=== PATIENT | female | born 2000 | race Caucasian/White ===

== ENCOUNTER 2021-08-06 05:56 | Emergency (ER) | payer OTHER, SELFPAY ==
--- OUTSIDE RECORDS SUMMARY | 2021-08-06 05:59 | XMS REPORT | Continuity of Care Document ---
:2000 Author Organization [facility] t Address [address] [place] [address] Dr. Nazario [address] [place] [id number] Care Team Providers Name Role Phone Unavailable Unavailable Unavailable Problems This patient has no known problems. Allergies, Adverse Reactions, Alerts This patient has no known allergies or adverse reactions. Medications This patient has no known medications. Procedures This patient has no known procedures. Results This patient has no known results.
[2021-08-06] MEDS ORDERED: NA CHLORIDE 0.9% 1,000 ML ONE (06:31)
[2021-08-06 06:47] LABS: Lymphocytes % 33.2 % (15.3-44.8); MPV 8.6 fL (7.6-11.3); RBC Red Blood Cell Count 4.97 M/uL (3.86-4.86)
[2021-08-06 06:49] LABS: Urine Blood Negative (Negative); Urine Glucose Negative (Negative); Urine Protein 2+ (Negative); Urine Specific Gravity >=1.030 (1.005-1.030)
[2021-08-06 07:07] LABS: ALT/SGPT 48 U/L (12-78); AST/SGOT 21 U/L (15-37); Alkaline Phosphatase 70 U/L (45-117); BUN Blood Urea Nitrogen 11 mg/dL (7-18); Bicarbonate 24 mmol/L (21-32); Bilirubin Total 0.3 mg/dL (0.2-1.0); Glucose Level 96 mg/dL (74-106); Potassium 3.2 mmol/L (3.5-5.1); Sodium Level 138 mmol/L (136-145)
[2021-08-06] MEDS ORDERED: POTASSIUM CL SA 10 MEQ TAB PO ONE (07:27)
--- NOTE | 2021-08-06 07:30 | EDPHYS ---
Physician Documentation [facility] Name: Theresa Kearney Age: 21 yrs Sex: Female : 2000 Arrival Date: 08/06/2021 Time: 06:02 Bed 19 Private MD: ED Physician Shailesh Ray HPI: 08/06 06:39 This 21 yrs old Female presents to ER via Ambulatory with complaints of Near Syncope. jr8 06:39 This is a 21-year-old female patient that presented to the emergency room with jr8 complaints of near syncope. Patient stated that she felt acutely dizzy yesterday. All randomly presented self and is not positional. Patient stated that she is now 9 days late for her menstrual cycle and is concerned that it may be related to possibly being . Denies any other symptoms at this time.. Onset: The symptoms/episode began/occurred acutely, yesterday. The patient has not experienced similar symptoms in the past. The patient has not recently seen a physician. 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 - Social history:: Smoking status: Patient denies any tobacco usage or history of. ROS: 06:39 Eyes: Negative for injury, pain, redness, and discharge, ENT: Negative for injury, jr8 pain, and discharge, Neck: Negative for injury, pain, and swelling, Cardiovascular: Negative for chest pain, palpitations, and edema, Respiratory: Negative for shortness of breath, cough, wheezing, and pleuritic chest pain, Abdomen/GI: Negative for abdominal pain, nausea, vomiting, diarrhea, and constipation, Back: Negative for injury and pain, MS/Extremity: Negative for injury and deformity, Skin: Negative for injury, rash, and discoloration. 06:39 Neuro: Positive for near syncope. Exam: 06:39 Constitutional: This is a well developed, well nourished patient who is awake, alert, jr8 and in no acute distress. Eyes: Pupils equal round and reactive to light, extra-ocular motions intact. Lids and lashes normal. Conjunctiva and sclera are non-icteric and not injected. Cornea within normal limits. Periorbital areas with no swelling, redness, or edema. Neck: Trachea midline, no thyromegaly or masses palpated, and no cervical lymphadenopathy. Supple, full range of motion without nuchal rigidity, or vertebral point tenderness. No Meningismus. Cardiovascular: Regular rate and rhythm with a normal S1 and S2. No gallops, murmurs, or rubs. Normal PMI, no JVD. No pulse deficits. Respiratory: Lungs have equal breath sounds bilaterally, clear to auscultation and percussion. No rales, rhonchi or wheezes noted. No increased work of breathing, no retractions or nasal flaring. Abdomen/GI: Soft, non-tender, with normal bowel sounds. No distension or tympany. No guarding or rebound. No evidence of tenderness throughout. Skin: Warm, dry with normal turgor. Normal color with no rashes, no lesions, and no evidence of cellulitis. MS/ Extremity: Pulses equal, no cyanosis. Neurovascular intact. Full, normal range of motion. Neuro: Awake and alert, GCS 15, oriented to person, place, time, and situation. Cranial nerves II-XII grossly intact. Motor strength 5/5 in all extremities. Sensory grossly intact. Cerebellar exam normal. Normal gait. Vital Signs: 06:10 BP 124 / 70; Pulse 104; Resp 14; Temp 98.2; Pulse Ox 99% ; Weight 94.35 kg; Height 5 al4 ft. 1 in. (154.94 cm); Pain 0/10; 06:41 BP 112 / 62 Supine; Pulse 84; Pulse Ox 100% ; ll3 06:41 BP 125 / 89 Sitting; Pulse 94; Pulse Ox 99% on R/A; ll3 06:41 BP 124 / 91 Standing; Pulse 93; Pulse Ox 100% on R/A; ll3 06:10 Body Mass Index 39.30 (94.35 kg, 154.94 cm) al4 MDM: 06:09 Patient medically screened. jr8 07:24 Data reviewed: vital signs, nurses notes, lab test result(s). Data interpreted: Pulse jr8 oximetry: on room air is 100 %. Interpretation: normal. Counseling: I had a detailed discussion with the patient and/or guardian regarding: the historical points, exam findings, and any diagnostic results supporting the discharge/admit diagnosis, lab results, the need for outpatient follow up, an OB/Gyne specialist, to return to the emergency department if symptoms worsen or persist or if there are any questions or concerns that arise at home. Response to treatment: the patient's symptoms have markedly improved after treatment, patient is well hydrated. ED course: Discussed with patient that her symptoms are most likely derived from new . That she was positive on her urine. Everything else lab leon is unremarkable. Will finish hydrating her as she did have slight protein in her urine and needs to follow-up with SCHOOL TEACHER for establishment of care and to recheck her urine. Discussed with her that she needs to stop her Metformin for her PCOS. Otherwise continue her levothyroxine and to start vitamins.. 08/06 06:25 Order name: CBC with Diff [facility] 08/06 06:25 Order name: CMP [facility] 08/06 06:25 Order name: CBC with Automated Diff; Complete Time: 06:52 [facility] 08/06 06:25 Order name: Comprehensive Metabolic Panel; Complete Time: 07:08 [facility] 08/06 06:30 Order name: Glucose, Ancillary Testing; Complete Time: 06:33 [facility]OR 08/06 06:48 Order name: Urine Dipstick-Ancillary; Complete Time: 06:52 [facility] 08/06 06:25 Order name: IV Saline Lock; Complete Time: 06:41 [facility] 08/06 06:25 Order name: Labs collected and sent; Complete Time: 06:41 [facility] 08/06 06:25 Order name: Urine Dipstick-Ancillary (obtain specimen); Complete Time: 06:51 [facility] 08/06 06:25 Order name: Urine Test (obtain specimen); Complete Time: 06:51 [facility] 08/06 06:27 Order name: Orthostatics; Complete Time: 06:51 [facility] 08/06 07:00 Order name: Urine --Ancillary (enter results); Complete Time: 07:23 eb Administered Medications: 06:51 Drug: NS 0.9% 1000 ml Route: IV; Rate: 1 bolus; Site: right antecubital; ll3 07:31 Drug: Potassium Chloride 40 mEq Route: PO; rucker 07:31 Follow up: Response: No adverse reaction rucker Point of Care Testing: Blood Glucose: 06:19 Blood Glucose: 96 mg/dL; ll3 Ranges: Critical Glucose Levels:Adult <50 mg/dl or >400 mg/dl <40 mg/dl or >180 mg/dl Disposition: 19:04 Co-signature as Attending Physician, Shailesh Ray MD I agree with the assessment and kdr plan of care. Disposition Summary: 08/06/21 07:30 Discharge Ordered Location: Home jr8 Problem: new jr8 Symptoms: have improved jr8 Condition: Stable jr8 Diagnosis - Syncope Near jr8 - Encounter for test, result positive jr8 Followup: jr8 - With: Private Physician - When: 1 week - Reason: Recheck today's complaints, Continuance of care, Re-evaluation by your physician Discharge Instructions: - Discharge Summary Sheet jr8 - Near-Syncope jr8 - First Trimester of jr8 - Warning Signs During jr8 - Healthy Weight Gain During , Adult jr8 - Preventing Defects During , Adult jr8 Forms: - Medication Reconciliation Form jr8 - Thank You Letter jr8 - Antibiotic Education jr8 - Prescription Opioid Use jr8 Signatures: Dispatcher [employer] EDShailesh Bower MD MD [facility] Chip Bowles PA PA jr8 Chencho Lopez RN RN ll3 Cehle Cornell4 Janett Colon RN RN rucker
--- NOTE | 2021-08-06 07:30 | ER ---
Nurse's Notes [facility] Name: Theresa Kearney Age: 21 yrs Sex: Female : 2000 Arrival Date: 08/06/2021 Time: 06:02 Bed 19 Private MD: Diagnosis: Syncope Near;Encounter for test, result positive Presentation: 08/06 06:10 Chief complaint: Patient states: "my heart rate and blood pressure have been elevated, al4 and my blood sugar has been low. I am concerned that I might be and would like a blood test." Patient also reports new onset sore/tender breast. LMP Jul 01-. Coronavirus screen: Vaccine status: Patient reports receiving the 2nd dose of the covid vaccine. [employer]. Ebola Screen: No symptoms or risks identified at this time. Initial Sepsis Screen: Does the patient meet any 2 criteria? No. Patient's initial sepsis screen is negative. Does the patient have a suspected source of infection? No. Patient's initial sepsis screen is negative. Risk Assessment: Do you want to hurt yourself or someone else? Patient reports no desire to harm self or others. Onset of symptoms was August 05, 2021. 06:10 Method Of Arrival: Ambulatory al4 06:10 Acuity: DANIELA 3 al4 06:10 Acuity: DANIELA 4 al4 Triage Assessment: 06:25 General: Appears in no apparent distress. comfortable, Behavior is calm, cooperative, al4 appropriate for age. Pain: Denies pain. Neuro: Level of Consciousness is awake, alert, obeys commands, Oriented to person, place, time, situation. Cardiovascular: Capillary refill < 3 seconds Patient's skin is warm and dry. Respiratory: Airway is patent Respiratory effort is unlabored, Respiratory pattern is regular. GI: Reports nausea, Patient currently denies diarrhea, vomiting. Musculoskeletal: Circulation, motion, and sensation intact. 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 - Social history:: Smoking status: Patient denies any tobacco usage or history of. Screenin:41 Abuse screen: Denies threats or abuse. Nutritional screening: No deficits noted. ll3 Tuberculosis screening: No symptoms or risk factors identified. Fall Risk No fall in past 12 months (0 pts). No secondary diagnosis (0 pts). IV access (20 points). Ambulatory Aid- None/Bed Rest/Nurse Assist (0 pts). Gait- Normal/Bed Rest/Wheelchair (0 pts) Mental Status- Oriented to own ability (0 pts). Total Godinez Fall Scale indicates No Risk (0-24 pts). Assessment: 06:41 General: Appears comfortable, Behavior is calm, cooperative. Pain: Denies pain. Neuro: ll3 Level of Consciousness is awake, alert, obeys commands, Oriented to person, place, time, situation. Respiratory: Respiratory effort is even, unlabored, Respiratory pattern is regular, symmetrical. GI: Reports nausea. Derm: Skin is pink, warm \\T\\ dry. Reports Breast tenderness. Vital Signs: 06:10 BP 124 / 70; Pulse 104; Resp 14; Temp 98.2; Pulse Ox 99% ; Weight 94.35 kg; Height 5 al4 ft. 1 in. (154.94 cm); Pain 0/10; 06:41 BP 112 / 62 Supine; Pulse 84; Pulse Ox 100% ; ll3 06:41 BP 125 / 89 Sitting; Pulse 94; Pulse Ox 99% on R/A; ll3 06:41 BP 124 / 91 Standing; Pulse 93; Pulse Ox 100% on R/A; ll3 06:10 Body Mass Index 39.30 (94.35 kg, 154.94 cm) al4 ED Course: 06:02 Patient arrived in ED. wm 06:09 Chip Bowles PA is PHCP. jr8 06:09 Shailesh Ray MD is Attending Physician. jr8 06:25 Triage completed. al4 06:29 Arm band placed on. al4 06:41 Chencho Lopez, NISHI is Primary Nurse. ll3 06:41 Patient has correct armband on for positive identification. Bed in low position. Call ll3 light in reach. Side rails up X 1. Adult w/ patient. 06:41 Initial lab(s) drawn, by me, sent to lab. Urine collected: clean catch specimen, clear. ll3 Inserted saline lock: 22 gauge in right antecubital area, using aseptic technique. Blood collected. 06:51 CMP Sent. ll3 06:51 CBC with Diff Sent. ll3 08:07 No provider procedures requiring assistance completed. IV discontinued, intact, rucker Pressure dressing applied. Administered Medications: 06:51 Drug: NS 0.9% 1000 ml Route: IV; Rate: 1 bolus; Site: right antecubital; ll3 07:31 Drug: Potassium Chloride 40 mEq Route: PO; rucker 07:31 Follow up: Response: No adverse reaction Point of Care Testing: Blood Glucose: 06:19 Blood Glucose: 96 mg/dL; ll3 Ranges: Outcome: 07:30 Discharge ordered by MD. harding 08:07 Discharged to home rucker 08:07 Condition: good 08:07 Discharge instructions given to patient. 08:07 Patient left the ED. rucker Signatures: Chip Bowles PA PA jr8 Madisyn Rico Lynsea, RN RN 3 Chele Cornell Heather, RN RN
[2021-08-06 09:24] VITALS: TEMP 98.2
[2021-08-06 09:26] VITALS: BP 124/91; O2SAT 100
== END 2021-08-06 08:07 | disposition home or self-care (01) ==
LOC: ER 05:56
DX: Z32.01 Encounter for pregnancy test, result positive (principal); Z88.0 Allergy status to penicillin
CPT/HCPCS: 85025; 36415; 81025; 82947; 81003; 80053; 99284; J7030

== ENCOUNTER 2023-03-16 23:20 | Emergency (ER) | payer OTHER ==
--- OUTSIDE RECORDS SUMMARY | 2023-03-16 23:46 | XMS REPORT | Continuity of Care Document ---
:2000 Author Organization [facility] t Address [address] [place] [address] [place] [id number] Care Team Providers Name Role Phone PCP, PATIENT DOES NOT HAVE A Primary Care Physician Unavaila NIECY Santiago Attending Clinician Unavailable Niecy Anderson MD Attending Clinician Tootie Wells NP Attending Clinician TOOTIE WELLS Attending Clinician Unavailable Zach Hernandez CRNA Attending Clinician Sonya Gusman CRNA Attending Clinician Karina Ochoa MD Attending Clinician Doctor Unassigned, [place] Attending Clinician Unavailable ANIRUDH GLORIA Attending Clinician Unavailable Anirudh Gloria MD Attending Clinician Nurse, [facility] Attending Clinician Unavailable Ultrasound, Adc M[facility] Attending Clinician Unavailable Deepak Gerard MD Attending Clinician [phone] DEEPAK GERARD Attending Clinician Unavailable Ultrasound, Ang-Mfm Attending Clinician Unavailable Carla Traylor MD Attending Clinician CARLA TRAYLOR Attending Clinician Unavailable NIECY ANDERSON Admitting Clinician Unavailable Niecy Anderson MD Admitting Clinician Payers Payer Name Policy Type Policy Number Effective Date Expiration Date [facility] [id number] 2021 PREFERRED GENERIC 00:00:00 Problems Condition Condition Condition Status Onset Resolution Last Treating Co mments Source Name Details Category Date Date Treatment Clinician Date Encounter Encounter Disease Active 2021-05 Uni vers for for 111 ity of elective elective 00:00: [place] induction induction 00 [facility] labor of labor [place] Morbid Morbid Disease Active 2021-05 Univers obesity obesity 11 [place] of with body [place] 00:[place] mass index mass index 00 Me dical of Branch 40.0-49.9 40.0-49.9 Liveborn Liveborn Disease Active 2021-05 Unive rs , of , of 11 it y of rodriguez rodrigue[place] 00:[place] , , 00 [place] dical born in born in [facility] by by delivery delivery 35 weeks 35 weeks Disease Active 2021-05 Unive rs gestation gestation 0-26 ity of of of 00:00: [place] 00 [facility] 39 weeks 39 weeks Disease Active 2021-05 Unive rs gestation gestation 0-26 ity of of of 00:00: [place] 00 [facility] Rh Rh Disease Active Univers negative, negative, 8 [place]y of antepartum antepartum 00:00: [place] , third , third 00 Medical trimester trimester Bran ch Hypothyroi Hypothyroi Disease Active U nivers dism, dism, 7- ity of unspecifie unspecifie 00:00[place] d type d type 00 [facility] Hypothyroi Hypothyroi Disease Active U nivers dism dism 7-29 ity of during during 00:00: [place] 00 [facility] in third in third Branch trimester trimester Encounter Encounter Disease Active Uni vers for for 4-28 [place]y of supervisio supervisio 00:[place] of n of 00 [facility] normal normal [place] first first in first in first trimester trimester Obesity in Obesity in Disease Active U nivers 4-04 ity of 00:00: [address] Supervisio Supervisio Disease Active U nivers n of high n of high 4-04 ity of risk risk 00:00: [place] 00 Medi [facility] in third in third Branch trimester trimester No known No known Disease Unive rs active active ity of problems problems [facility] Allergies, Adverse Reactions, Alerts Allergy Allergy Status Severity Reaction(s) Onset Inactive Treating Comm ents Source Name Type Date Date Clinician Penicill Propensi Active Other - See Constipa t Univers in ty to comments 05-28 ion with ity of adverse 00:00: rectal [place] reaction 00 bleeding Medica l s Branch PENICILL DRUG Active Other-Cmnt Univ ers IN INGREDI 05-28 ity of 00:00: [place] 00 Medical Branch Social History Social Habit Start Date Stop Date Quantity Comments Source ASSERTION 2021-07-15 [facility] History of Passive smoker [place] of tobacco use [facility] Alcohol intake 2022-05-11 2022-05-11 0 /d University 00:00:00 00:00:00 [facility] Exposure to 2022-03-29 2022-04-08 Not sure [facility] SARS-CoV-2 00:00:00 08:44:00 [facility] (event) [place] Tobacco use and 2021-12-17 2021-12-17 Smokeless tobacco Un iversity of exposure 00:00:00 00:00:00 non-user [facility] Sex Assigned At 2000 2000 Universit y of 00:00:00 00:00:00 [facility] Smoking Status Start Date Stop Date Source Never smoked tobacco [facility] Medications Ordered Filled Start Stop Current Ordering Indication Dosage Frequency Signature Comments Components Source Medication Medication Date Date Medication? Clinician (SIG) Name Name [facility] 2021-05- Take by Univers no.95/pawel 2-05 -05 mouth. ity o f us 05:20: 00:00 [place] fum/folic 04 :00 Medical ac Branch ( ORAL) [facility] 2021-05 Yes Take by Univers no.95/pawel 1-13 mouth. ity of us 13:26: [place] fum/folic 33 Medical ac Branch ( ORAL) PNV 2021-05 Yes Take by Univers no.95/pawel 1-13 mouth. ity of us 13:26: [place] fum/folic 33 Medical ac Branch ( ORAL) PNV 2021-05 Yes Take by Univers no.95/pawel 1-13 mouth. ity of us 13:26: [place] fum/folic 33 Medical ac Branch ( ORAL) PNV 2021-05 Yes Take by Univers no.95/pawel 1-13 mouth. ity of us 13:26: [place] fum/folic 33 Medical ac Branch ( ORAL) PNV 2021-05 Yes Take by Univers no.95/pawel 1-13 mouth. ity of us 13:26: [place] fum/folic 33 Medical ac Branch ( ORAL) PNV 2021-05 Yes Take by Univers no.95/pawel 1-13 mouth. ity of us 13:26: [place] fum/folic 33 Medical ac Branch ( ORAL) PNV 2021-05 Yes Take by Univers no.95/pawel 1-13 mouth. ity of us 13:26: [place] fum/folic 33 Medical Branch ( ORAL) ibuprofen 2021-05 Yes 800mg 800 mg, Univ ers (IBU) 1-13 Oral, Q8H, ity of tablet 800 04:00: First dose [place] mg 00 on [facility] 04/02/22 Branch at 2200, Until Discontinu ed, Routine ibuprofen 2021-05- No 800mg 800 mg, Uni vers (IBU) 1-13 11-13 Oral, Q8H, ity of tablet 800 04:00: 21:26 First dose [place] mg 00 :36 on [facility] 04/02/22 Branch at 2200, Until Discontinu ed, Routine HYDROcodone 2021-05 Yes 2{tbl} 2 tablet, Univers -acetaminop 1-13 Oral, ity of hen (NORCO 02:00: Q6HPRN, [place] 5) 5-325 mg 00 Starting Medi fito tablet 2 on [facility] Branch tablet 04/02/22 at 1999, Until Discontinu ed, Routine, Pain (scale 7-10), Alternate with Ibuprofen HYDROcodone 2021-05 Yes 1{tbl} 1 tablet, Univers -acetaminop 1-13 Oral, ity of hen (NORCO 02:00: Q6HPRN, [place] 5) 5-325 mg 00 Starting Medi fito tablet 1 on [facility] Branch tablet 04/02/22 at 1999, Until Discontinu ed, Routine, Pain (scale 4-6), Alternate with Ibuprofen HYDROcodone 2021-05- No 2{tbl} 2 tablet, Univers -acetaminop 1-13 11-13 Oral, ity of hen (NORCO 02:00: 21:26 Q6HPRN, [place] 5) 5-325 mg 00 :36 Starting Medi fito tablet 2 on [facility] Branch tablet 04/02/22 at 2000, Until 04/03/22 at 1526, Routine, Pain (scale 7-10), Alternate with Ibuprofen HYDROcodone 2021-05- No 1{tbl} 1 tablet, Univers -acetaminop 06-03 Oral, ity of hen (NORCO 02:00: 21:26 Q6HPRN, [place] 5) 5-325 mg 00 :36 Starting Medi fito tablet 1 on [facility] Branch tablet 04/02/22 at 2000, Until 04/03/22 at 1526, Routine, Pain (scale 4-6), Alternate with Ibuprofen gabapentin 2021-05 Yes 300mg 300 mg, Uni vers (NEURONTIN) 06-02 Oral, TID, it y of capsule 300 14:00: First dose [place] mg 00 on [facility] 04/02/22 Branch at 0800, Until Discontinu ed, Routine gabapentin 2021-05 No 300mg 300 mg, Un carla (NEURONTIN) 06-02 Oral, TID, i ty of capsule 300 14:00: 21:26 First dose [place] mg 00 :36 on [facility] 04/02/22 Branch at 0800, Until Discontinu ed, Routine acetaminoph 2021-05 No 1000mg 1,000 mg, Univers en 06-02 Oral, Q6H, ity of (TYLENOL) 14:00: 20:33 2 doses, [place] tablet 00 :00 First dose Medical 1,000 mg on [facility] Branch 04/02/22 at 0800, Last dose on [facility] 04/02/22 at 1200, Routine acetaminoph 2021-05 No 1000mg 1,000 mg, Univers en ADULT 06-02 IV ity of (OFIRMEV) 08:00: 08:19 Infusion, [place] injection 00 :00 at 400 Medical 1,000 mg mL/hr Branch Administer over 15 Minutes, ONCE, 1 dose, On [facility] 04/02/22 at 0200, Routine
Indicatio n: Perioperat tariq Patient ketorolac 2021-05 No 30mg 30 mg, Unive rs (TORADOL) 06-02 Slow IV ity of injection 04:00: 22:47 Push, Q6H, [place] 30 mg 00 :00 4 doses, Medical First dose Branch on Mon04/01/22 at 2200, Last dose on Mon04/02/22 at 1200, Routine lactated 2021-05- No 1000mL at 125 [facility] ers ringers IV 06-02 1112 mL/hr, ity of infusion 03:15: 06:46 1,000 mL, [place] 1,000 mL 00 :18 IV Medical Infusion, Branch ONCE, 1 dose, On Mon04/01/22 at 2115, Routine sodium 2021-05 Yes PRN, Univers chloride 06-02 Starting ity of 0.9 % 03:08: on Mon [place] irrigation 04/01/22 Medic al solution at 2108, Branch Until Discontinu ed, Intra-op sodium 2021-05 No PRN, Univers chloride 06-02 Starting ity of 0.9 % 03:08: 21:26 on Mon [place] irrigation 00 :36 04/01/22 Medic al solution at 2108, Branch Until 04/03/22 at 1526, Intra-op rho(D) 2021-05 Yes 300ug 300 mcg, Univer s immune 06-02 Intramuscu ity of globulin 02:27: lar, ONCE, [place] (RHOGAM) 58 For 1 Medical syringe 300 dose, Branch mcg Conditiona l, Routine rho(D) 2021-05 No 300ug 300 mcg, Unive rs immune 06-02 Intramuscu ity of globulin 02:27: 21:26 [place], ONCE, [place] (RHOGAM) 58 :36 For 1 Medical syringe 300 dose, Branch mcg Conditiona l, Routine diphenhydrA 2021-05 Yes 25mg 25 mg, [facility] ers MINE 06-02 Slow IV ity of (BENADRYL) 02:17: Push, [place] injection 06 Q6HPRN, Medical 25 mg Starting Branch on Mon04/01/22 at 2017, Until Discontinu ed, Routine, Itching diphenhydrA 2021-05 Yes 25mg 25 mg, [facility] ers MINE 06-02 Oral, ity of (BENADRYL) 02:17: Q6HPRN, [place] tablet 25 06 Starting Medica l mg on Mon Branch 04/01/22 at 2017, Until Discontinu ed, Routine, Sleep, Itching ondansetron 2021-05 Yes 4mg 4 mg, Slow Univers (ZOFRAN 1-12 IV Push, ity of (PF)) 02:17: Q8HPRN, [place] injection 4 06 Starting Medi fito mg on Mon Branch 04/01/22 at 2017, Until Discontinu ed, Routine, Nausea and Vomiting (N/V) bisacodyL 2021-05 Yes 10mg 10 mg, Univer s (DULCOLAX) 1-12 Rectal, ity of suppository 02:17: QDAILYPRN, [place] 10 mg 06 Starting Medical on Mon Branch 04/01/22 at 2016, Until Discontinu ed, Routine, Constipati on simethicone 2021-05 Yes 160mg 160 mg, Un carla (GAS RELIEF 1-12 Oral, ity of (SIMETHICON 02:17: PC+HSPRN, [place] E)) 06 Starting Medical chewable on Mon tablet 160 04/01/22 mg at 2016, Until Discontinu ed, Routine, Gas docusate 2021-05 Yes 200mg 200 mg, Unive rs (COLACE) 1-12 Oral, ity of capsule 200 02:17: QDAILYPRN, [place] mg 06 Starting Medical on Mon Branch 04/01/22 at 2017, Until Discontinu ed, Routine, Constipati on magnesium 2021-05 Yes 30mL 30 mL, Univer s hydroxide 1-12 Oral, ity of (MILK OF 02:17: QDAILYPRN, [place] MAGNESIA) 06 Starting Medica l 400 mg/5 mL on Mon Branch suspension 04/01/22 30 mL at 2017, Until Discontinu ed, Routine, Constipati on lactated 2021-05 Yes 1000mL at 125 Unive rs ringers IV 1-12 mL/hr, ity of infusion 02:17: 1,000 mL, [place] 1,000 mL 06 IV Medical Infusion, Branch PRN, 1 dose, Starting on Mon04/01/22 at 2017, Until Discontinu ed, Routine diphenhydrA 2021-05 No 25mg 25 mg, Uni vers MINE -12 11-13 Slow IV ity of (BENADRYL) 02:17: 21:26 Push, [place] injection 06 :36 Q6HPRN, Medical 25 mg Starting Branch on 04/01/22 at 2017, Until 04/03/22 at 1526, Routine, Itching diphenhydrA 2021-05- No 25mg 25 mg, Uni vers MINE 06-02 Oral, ity of (BENADRYL) 02:17: 21:26 Q6HPRN, [place] tablet 25 06 :36 Starting Medica l mg on Mon Branch 04/01/22 at 2017, Until 04/03/22 at 1526, Routine, Sleep, Itching ondansetron 2021-05- No 4mg 4 mg, Slow Univers (ZOFRAN 06-02 IV Push, ity of (PF)) 02:17: 21:26 Q8HPRN, [place] injection 4 06 :36 Starting Medi fito mg on Mon Branch 04/01/22 at 2017, Until 04/03/22 at 1526, Routine, Nausea and Vomiting (N/V) bisacodyL 2021-05- No 10mg 10 mg, Unive rs (DULCOLAX) 06-02 Rectal, ity o f suppository 02:17: 21:26 QDAILYPRN, [place] 10 mg 06 :36 Starting Medical on Mon Branch 04/01/22 at 2017, Until 04/03/22 at 1526, Routine, Constipati on simethicone 2021-05- No 160mg 160 mg, U nivers (GAS RELIEF 06-02 Oral, ity of (SIMETHICON 02:17: 21:26 PC+HSPRN, [place] E)) 06 :36 Starting Medical chewable on Mon tablet 160 04/01/22 mg at 2017, Until 04/03/22 at 1526, Routine, Gas docusate 2021-05- No 200mg 200 mg, Univ ers (COLACE) 06-02 Oral, ity of capsule 200 02:17: 21:26 QDAILYPRN, [place] mg 06 :36 Starting Medical on Mon Branch 04/01/22 at 2017, Until 04/03/22 at 1526, Routine, Constipati on magnesium 2021-05 30mL 30 mL, Unive rs hydroxide 06-02 Oral, ity of (MILK OF 02:17: 21:26 QDAILYPRN, [place] MAGNESIA) 06 :36 Starting Medica l 400 mg/5 mL on Fri Branch suspension 04/01/22 30 mL at 2017, Until 04/03/22 at 1526, Routine, Constipati on lactated 2021-05 No 1000mL at 125 Univ ers ringers IV 06-0213 mL/hr, ity of infusion 02:17: 21:26 1,000 mL, [place] 1,000 mL 06 :36 IV Medical Infusion, Branch PRN, 1 dose, Starting on Mon04/01/22 at 2017, Until 04/03/22 at 1526, Routine morpHINE PF 2021-05 Epidural, Univers (DURAMORPH- 06-02 ONCE INTRA i ty of PF) 02:03: 16:04 PROCEDURE, [place] injection 00 :40 Starting Medica l on Mon Branch 04/01/22 at 2003, Until 04/04/22 at 1004, Routine, Intra-op acetaminoph 2021-05 No IV Unive rs en ADULT 06-02 Infusion, ity o f ([facility]) 01:40: 02:15 Administer [place] injection 00 :50 over 15 Medical Minutes, Branch ONCE INTRA PROCEDURE, Starting on Mon04/01/22 at 1940, Until Mon04/01/22 at 2014, Routine, Intra-op acetaminoph 2021-05 No IV Unive rs en ADULT 06-02 Infusion, ity o f ([facility]) 01:40: 02:15 Administer [place] injection 00 :50 over 15 Medical Minutes, Branch ONCE INTRA PROCEDURE, Starting on Mon04/01/22 at 1940, Until Mon04/01/22 at 2014, Routine, Intra-op acetaminoph 2021-05 No IV Unive rs en ADULT -05 01- Infusion, ity o f ([facility]) 01:40: 02:15 Administer [place] injection 00 :50 over 15 Medical Minutes, Branch ONCE INTRA PROCEDURE, Starting on Mon04/01/22 at 1940, Until Mon04/01/22 at 2015, Routine, Intra-op LR 1000 mL 2021-05- No IV Univer s + oxytocin 06-02 Infusion, ity of 40 units 40 01:27: 02:15 CONTINUOUS [place] unit/ 1,000 00 :50 PRN, Medical mL IV Starting Branch Solution on Mon04/01/22 at 1927, Until Mon04/01/22 at 2015, Routine, Intra-op LR 1000 mL 2021-05- No IV Univer s + oxytocin 06-02 Infusion, ity of 40 units 40 01:27: 02:15 CONTINUOUS [place] unit/ 1,000 00 :50 PRN, Medical mL IV Starting Branch Solution on Mon04/01/22 at 1927, Until Mon04/01/22 at 2015, Routine, Intra-op LR 1000 mL 2021-05- No IV Univer s + oxytocin 06-02 Infusion, ity of 40 units 40 01:27: 02:15 CONTINUOUS [place] unit/ 1,000 00 :50 PRN, Medical mL IV Starting Branch Solution on Mon04/01/22 at 1927, Until Mon04/01/22 at 2014, Routine, Intra-op ceFAZolin 2021-05- No IV Univers (ANCEF) 06-02 Piggyback, ity o f injection 00:48: 02:15 ONCE INTRA [place] 00 :50 PROCEDURE, Medical Starting Branch on Mon04/01/22 at 1848, Until Mon04/01/22 at 2015, REYES, Intra-op ceFAZolin 2021-05- No IV Univers (ANCEF) 06-02 Piggyback, ity o f injection 00:48: 02:15 ONCE INTRA [place] 00 :50 PROCEDURE, Medical Starting Branch on Mon04/01/22 at 1848, Until Mon04/01/22 at 2015, REYES, Intra-op ceFAZolin 2021-05- No IV Univers (ANCEF) 06-02 Piggyback, ity o f injection 00:48: 02:15 ONCE INTRA [place] 00 :50 PROCEDURE, Medical Starting Branch on Mon04/01/22 at 1848, Until Mon04/01/22 at 2014, REYES, Intra-op lactated 2021-05- No IV Univers ringers IV 06-02 Infusion, ity of infusion 00:46: 02:15 CONTINUOUS [place] 00 :50 PRN, Medical Starting Branch on Mon04/01/22 at 1846, Until Mon04/01/22 at 2015, Routine, Intra-op lactated 2021-05- No IV Univers ringers IV 06-02 Infusion, ity of infusion 00:46: 02:15 CONTINUOUS [place] 00 :50 PRN, Medical Starting Branch on Mon04/01/22 at 1846, Until Mon04/01/22 at 2014, Routine, Intra-op lactated 2021-05- No IV Univers ringers IV 06-02 Infusion, ity of infusion 00:46: 02:15 CONTINUOUS [place] 00 :50 PRN, Medical Starting Branch on Mon04/01/22 at 1846, Until Mon04/01/22 at 2014, Routine, Intra-op lidocaine-e 2021-05- No Intravenou Univers pinephrine 06-02 s, ONCE ity o f (XYLOCAINE 00:36: 02:15 INTRA [place] W/EPINEPHRI 00 :50 PROCEDURE, Me dical NE) 2 Starting Branch %-1:200,000 on Mon injection 04/01/22 at 1836, Until Mon04/01/22 at 2015, Routine, Intra-op lidocaine-e 2021-05- No Intravenou Univers pinephrine 06-02- s, ONCE ity o f (XYLOCAINE 00:36: 02:15 INTRA [place] W/EPINEPHRI 00 :50 PROCEDURE, Me dical NE) 2 Starting Branch %-1:200,000 on Mon injection 04/01/22 at 1836, Until Mon04/01/22 at 2014, Routine, Intra-op lidocaine-e 2021-05- No Intravenou Univers pinephrine 06-02 s, ONCE ity o f (XYLOCAINE 00:36: 02:15 INTRA [place] W/EPINEPHRI 00 :50 PROCEDURE, Me dical NE) 2 Starting Branch %-1:200,000 on Fri injection 04/01/22 at 1836, Until Mon04/01/22 at 2014, Routine, Intra-op gabapentin 2021-05 Yes [id number] 300mg Take 1 Univers 300 mg 1-12 capsule by ity of capsule 00:00: mouth in [place] 00 the Medical morning Branch and 1 capsule at noon and 1 capsule in the evening. ibuprofen 2021-05 Yes [id number] 800mg Take 1 Univers 800 mg 1-12 tablet by ity of tablet 00:00: mouth [place] 00 every 8 Medical (eight) Branch hours. 2021-05 Yes [id number] 1{tbl} Take 1 Univers vitamin 1-12 tablet by ity of w/FA tablet 00:00: mouth in [place] 00 the Medical morning. Branch docusate 2021-05 Yes [id number] 200mg Take 2 U nivers 100 mg 1-12 capsules ity of capsule 00:00: by mouth [place] 00 once daily Medical as needed Branch for Constipati on. ferrous 2021-05 Yes [id number] 325mg Take 1 Un carla sulfate 325 1-12 tablet by ity of mg (65 mg 00:00: mouth [place] iron) 00 the Medical tablet morning Branch and 1 tablet in the evening. gabapentin 2021-05 Yes [id number] 300mg Take 1 Univers 300 mg 1-12 capsule by ity of capsule 00:00: mouth in [place] 00 the Medical morning Branch and 1 capsule at noon and 1 capsule in the evening. ibuprofen 2021-05 Yes [id number] 800mg Take 1 Univers 800 mg 1-12 tablet by ity of tablet 00:00: mouth [place] 00 every 8 Medical (eight) Branch hours. 2021-05 Yes [id number] 1{tbl} Take 1 Univers vitamin 1-12 tablet by ity of w/FA tablet 00:00: mouth in [place] 00 the Medical morning. Branch docusate 2021-05 Yes [id number] 200mg Take 2 U nivers 100 mg 1-12 capsules ity of capsule 00:00: by mouth [place] 00 once daily Medical as needed Branch for Constipati on. ferrous 2021-05 Yes [id number] 325mg Take 1 Un carla sulfate 325 1-12 tablet by ity of mg (65 mg 00:00: mouth [place] iron) 00 the Medical tablet morning Branch and 1 tablet in the evening. gabapentin 2021-05 Yes [id number] 300mg Take 1 Univers 300 mg 1-12 capsule by ity of capsule 00:00: mouth in [place] 00 the Medical morning Branch and 1 capsule at noon and 1 capsule in the evening. ibuprofen 2021-05 Yes [id number] 800mg Take 1 Univers 800 mg 1-12 tablet by ity of tablet 00:00: mouth [place] 00 every 8 Medical (eight) Branch hours. 2021-05 Yes [id number] 1{tbl} Take 1 Univers vitamin 1-12 tablet by ity of w/FA tablet 00:00: mouth in [place] 00 the Medical morning. Branch docusate 2021-05 Yes [id number] 200mg Take 2 U nivers 100 mg 1-12 capsules ity of capsule 00:00: by mouth [place] 00 once daily Medical as needed Branch for Constipati on. ferrous 2021-05 Yes [id number] 325mg Take 1 Un carla sulfate 325 1-12 tablet by ity of mg (65 mg 00:00: mouth in [facility] s iron) 00 the Medical tablet morning Branch and 1 tablet in the evening. gabapentin 2021-05 Yes [id number] 300mg Take 1 Univers 300 mg 1-12 capsule by ity of capsule 00:00: mouth in [place] 00 the Medical morning Branch and 1 capsule at noon and 1 capsule in the evening. ibuprofen 2021-05 Yes [id number] 800mg Take 1 Univers 800 mg 1-12 tablet by ity of tablet 00:00: mouth [place] 00 every 8 Medical (eight) Branch hours. 2021-05 Yes [id number] 1{tbl} Take 1 Univers vitamin 1-12 tablet by ity of w/FA tablet 00:00: mouth in [place] 00 the Medical morning. Branch docusate 2021-05 Yes [id number] 200mg Take 2 U nivers 100 mg 1-12 capsules ity of capsule 00:00: by mouth [place] 00 once daily Medical as needed Branch for Constipati on. ferrous 2021-05 Yes [id number] 325mg Take 1 Un car[place] sulfate 325 1-12 tablet by ity of mg (65 mg 00:00: mouth [place] iron) 00 the Medical tablet morning Branch and 1 tablet in the evening. gabapentin 2021-05 Yes [id number] 300mg Take 1 Univers 300 mg 1-12 capsule by ity of capsule 00:00: mouth in [place] 00 the Medical morning Branch and 1 capsule at noon and 1 capsule in the evening. ibuprofen 2021-05 Yes [id number] 800mg Take 1 Univers 800 mg 1-12 tablet by ity of tablet 00:00: mouth [place] 00 every 8 Medical (eight) Branch hours. 2021-05 Yes [id number] 1{tbl} Take 1 Univers vitamin 1-12 tablet by ity of w/FA tablet 00:00: mouth [place] 00 the Medical morning. Branch docusate 2021-05 Yes [id number] 200mg Take 2 U nivers 100 mg 1-12 capsules ity of capsule 00:00: by mouth [place] 00 once daily Medical as needed Branch for Constipati on. ferrous 2021-05 Yes [id number] 325mg Take 1 Un carla sulfate 325 1-12 tablet by ity of mg (65 mg 00:00: [facility] Medical tablet morning Branch and 1 tablet in the evening. ibuprofen 2021-05 Yes [id number] 800mg Take 1 Univers 800 mg 1-12 tablet by ity of tablet 00:00: mouth [place] 00 every 8 Medical (eight) Branch hours. docusate 2021-05 Yes [id number] 200mg Take 2 U nivers 100 mg 1-12 capsules ity of capsule 00:00: by mouth [place] 00 once daily Medical as needed Branch for Constipati on. ferrous 2021-05 Yes [id number] 325mg Take 1 Un car[place] sulfate 325 1-12 tablet by ity of mg (65 mg 00:00: mouth [place] iron) 00 the Medical tablet morning Branch and 1 tablet in the evening. ibuprofen 2021-05 Yes [id number] 800mg Take 1 Univers 800 mg 1-12 tablet by ity of tablet 00:00: mouth [place] 00 every 8 Medical (eight) Branch hours. docusate 2021-05 Yes [id number] 200mg Take 2 U nivers 100 mg 1-12 capsules ity of capsule 00:00: by mouth [place] 00 once daily Medical as needed Branch for Constipati on. ferrous 2021-05 Yes [id number] 325mg Take 1 Un car[place] sulfate 325 1-12 tablet by ity of mg (65 mg 00:00: mouth [place] iron) 00 the Medical tablet morning Branch and 1 tablet in the evening. ibuprofen 2021-05 Yes [id number] 800mg Take 1 Univers 800 mg 1-12 tablet by ity of tablet 00:00: mouth [place] 00 every 8 Medical (eight) Branch hours. docusate 2021-05 Yes [id number] 200mg Take 2 U nivers 100 mg 1-12 capsules ity of capsule 00:00: by mouth [place] 00 once daily Medical as needed Branch for Constipati on. ferrous 2021-05 Yes [id number] 325mg Take 1 Un [place] sulfate 325 1-12 tablet by ity of mg (65 mg 00:00: mouth [place] iron) 00 the Medical tablet morning Branch and 1 tablet in the evening. ibuprofen 2021-05 Yes [id number] 800mg Take 1 Univers 800 mg 1-12 tablet by ity of tablet 00:00: mouth [place] 00 every 8 Medical (eight) Branch hours. docusate 2021-05 Yes [id number] 200mg Take 2 U nivers 100 mg 1-12 capsules ity of capsule 00:00: by mouth [place] 00 once daily Medical as needed Branch for Constipati on. ferrous 2021-05 Yes [id number] 325mg Take 1 Un [place] sulfate 325 1-12 tablet by ity of mg (65 mg 00:00: mouth [place] iron) 00 the Medical tablet morning Branch and 1 tablet in the evening. gabapentin 2021-05- No [id number] 300mg Take 1 Univers 300 mg 06-02 12-05 capsule by ity of capsule 00:00: 00:00 mouth in [place] 00 :00 the Medical morning Branch and 1 capsule at noon and 1 capsule in the evening. 2021-05- No [id number] 1{tbl} Take 1 Univers vitamin -12 12-05 tablet by ity of w/FA tablet 00:00: 00:00 mouth in [place] 00 :00 the Medical morning. Branch HYDROcodone 2021-05- No [id number] 1{tbl} Take 1 U nivers -acetaminop 12 11-20 tablet by it y of hen 5-325 00:00: 05:59 mouth [place] mg tablet 00 :00 every 6 Medical (six) Branch hours as needed for Pain (scale 4-6) (Alternate with Ibuprofen) for up to 7 days. Indication s: acute pain HYDROcodone 2021-05 No 4647 1{tbl} Take 1 U nivers -acetaminop 1-12 11-20 tablet by it y of hen 5-325 00:00: 05:59 mouth [place] mg tablet 00 :00 every 6 Medical (six) Branch hours as needed for Pain (scale 4-6) (Alternate with Ibuprofen) for up to 7 days. Indication s: acute pain HYDROcodone 2021-05 No 4647 1{tbl} Take 1 U nivers -acetaminop 1-12 11-20 tablet by it y of hen 5-325 00:00: 05:59 mouth [place] mg tablet 00 :00 every 6 Medical (six) Branch hours as needed for Pain (scale 4-6) (Alternate with Ibuprofen) for up to 7 days. Indication s: acute pain HYDROcodone 2021-05 No 4647 1{tbl} Take 1 U nivers -acetaminop 1-12 11-20 tablet by it y of hen 5-325 00:00: 05:59 mouth [place] mg tablet 00 :00 every 6 Medical (six) Branch hours as needed for Pain (scale 4-6) (Alternate with Ibuprofen) for up to 7 days. Indication s: acute pain HYDROcodone 2021-05 No 4647 1{tbl} Take 1 U nivers -acetaminop 1-12 11-20 tablet by it y of hen 5-325 00:00: 05:59 mouth [place] mg tablet 00 :00 every 6 Medical (six) Branch hours as needed for Pain (scale 4-6) (Alternate with Ibuprofen) for up to 7 days. Indication s: acute pain ceFAZolin 2021-05 2000mg 2 g (2,000 Univers in 0.9% 06-01 mg), IV ity of sodium 23:51: 00:44 [place] chloride 46 :00 [facility] 2 HOLDING Branch gram/100 mL ONCE, 1 RTU 2 g dose, Starting on Mon04/01/22 at 1751, Until Mon04/01/22 at 1844, Administer over 30 Minutes, 100 mL
Reas on for Anti-Infec tive: Surgical Prophylaxi s
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
Duration of therapy: within 24 hours of surgery phenylephri 2021-05- No Slow IV Un carla ne 06-01 Push, ONCE ity of (VAZCULEP) 21:28: 02:15 INTRA [place] injection 00 :50 PROCEDURE, Medi fito Starting Branch on Mon04/01/22 at 1528, Until Mon04/01/22 at 2014, Routine, Intra-op ePHEDrine 2021-05- No Slow IV Univ ers 25 mg/5 mL 06-01 Push, ONCE it y of (5 mg/mL) 21:28: 02:15 INTRA [place] syringe 00 :50 PROCEDURE, Medica l Starting Branch on Mon04/01/22 at 1528, Until Mon04/01/22 at 2014, Routine, Intra-op phenylephri 2021-05- No Slow IV Un carla ne 06-01 Push, ONCE ity of (VAZCULEP) 21:28: 02:15 INTRA [place] injection 00 :50 PROCEDURE, Medi fito Starting Branch on Mon04/01/22 at 1528, Until Mon04/01/22 at 2014, Routine, Intra-op ePHEDrine 2021-05- No Slow IV Univ ers 25 mg/5 mL 06-01 Push, ONCE it y of (5 mg/mL) 21:28: 02:15 INTRA [place] syringe 00 :50 PROCEDURE, Medica l Starting Branch on Mon04/01/22 at 1528, Until Mon04/01/22 at 2014, Routine, Intra-op phenylephri 2021-05- No Slow IV Un carla ne 06-01 Push, ONCE ity of (VAZCULEP) 21:28: 02:15 INTRA [place] injection 00 :50 PROCEDURE, Medi fito Starting Branch on Mon04/01/22 at 1528, Until Mon04/01/22 at 2014, Routine, Intra-op ePHEDrine 2021-05- No Slow IV Univ ers 25 mg/5 mL 06-01 Push, ONCE it y of (5 mg/mL) 21:28: 02:15 INTRA [place] syringe 00 :50 PROCEDURE, Medica l Starting Branch on Mon04/01/22 at 1528, Until Mon04/01/22 at 2015, Routine, Intra-op PIB 2021-05- No Epidural, Univers fentaNYL-ro 06-01 ONCE INTRA i ty of pivacaine 2 20:32: 02:15 PROCEDURE, [place] mcg/mL-0.1 00 :50 Starting Medic al % (PF) in on Fri Branch NS 200 mL 04/01/22 epidural at 1432, infusion Until Fri RTU 04/01/22 at 2014, Routine, Intra-op PIB 2021-05- No Epidural, Univers fentaNYL-ro 06-01 ONCE INTRA i ty of pivacaine 2 20:32: 02:15 PROCEDURE, [place] mcg/mL-0.1 00 :50 Starting Medic al % (PF) in on Fri Branch NS 200 mL 04/01/22 epidural at 1432, infusion Until Mon RTU 04/01/22 at 2014, Routine, Intra-op PIB 2021-05- No Epidural, Univers fentaNYL-ro 06-01 ONCE INTRA i ty of pivacaine 2 20:32: 02:15 PROCEDURE, [place] mcg/mL-0.1 00 :50 Starting Medic al % (PF) in on Fri Branch NS 200 mL 04/01/22 epidural at 1432, infusion Until Fri RTU 04/01/22 at 2014, Routine, Intra-op PIB 2021-05- No Epidural, Univers fentaNYL-ro 06-01 ONCE INTRA i ty of pivacaine 2 20:32: 02:15 PROCEDURE, [place] mcg/mL-0.1 00 :50 Starting Medic al % (PF) in on Fri Branch NS 200 mL 04/01/22 epidural at 1432, infusion Until Fri RTU 04/01/22 at 2014, Routine, Intra-op PIB 2021-05- No Epidural, Univers fentaNYL-ro 06-01 ONCE INTRA i ty of pivacaine 2 20:32: 02:15 PROCEDURE, [place] mcg/mL-0.1 00 :50 Starting Medic al % (PF) in on Fri Branch NS 200 mL 04/01/22 epidural at 1432, infusion Until Fri RTU 04/01/22 at 2014, Routine, Intra-op PIB 2021-05- No Epidural, Univers fentaNYL-ro 06-01 ONCE INTRA i ty of pivacaine 2 20:32: 02:15 PROCEDURE, [place] mcg/mL-0.1 00 :50 Starting Medic al % (PF) in on Fri Branch NS 200 mL 04/01/22 epidural at 1432, infusion Until Fri RTU 04/01/22 at 2015, Routine, Intra-op lidocaine-e 2021-05- No Intravenou Univers pinephrine 06-01 s, ONCE ity o f (XYLOCAINE 20:28: 02:15 INTRA [place] W/EPINEPHRI 00 :50 PROCEDURE, Me dical NE) 2 Starting Branch %-1:200,000 on Fri injection 04/01/22 at 1428, Until 04/01/22 at 2015, Routine, Intra-op lidocaine-e 2021-05- No Intravenou Univers pinephrine 06-01 s, ONCE ity o f (XYLOCAINE 20:28: 02:15 INTRA [place] W/EPINEPHRI 00 :50 PROCEDURE, Me dical NE) 2 Starting Branch %-1:200,000 on Fri injection 04/01/22 at 1428, Until Mon04/01/22 at 2014, Routine, Intra-op lidocaine-e 2021-05- No Intravenou Univers pinephrine 06-01 s, ONCE ity o f (XYLOCAINE 20:28: 02:15 INTRA [place] W/EPINEPHRI 00 :50 PROCEDURE, Me dical NE) 2 Starting Branch %-1:200,000 on Fri injection 04/01/22 at 1428, Until Mon04/01/22 at 2015, Routine, Intra-op lidocaine 2021-05- No Infiltrati U nivers 1% 06-01 on, ONCE ity of (XYLOCAINE) 20:14: 02:15 INTRA [place] 100 mg/10 00 :50 PROCEDURE, Medi fito mL (1 %) Starting Branch injection on 04/01/22 at 1414, Until Mon04/01/22 at 2015, Routine, Intra-op lidocaine 2021-05- No Infiltrati U nivers 1% 06-01 on, ONCE ity of (XYLOCAINE) 20:14: 02:15 INTRA [place] 100 mg/10 00 :50 PROCEDURE, Medi fito mL (1 %) Starting Branch injection on 04/01/22 at 1414, Until Mon04/01/22 at 2015, Routine, Intra-op lidocaine 2021-05- No Infiltrati U nivers 1% 06-01 on, ONCE ity of (XYLOCAINE) 20:14: 02:15 INTRA [place] 100 mg/10 00 :50 PROCEDURE, Medi fito mL (1 %) Starting Branch injection on Mon04/01/22 at 1414, Until Mon04/01/22 at 2015, Routine, Intra-op loperamide 2021-05- No 2mg 2 mg, Unive rs (IMODIUM 06-01 Oral, ity of A-D) 15:46: 02:27 Q4HPRN, [place] capsule 2 33 :56 Starting Medica l mg on Mon Branch 04/01/22 at 0946, Until Mon04/01/22 at 2026, Routine, Diarrhea misoprostol 2021-05- No 25ug 25 mcg, Un carla (CYTOTEC) 06-01 Oral, ity of quarter-tab 06:15: 06:58 ONCE, 1 [place] 25 mcg 00 :00 dose, On Medic al Fri Branch 04/01/22 at 0015, Routine ondansetron 2021-05- No 4mg 4 mg, Slow Univers (ZOFRAN 06-01 IV Push, ity of (PF)) 06:08: 02:27 Q6HPRN, [place] injection 4 39 :56 Starting Medi fito mg on Mon Branch 04/01/22 at 0008, Until Mon04/01/22 at 2026, Routine, Nausea and Vomiting (N/V) terbutaline 2021-05- No .25mg 0.25 mg, Univers (BRETHINE) 06-01 Subcutaneo it y of injection 06:08: 02:27 , Q15MIN [place] 0.25 mg 39 :56 PRN, 4 Medical doses, Branch Starting on Mon04/01/22 at 0008, Until Mon04/01/22 at 2026, Routine, Tachysysto le with NRFHT misoprostol 2021-05- No 25ug 25 mcg, Un carla (CYTOTEC) 06-01 Vaginal, ity o f quarter-tab 06:08: 02:27 Q4HPRN, 4 [place] let 25 mcg 39 :56 doses, Medical Starting Branch on Mon04/01/22 at 0008, Until Mon04/01/22 at 2026, Routine, Cervical ripening oxytocin 2021-05- No 2mU/min at 2-40 Un carla (PITOCIN) 06-01 11-12 mL/hr, IV ity of 30 units in 06:08: 02:27 Infusion, [place] NS 500 mL 39 :56 TITRATE, Medica l IV infusion Starting Bran ch on Mon04/01/22 at 0008, Until Mon04/01/22 at 2026, Routine lactated 2021-05- No 500mL at 999 Unive rs ringers IV 06-01 1112 mL/hr, 500 it y of infusion 06:08: 02:27 mL, IV [place] 500 mL 39 :56 Infusion, Medical PRN - SEE Branch INSTRUCTIO NS, Starting on Mon04/01/22 at 0008, Until Mon04/01/22 at 2026, Routine [id number] IV 2021-05- No 1000mL at 1-125 U nivers infusion 06-0112 mL/hr, IV ity o f 1,000 mL 06:08: 02:27 Infusion, [place] 39 :56 TITRATE, Medical Starting Branch on Mon04/01/22 at 0008, Until Mon04/01/22 at 2026, Routine ondansetron 2021-05- No 4mg 4 mg, Slow Univers (ZOFRAN 06-01 IV Push, ity of (PF)) 06:08: 02:27 Q6HPRN, [place] injection 4 39 :56 Starting Medi fito mg on Fri Branch 04/01/22 at 0008, Until Mon04/01/22 at 2026, Routine, Nausea and Vomiting (N/V) ondansetron 2021-05- No 4mg 4 mg, Slow Univers (ZOFRAN 06-01 IV Push, ity of (PF)) 06:08: 02:27 Q6HPRN, [place] injection 4 39 :56 Starting Medi fito mg on Fri Branch 04/01/22 at 0008, Until Mon04/01/22 at 2026, Routine, Nausea and Vomiting (N/V) sodium 2022-1 2022- No 30mL 30 mL, Univers citrate-cit -04-01 Oral, ity of mirlande acid 06:08: 19:37 PRE-PROCED [place] (BICITRA) 39 :00 URE ONCE, Medic al 500-334 1 dose, Branch mg/5 mL Starting solution 30 on Fri mL 04/01/22 at 0008, Until Discontinu ed, Routine, Surgery/Pr ocedure PNV 2021-05 Yes Take by Univers no.95/pawel 06-01 mouth. ity of us 00:02: [place] fum/folic 21 Medical [facility] ( ORAL) levothyroxi Yes [id number] TAKE 1 Univers ne 75 mcg 8-25 TABLET BY ity o f tablet 00:00: MOUTH [place] 00 EVERY DAY Medical IN THE [place] MORNING ON EMPTY STOMACH FOR 90 DAYS levothyroxi Yes [id number] TAKE 1 Univers ne 75 mcg 8-25 TABLET BY ity o f tablet 00:00: MOUTH [place] 00 EVERY DAY Medical IN THE [place] MORNING ON EMPTY STOMACH FOR 90 DAYS levothyroxi Yes [id number] TAKE 1 Univers ne 75 mcg 8-25 TABLET BY ity o f tablet 00:00: MOUTH [place] 00 EVERY DAY Medical IN THE [place] MORNING ON EMPTY STOMACH FOR 90 DAYS levothyroxi 0 Yes [id number] TAKE 1 Univers ne 75 mcg 8-25 TABLET BY ity o f tablet 00:00: MOUTH [place] 00 EVERY DAY Medical IN THE [place] MORNING ON EMPTY STOMACH FOR 90 DAYS levothyroxi 0 Yes [id number] TAKE 1 Univers ne 75 mcg 8-25 TABLET BY ity o f tablet 00:00: MOUTH [place] 00 EVERY DAY Medical IN THE [place] MORNING ON EMPTY STOMACH FOR 90 DAYS levothyroxi Yes [id number] TAKE 1 Univers ne 75 mcg 8-25 TABLET BY ity o f tablet 00:00: MOUTH [place] 00 EVERY DAY Medical IN THE [place] MORNING ON EMPTY STOMACH FOR 90 DAYS levothyroxi 0 Yes [id number] TAKE 1 Univers ne 75 mcg 8-25 TABLET BY ity o f tablet 00:00: MOUTH [place] 00 EVERY DAY Medical IN THE [place] MORNING ON EMPTY STOMACH FOR 90 DAYS levothyroxi 0 Yes [id number] TAKE 1 Univers ne 75 mcg 8-25 TABLET BY ity o f tablet 00:00: MOUTH [place] 00 EVERY DAY Medical IN THE [place] MORNING ON EMPTY STOMACH FOR 90 DAYS levothyroxi 2021-0 Yes [id number] TAKE 1 Univers ne 75 mcg 8-25 TABLET BY ity o f tablet 00:00: MOUTH [place] 00 EVERY DAY Medical IN THE [place] MORNING ON EMPTY STOMACH FOR 90 DAYS levothyroxi 2021-0 Yes [id number] TAKE 1 Univers ne 75 mcg 8-25 TABLET BY ity o f tablet 00:00: MOUTH [place] 00 EVERY DAY Medical IN THE [place] MORNING ON EMPTY STOMACH FOR 90 DAYS levothyroxi 2021-0 Yes [id number] TAKE 1 Univers ne 75 mcg 8-25 TABLET BY ity o f tablet 00:00: MOUTH [place] 00 EVERY DAY Medical IN THE [place] MORNING ON EMPTY STOMACH FOR 90 DAYS levothyroxi 2021-0 Yes [id number] TAKE 1 Univers ne 75 mcg 8-25 TABLET BY ity o f tablet 00:00: MOUTH [place] 00 EVERY DAY Medical IN THE [facility] ON EMPTY STOMACH FOR 90 DAYS levothyroxi 0 Yes [id number] TAKE 1 Univers ne 75 mcg 8-25 TABLET BY ity o f tablet 00:00: MOUTH [place] 00 EVERY DAY Medical IN THE [place] MORNING ON EMPTY STOMACH FOR 90 DAYS levothyroxi 2021-0 Yes [id number] TAKE 1 Univers ne 75 mcg 8-25 TABLET BY ity o f tablet 00:00: MOUTH [place] 00 EVERY DAY Medical IN THE [place] MORNING ON EMPTY STOMACH FOR 90 DAYS levothyroxi 2021-0 Yes [id number] TAKE 1 Univers ne 75 mcg 8-25 TABLET BY ity o f tablet 00:00: MOUTH [place] 00 EVERY DAY Medical IN THE [facility] ON EMPTY STOMACH FOR 90 DAYS levothyroxi 2021-0 Yes [id number] TAKE 1 Univers ne 75 mcg 8-25 TABLET BY ity o f tablet 00:00: MOUTH [place] 00 EVERY DAY Medical IN THE [place] MORNING ON EMPTY STOMACH FOR 90 DAYS levothyroxi 2021-0 Yes [id number] TAKE 1 Univers ne 75 mcg 8-25 TABLET BY ity o f tablet 00:00: MOUTH [place] 00 EVERY DAY Medical IN THE [place] MORNING ON EMPTY STOMACH FOR 90 DAYS levothyroxi 2021-0 Yes [id number] TAKE 1 Univers ne 75 mcg 8-25 TABLET BY ity o f tablet 00:00: MOUTH [place] 00 EVERY DAY Medical IN THE [place] MORNING ON EMPTY STOMACH FOR 90 DAYS levothyroxi Yes [id number] TAKE 1 Univers ne 75 mcg 8-25 TABLET BY ity o f tablet 00:00: MOUTH [place] 00 EVERY DAY Medical IN THE [place] MORNING ON EMPTY STOMACH FOR 90 DAYS levothyroxi Yes [id number] TAKE 1 Univers ne 75 mcg 8-25 TABLET BY ity o f tablet 00:00: MOUTH [place] 00 EVERY DAY Medical IN THE [place] MORNING ON EMPTY STOMACH FOR 90 DAYS levothyroxi 0 Yes [id number] TAKE 1 Univers ne 75 mcg 8-25 TABLET BY ity o f tablet 00:00: MOUTH [place] 00 EVERY DAY Medical IN THE [place] MORNING ON EMPTY STOMACH FOR 90 DAYS levothyroxi Yes [id number] TAKE 1 Univers ne 75 mcg 8-25 TABLET BY ity o f tablet 00:00: MOUTH [place] 00 EVERY DAY Medical IN THE [place] MORNING ON EMPTY STOMACH FOR 90 DAYS levothyroxi Yes [id number] TAKE 1 Univers ne 75 mcg 8-25 TABLET BY ity o f tablet 00:00: MOUTH [place] 00 EVERY DAY Medical IN THE [place] MORNING ON EMPTY STOMACH FOR 90 DAYS levothyroxi Yes [id number] TAKE 1 Univers ne 75 mcg 8-25 TABLET BY ity o f tablet 00:00: MOUTH [place] 00 EVERY DAY Medical IN THE [place] MORNING ON EMPTY STOMACH FOR 90 DAYS levothyroxi Yes [id number] TAKE 1 Univers ne 75 mcg 8-25 TABLET BY ity o f tablet 00:00: MOUTH [place] 00 EVERY DAY Medical IN THE [place] MORNING ON EMPTY STOMACH FOR 90 DAYS ergocalcife Yes TAKE 1 Univ ers rol, 4-04 CAPSULE BY ity of vitamin d2, 00:00: MOUTH ONCE [place] 1,250 mcg 00 A WEEK FOR Medi fito (50,000 90 DAYS Branch unit) capsule ergocalcife 0 2021- No TAKE 1 Uni vers rol, 4-04 08-26 CAPSULE BY ity of vitamin d2, 00:00: 00:00 MOUTH ONCE [place] 1,250 mcg 00 :00 A WEEK FOR Medi fito (50,000 90 DAYS Branch unit) capsule metformin Yes TAKE 1 Univer s ER 500 mg 3-29 TABLET BY ity o f 24 hr 00:00: MOUTH [place] tablet 00 TWICE A Medical DAY IN THE [place] EVENING FOR 90 DAYS metformin Yes TAKE 1 Univer s ER 500 mg 3-29 TABLET BY ity o f 24 hr 00:00: MOUTH [place] tablet 00 TWICE A Medical DAY IN THE [place] EVENING FOR 90 DAYS metformin 2021-0 Yes TAKE 1 Univer s ER 500 mg 3-29 TABLET BY ity o f 24 hr 00:00: MOUTH [place] tablet 00 TWICE A Medical DAY IN THE [place] EVENING FOR 90 DAYS metformin 2021-0 Yes TAKE 1 Univer s ER 500 mg 3-29 TABLET BY ity o f 24 hr 00:00: MOUTH [place] tablet 00 TWICE A Medical DAY IN THE [place] EVENING FOR 90 DAYS metformin 2021- Yes TAKE 1 Univer s ER 500 mg 3-29 TABLET BY ity o f 24 hr 00:00: MOUTH [place] tablet 00 TWICE A Medical DAY IN THE [place] EVENING FOR 90 DAYS metformin 2021- Yes TAKE 1 Univer s ER 500 mg 3-29 TABLET BY ity o f 24 hr 00:00: MOUTH [place] tablet 00 TWICE A Medical DAY IN THE [place] EVENING FOR 90 DAYS metformin 2021- Yes TAKE 1 Univer s ER 500 mg 3-29 TABLET BY ity o f 24 hr 00:00: MOUTH [place] tablet 00 TWICE A Medical DAY IN THE [place] EVENING FOR 90 DAYS metformin 2021- Yes TAKE 1 Univer s ER 500 mg 3-29 TABLET BY ity o f 24 hr 00:00: MOUTH [place] tablet 00 TWICE A Medical DAY IN THE [place] EVENING FOR 90 DAYS metformin 2021-0 Yes TAKE 1 Univer s ER 500 mg 3-29 TABLET BY ity o f 24 hr 00:00: MOUTH [place] tablet 00 TWICE A Medical DAY IN THE [place] EVENING FOR 90 DAYS metformin 2021-0 Yes TAKE 1 Univer s ER 500 mg 3-29 TABLET BY ity o f 24 hr 00:00: MOUTH [place] tablet 00 TWICE A Medical DAY IN THE [place] EVENING FOR 90 DAYS metformin 2021-0 Yes TAKE 1 Univer s ER 500 mg 3-29 TABLET BY ity o f 24 hr 00:00: MOUTH [place] tablet 00 TWICE A Medical DAY IN THE [place] EVENING FOR 90 DAYS metformin 2021-0 Yes TAKE 1 Univer s ER 500 mg 3-29 TABLET BY ity o f 24 hr 00:00: MOUTH [place] tablet 00 TWICE A Medical DAY IN THE [place] EVENING FOR 90 DAYS metformin 2021-0 Yes TAKE 1 Univer s ER 500 mg 3-29 TABLET BY ity o f 24 hr 00:00: MOUTH [place] tablet 00 TWICE A Medical DAY IN THE [place] EVENING FOR 90 DAYS metformin 2021-0 Yes TAKE 1 Univer s ER 500 mg 3-29 TABLET BY ity o f 24 hr 00:00: MOUTH [place] tablet 00 TWICE A Medical DAY IN THE [place] EVENING FOR 90 DAYS metformin 2021-0 Yes TAKE 1 Univer s ER 500 mg 3-29 TABLET BY ity o f 24 hr 00:00: MOUTH [place] tablet 00 TWICE A Medical DAY IN THE [place] EVENING FOR 90 DAYS metformin 2021-0 Yes TAKE 1 Univer s ER 500 mg 3-29 TABLET BY ity o f 24 hr 00:00: MOUTH [place] tablet 00 TWICE A Medical DAY IN THE [place] EVENING FOR 90 DAYS metformin 2021-0 Yes TAKE 1 Univer s ER 500 mg 3-29 TABLET BY ity o f 24 hr 00:00: MOUTH [place] tablet 00 TWICE A Medical DAY IN THE [place] EVENING FOR 90 DAYS metformin 2021-0 Yes TAKE 1 Univer s ER 500 mg 3-29 TABLET BY ity o f 24 hr 00:00: MOUTH [place] tablet 00 TWICE A Medical DAY IN THE [place] EVENING FOR 90 DAYS metformin 2021-0 Yes TAKE 1 Univer s ER 500 mg 3-29 TABLET BY ity o f 24 hr 00:00: MOUTH [place] tablet 00 TWICE A Medical DAY IN THE [place] EVENING FOR 90 DAYS metformin 2021-0 Yes TAKE 1 Univer s ER 500 mg 3-29 TABLET BY ity o f 24 hr 00:00: MOUTH [place] tablet 00 TWICE A Medical DAY IN THE [place] EVENING FOR 90 DAYS metformin 2021-0 Yes TAKE 1 Univer s ER 500 mg 3-29 TABLET BY ity o f 24 hr 00:00: MOUTH [place] tablet 00 TWICE A Medical DAY IN THE [place] EVENING FOR 90 DAYS metformin 2021-0 Yes TAKE 1 Univer s ER 500 mg 3-29 TABLET BY ity o f 24 hr 00:00: MOUTH [place] tablet 00 TWICE A Medical DAY IN THE [place] EVENING FOR 90 DAYS metformin 2021-0 Yes TAKE 1 Univer s ER 500 mg 3-29 TABLET BY ity o f 24 hr 00:00: MOUTH [place] tablet 00 TWICE A Medical DAY IN THE [place] EVENING FOR 90 DAYS metformin 2021-0 Yes TAKE 1 Univer s ER 500 mg 3-29 TABLET BY ity o f 24 hr 00:00: MOUTH [place] tablet 00 TWICE A Medical DAY IN THE [place] EVENING FOR 90 DAYS metformin 2021-0 Yes TAKE 1 Univer s ER 500 mg 3-29 TABLET BY ity o f 24 hr 00:00: MOUTH [place] tablet 00 TWICE A Medical DAY IN THE Branch EVENING FOR 90 DAYS PNV 2021-0 Yes Take by Univers no.95/pawel 3-28 mouth. ity of us 08:46: [place] fum/folic 55 Medical ac Branch ( ORAL) PNV 2021-0 Yes Take by Univers no.95/pawel 3-28 mouth. ity of us 08:46: [place] fum/folic 55 Medical ac Branch ( ORAL) PNV 2021-0 Yes Take by Univers no.95/pawel 3-28 mouth. ity of us 08:46: [place] fum/folic 55 Medical ac Branch ( ORAL) PNV 2021-0 Yes Take by Univers no.95/pawel 3-28 mouth. ity of 08:46: [place] fum/folic 55 Medical ac Branch ( ORAL) PNV 2021-0 Yes Take by Univers no.95/pawel 3-28 mouth. ity of us 08:46: [place] fum/folic 55 Medical ac Branch ( ORAL) PNV 2021-0 Yes Take by Univers no.95/pawel 3-28 mouth. ity of us 08:46: [place] fum/folic 55 Medical ac Branch ( ORAL) PNV 2021-0 Yes Take by Univers no.95/pawel 3-28 mouth. ity of us 08:46: [place] fum/folic 55 Medical ac Branch ( ORAL) PNV 202-0 Yes Take by Univers no.95/pawel 3-28 mouth. ity of us 08:46: [place] fum/folic 55 Medical ac Branch ( ORAL) PNV 202-0 Yes Take by Univers no.95/pawel 3-28 mouth. ity of us 08:46: [place] fum/folic 55 Medical ac Branch ( ORAL) PNV 2021-0 Yes Take by Univers no.95/pawel 3-28 mouth. ity of us 08:46: [place] fum/folic 55 Medical ac Branch ( ORAL) PNV 202-0 Yes Take by Univers no.95/pawel 3-28 mouth. ity of us 08:46: [place] fum/folic 55 Medical ac Branch ( ORAL) PNV 2021-0 Yes Take by Univers no.95/pawel 3-28 mouth. ity of us 08:46: [place] fum/folic 55 [facility] ( ORAL) PNV Yes Take by [place] [facility] no.95/pawel 3-28 mouth. ity of us 08:46: [place] fum/folic 55 [facility] ( ORAL) levothyroxi 2- No TAKE 1 Uni vers ne 75 mcg 05-23 TABLET BY ity of tablet 00:00: 00:00 MOUTH [place] 00 :00 EVERY DAY Medical IN THE Branch MORNING ON EMPTY STOMACH FOR 90 DAYS Vital Signs Vital Name Observation Time Observation Value Comments Source Systolic blood 2022-05-11 19:04:00 108 mm[Hg] [facility] Diastolic blood 2022-05-11 19:04:00 69 mm[Hg] [facility] Heart rate 2022-05-11 19:04:00 87 /min [facility] Body temperature 2022-05-11 19:04:00 36.83 Terrie [facility] Respiratory rate 2022-05-11 19:04:00 16 /min [facility] Body height 2022-05-11 19:04:00 157.5 cm [facility] Body weight 2022-05-11 19:04:00 96.979 kg [facility] BMI 2022-05-11 19:04:00 39.10 kg/m2 [facility] Oxygen saturation in 2022-05-11 19:04:00 97 /min [facility] Arterial blood by [facility] [place] [facility] Pulse oximetry Branch Systolic blood 2022-04-20 21:48:00 117 mm[Hg] [facility] Diastolic blood 2022-04-20 21:48:00 80 mm[Hg] [facility] Heart rate 2022-04-20 21:48:00 65 /min [facility] ty [facility] Body temperature 2022-04-20 21:48:00 36.67 Terrie [facility]22-04-20 21:48:00 16 /min [facility] height 2022-04-20 21:48:00 157.5 cm [facility] [place] [facility] Body weight 2022-04-20 21:48:00 95.074 kg [facility] [place] [facility] BMI 2022-04-20 21:48:00 38.34 kg/m2 [facility] [place] [facility] Oxygen saturation in 2022-04-20 21:48:00 96 /min [facility] of Arterial blood by [facility] [place] [facility] Pulse oximetry Branch Systolic blood 2022-04-08 14:56:00 127 mm[Hg] Univer sity of [facility] [place] [facility] Diastolic blood 2022-04-08 14:56:00 85 mm[Hg] Unive rsity of [facility] [place] [facility] Heart rate 2022-04-08 14:56:00 70 /min [facility] [place] [facility] Body temperature 2022-04-08 14:56:00 36.56 Terrie [facility] [place] [facility] Body height 2022-04-08 14:56:00 157.5 cm [facility] [place] [facility] Body weight 2022-04-08 14:56:00 99.61 kg [facility] [place] [facility] BMI 2022-04-08 14:56:00 40.17 kg/m2 [facility] [place] [facility] Systolic blood 2022-04-03 13:45:00 130 mm[Hg] Univer sity of [facility] [place] [facility] Diastolic blood 2022-04-03 13:45:00 77 mm[Hg] Unive rsity of [facility] [place] [facility] Heart rate 2022-04-03 13:43:00 93 /min [facility] [place] [facility] Body temperature 2022-04-03 13:43:00 36.94 Terrie [facility] [place] [facility] Respiratory rate 2022-04-03 13:43:00 16 /min [facility] [place] [facility] Oxygen saturation in 2022-04-03 13:43:00 100 /min University of Arterial blood by [facility] [place] [facility] Pulse oximetry Branch Body height 2022-04-01 06:15:00 157.5 cm [facility] [place] [facility] Body weight 2022-04-01 06:15:00 105.597 kg [facility] [place] [facility] BMI 2022-04-01 06:15:00 42.58 kg/m2 [facility] [place] [facility] Systolic blood 2022-04-03 13:45:00 130 mm[Hg] Univer sity of [facility] [place] [facility] Diastolic blood 2022-04-03 13:45:00 77 mm[Hg] Unive rsity of [facility] [place] [facility] Heart rate 2022-04-03 13:43:00 93 /min [facility] [place] [facility] [place] Body temperature 2022-04-03 13:43:00 36.94 Terrie Univ ers[facility] Respiratory rate 2022-04-03 13:43:00 16 /min [facility] Oxygen saturation in 2022-04-03 13:43:00 100 /min [facility] Ar[facility]ial blood by [facility] [place] [facility] Pulse oximetry Branch Body height 2022-04-01 06:15:00 157.5 cm [facility] [place] [facility] [place] Body weight 2022-04-01 06:15:00 105.597 kg [facility] [place] [facility] [place] BMI 2022-04-01 06:15:00 42.58 kg/m2 [facility] [place] [facility] [place] Respiratory rate 2022-04-02 02:05:00 21 /min [facility] [place] [facility] Systolic blood 2022-03-30 15:59:00 127 mm[Hg] Univer [facility]ity of [facility] [place] [facility] Diastolic blood 2022-03-30 15:59:00 83 mm[Hg] Unive rsity of [facility] [place] [facility] Heart rate 2022-03-30 15:59:00 72 /min [facility] [place] Body temperature 2022-03-30 15:59:00 36.67 Terrie [facility] Respiratory rate 2022-03-30 15:59:00 18 /min [facility] Body height 2022-03-30 15:59:00 157.5 cm [facility] Body weight 2022-03-30 15:59:00 106.595 kg [facility] BMI 2022-03-30 15:59:00 42.98 kg/m2 [facility] Systolic blood 2022-03-23 15:20:00 125 mm[Hg] [facility] Diastolic blood 2022-03-23 15:20:00 85 mm[Hg] [facility] Heart rate 2022-03-23 15:20:00 90 /min [facility] Body temperature 2022-03-23 15:20:00 36.44 Terrie [facility] Body height 2022-03-23 15:20:00 157.5 cm [facility] Body weight 2022-03-23 15:20:00 105.96 kg [facility] BMI 2022-03-23 15:20:00 42.73 kg/m2 [facility] Systolic blood 2022-03-16 15:52:00 131 mm[Hg] [facility] Diastolic blood 2022-03-16 15:52:00 82 mm[Hg] [facility] Heart rate 2022-03-16 15:52:00 69 /min [facility] Body temperature 2022-03-16 15:52:00 36.56 Terrie [facility] Respiratory rate 2022-03-16 15:52:00 18 /min [facility] Body height 2022-03-16 15:52:00 157.5 cm [facility] Body weight 2022-03-16 15:52:00 105.688 kg [facility] BMI 2022-03-16 15:52:00 42.62 kg/m2 [facility] Systolic blood 2022-03-09 16:55:00 119 mm[Hg] [facility] Diastolic blood 2022-03-09 16:55:00 80 mm[Hg] [facility] Heart rate 2022-03-09 16:55:00 74 /min [facility] Body temperature 2022-03-09 16:55:00 36.67 Terrie [facility] Respiratory rate 2022-03-09 16:55:00 16 /min [facility] Body height 2022-03-09 16:55:00 157.5 cm [facility] Body weight 2022-03-09 16:55:00 102.604 kg [facility] BMI 2022-03-09 16:55:00 41.37 kg/m2 [facility] Oxygen saturation in 2022-03-09 16:55:00 100 /min [facility] Arterial blood by [place] [employer] Pulse oximetry Branch Systolic blood 2022-02-23 19:26:00 116 mm[Hg] [facility] [place] [facility] Diastolic blood 2022-02-23 19:26:00 78 mm[Hg] [facility] Heart rate 2022-02-23 19:26:00 89 /min [facility] Body temperature 2022-02-23 19:26:00 36.78 Terrie [facility] Respiratory rate 2022-02-23 19:26:00 18 /min [facility] Body height 2022-02-23 19:26:00 157.5 cm [facility] Body weight 2022-02-23 19:26:00 102.059 kg [facility] BMI 2022-02-23 19:26:00 41.15 kg/m2 [facility] Systolic blood 2022-02-09 16:04:00 115 mm[Hg] [facility] [place] [facility] Diastolic blood 2022-02-09 16:04:00 78 mm[Hg] [facility] [place] [facility] Heart rate 2022-02-09 16:04:00 85 /min [facility] [place] [facility] Respiratory rate 2022-02-09 16:04:00 19 /min [facility] Body height 2022-02-09 16:04:00 157.5 cm [facility] Body weight 2022-02-09 16:04:00 101.606 kg [facility] BMI 2022-02-09 16:04:00 40.97 kg/m2 [facility] Oxygen saturation in 2022-02-09 16:04:00 98 /min [facility] blood by [place] [employer] Pulse [facility]xim[facility] Systolic blood 2022-01-27 15:21:00 119 mm[Hg] [facility] Diastolic blood 2022-01-27 15:21:00 78 mm[Hg] [facility] Heart rate 2022-01-27 15:21:00 90 /min [facility] Body temperature 2022-01-27 15:21:00 36.72 Terrie [facility] Respiratory rate 2022-01-27 15:21:00 18 /min [facility] Body height 2022-01-27 15:21:00 157.5 cm [facility] Body weight 2022-01-27 15:21:00 100.699 kg [facility] BMI 2022-01-27 15:21:00 40.60 kg/m2 [facility] Systolic blood 2022-01-13 19:14:00 115 mm[Hg] [facility] [place] [facility] Diastolic blood 2022-01-13 19:14:00 74 mm[Hg] [facility] Heart rate 2022-01-13 19:14:00 77 /min [facility] Body temperature 2022-01-13 19:14:00 36.94 Terrie [facility] Respiratory rate 2022-01-13 19:14:00 16 /min [facility] Body height 2022-01-13 19:14:00 156.2 cm [facility] Body weight 2022-01-13 19:14:00 100.245 kg [facility] BMI 2022-01-13 19:14:00 41.08 kg/m2 [facility] Oxygen saturation in 2022-01-13 19:14:00 100 /min [facility] Arterial blood by [facility] Pulse oximetry Branch Systolic blood 2022-01-13 16:10:00 115 mm[Hg] [facility] Diastolic blood 2022-01-13 16:10:00 78 mm[Hg] [facility] Heart rate 2022-01-13 16:10:00 80 /min [facility] Body temperature 2022-01-13 16:10:00 36.78 Terrie [facility] Respiratory rate 2022-01-13 16:10:00 18 /min [facility] Body height 2022-01-13 16:10:00 156.2 cm [facility] Body weight 2022-01-13 16:10:00 100.245 kg [facility] BMI 2022-01-13 16:10:00 41.08 kg/m2 [facility] Procedures Procedure Date / Time Performing Clinician Source Performed CBC (INCLUDES 2022-05-10 17:44:00 Tootie Wells [facility] DIFF/PLT)-Q Medical Branch HB -MATERNAL 2022-04-02 09:56:00 Adum, Niecy Melgoza [facility] HEMORRHAGE SCREEN [facility] HB -MATERNAL 2022-04-02 09:56:00 Adum, Niecy Rhona [facility] HEMORRHAGE SCREEN [facility] CBC WITH DIFF 2022-04-02 09:55:00 Adum, [facility] CBC WITH DIFF 2022-04-02 09:55:00 Adum, [place] Rhona [facility] CENTRAL NEURAXIAL BLOCK 2022-04-01 20:59:27 Sonya Gusman [facility] ABORH CONFIRMATION (LAB 2022-04-01 08:27:00 Adum, Niecy Rhona [facility] ONLY) Medical Branch ABORH CONFIRMATION (LAB 2022-04-01 08:27:00 Adum, [facility] ONLY) Medical Branch CBC WITH DIFF 2022-04-01 06:39:00 Adum, Niecy Melgoza [facility] HEPATITIS B SURFACE 2022-04-01 06:39:00 Adum, Niecy Melgoza [facility] ANTIGEN [facility] ADC OR MIRIAN ONLY - 2022-04-01 06:39:00 Adum, Niecy Melgoza [facility] HIV 1/2 AG-AB WITH 2022-04-01 06:39:00 Adum, Niecy Melgoza [facility] REFLEX [facility] CBC WITH DIFF 2022-04-01 06:39:00 Adum, [place] Rhona [facility] HEPATITIS B SURFACE 2022-04-01 06:39:00 Adum, Niecy Mlegoza [facility] ANTIGEN [facility] ADC OR MIRIAN ONLY - 2022-04-01 06:39:00 Adum, [facility] HIV 1/2 AG-AB WITH 2022-04-01 06:39:00 Adum, Niecy Melgoza [facility] REFLEX [facility] Branch HB ABO GROUPING 2022-04-01 06:15:00 Adum, Niecy Rhona [facility] RHO (D) IMMUNE GLOBULIN 2022-04-01 06:15:00 Adum, Niecy Melgoza [facility] HB ABO GROUPING 2022-04-01 06:15:00 Adum, Niecy Rhona [facility] RHO (D) IMMUNE GLOBULIN 2022-04-01 06:15:00 Adum, Niecy Melgoza [facility] HOSPITAL ADMISSION 2022-04-01 06:01:00 Doctor Unassigned, No [facility] 2022-03-30 16:39:32 Adum, Niecy Melgoza [facility] POCT URINALYSIS W/O 2022-03-30 00:00:00 Adum, Niecy Melgoza [facility] ASSIGNMENT OF BENEFITS 2022-03-25 13:58:42 Doctor Unassigned, No [facility] POCT URINALYSIS W/O 2022-03-23 00:00:00 Adum, Niecy Melgoza [facility] POCT URINALYSIS W/O 2022-03-16 00:00:00 Adum, Niecy Melgoza [facility] POCT URINALYSIS W/O 2022-03-09 00:00:00 Tootie Wells [facility] CBC (H/H, RBC, 2022-03-07 15:04:00 Adum, [facility] INDICES,$WBC, PLT)-Q Medical [facility] FLU VACC ([id number]), 6 2022-02-23 20:26:07 Adum, Niecy Rhona [facility] MO-64 YRS, .5ML, IM, Medical [facility] QUAD (FLUCELVAX) POCT URINALYSIS W/O 2022-02-23 00:00:00 Adum, Niecy Melgoza [facility] POCT URINALYSIS W/O 2022-02-09 16:06:00 Tootie Wells [facility] POCT URINALYSIS W/O 2022-01-27 00:00:00 Nicolette Glorian [facility] ABO GROUP AND RH TYPE-Q 2022-01-13 18:37:00 Faizan [facility] TDAP VACCINE, >11 YRS, 2022-01-13 16:12:18 Faizan Anirudh [facility] POCT URINALYSIS W/O 2022-01-13 00:00:00 Faizan Anirudh [facility] SECTION Adum, Niecy Melgoza [facility] Encounters Start End Encounter Admission Attending Care Care Encounter Source Date/Time Date/Time Type Type Clinicians Facility Department ID 2022-05-11 2022-05-11 Outpatient R ADUM, [facility] [id number] Univers 13:00:00 13:27:43 NIECY renae [facility] 2022-05-11 2022-05-11 Routine Adum, [facility] 1.2.317.489 [id number] Univers 13:00:00 13:27:43 Niecy HOUGH 350.1.13.10 ity of [place] [id number] [facility] 134 Branch 2022-05-10 2022-05-10 Orders MCKENZIE Wells 1.2.840.114 [id number] Univers 00:00:00 00:00:00 Only Tootie PATEL 350.1.13.10 it y of HOSPITAL 4.2.7.2.686 [place] [id number] [facility] 009 Branch 2022-05-09 2022-05-09 [facility] 1.2.840.114 [id number] Univers 00:00:00 00:00:00 Niecy HOUGH 350.1.13.10 i [place] [facility] [id number] [facility] 134 Branch 2022-04-20 2022-04-20 Outpatient R AD, [facility] [id number] Univers 15:00:00 16:19:32 NIECY itcarley [facility] 2022-04-20 2022-04-20 Routine Ad, [facility] 1.2.963.069 [id number] Univers 15:00:00 16:19:32 Niecy HOUGH 350.1.13.10 ity of Visit WOMEN'S 4.2.7.2.686 [facility] [id number] [address] 2022-04-08 2022-04-08 [facility] 1.2.840.114 [id number] Univers 09:00:00 09:14:49 Visit Tootie FRANCE 350.1.13.10 it y of WOMEN'S 4.2.7.2.686 [facility] [id number] [address] 2022-04-08 2022-04-08 Outpatient R TOOTIE WELLS [facility] B [id number] Univers 09:00:00 09:00:00 TOOTIE WELLS [facility] 2022-04-01 2022-04-03 Inpatient P [facility] SAMEERA [id number] Univers 00:02:00 12:40:00 NIECY renae [facility] 2022-04-01 2022-04-03 Hospital [facility] 1.2.840.114 [id number] Univers 00:02:00 12:40:00 Encounter Niecy HINTON 350.1.13.10 ity of [facility] 4.2.7.2.686 [facility] [id number] [facility] 083 Branch 2022-04-01 2022-04-03 Surgery [facility] 1.2.840.114 [id number] Univers 00:00:00 00:00:00 Niecy HINTON 350.1.13.10 ity of [facility] 4.2.7.2.686 [facility] [id number] [facility] 013 Branch 2022-04-02 2022-04-02 Anesthesia [facility] 1.2.840.114 [id number] Univers 20:03:11 20:03:11 Event Zach HINTON 350.1.13.10 i ty of [place] 4.2.7.2.686 [facility] [id number] [facility] 083 Branch 2022-04-01 2022-04-01 Anesthesia Sonya Gusman [facility] 1.2.840.1 [id number] Univers 14:09:00 20:15:00 Event Karina Ochoa 350.1.13.10 ity of [facility] 4.2.7.2.686 [facility] [id number] [facility] 013 Branch 2022-04-01 2022-04-01 Orders Doctor MCKENZIE 1.2.840.114 [id number] Univers 00:00:00 00:00:00 Only Unassigned, AMANDA 350.1.13.10 ity of [place] [facility] 4.2.7.2.686 [place] as [id number] [facility] 009 [place] 2022-03-30 2022-03-30 [facility] [id number] Univers 10:00:00 10:41:22 NIECY ity [facility] 2022-03-30 2022-03-30 [facility] 1.2.124.962 [id number] Univers 10:00:00 10:41:22 Niecy Rhona HOUGH 350.1.13.10 ity of Visit WOMEN'S 4.2.7.2.686 [facility] [id number] [facility] 134 Branch 2022-03-25 2022-03-25 Orders Doctor MCKENZIE 1.2.840.114 [id number] Univers 00:00:00 00:00:00 Only Unassigned, AMANDA 350.1.13.10 ity of [place] [facility] 4.2.7.2.686 [place] as [id number] [facility] 009 [place] 2022-03-23 2022-03-23 Outpatient R ADUM, [facility] [id number] Univers 10:15:00 10:48:56 NIECY ity [facility] 2022-03-23 2022-03-23 Routine Ad, [facility] 1.2.971.472 [id number] Univers 10:15:00 10:48:56 Niecy HOUGH 350.1.13.10 it[place] [id number] [address] 2022-03-16 2022-03-16 Outpatient R ADUM, [facility] [id number] Univers 10:45:00 11:17:34 NIECY ity [facility] 2022-03-16 2022-03-16 [facility] 1.2.825.533 [id number] Univers 10:45:00 11:17:34 Niecy HOUGH 350.1.13.10 ity of [place] [id number] [address] 2022-03-09 2022-03-09 [facility] [id number] Univers 11:15:00 12:14:12 NIECY maiy [facility] 2022-03-09 2022-03-09 [facility] 1.2.867.484 [id number] Univers 11:15:00 12:14:12 Niecy HOUGH 350.1.13.10 ity [place] [id number] [address] 2022-03-07 2022-03-07 Orders AdMCKENZIE cowan 1.2.840.114 [id number] Univers 00:00:00 00:00:00 Only Niecy Melgoza AMANDA 350.1.13.10 i ty [facility] 4.2.7.2.686 [place] [id number] [address] 2022-02-23 2022-02-23 Outpatient R ADUM, [facility] [id number] Univers 14:30:00 15:21:09 NIECY renae [facility] 2022-02-23 2022-02-23 [facility] 1.2.044.735 [id number] Univers 14:30:00 15:21:09 Niecy Melgoza [place] 350.1.13.10 ity [place] [id number] [address] 2022-02-21 2022-02-21 Telephone FLORECITA Wells 1.2.840.11 [id number] Univers 00:00:00 00:00:00 Tootie HOUGH 350.1.13.10 it [place] [id number] [address] 2022-02-09 2022-02-09 Outpatient R PUSHPA [facility] [id number] Univers 11:15:00 11:21:33 NIECY ity of [facility] 2022-02-09 2022-02-09 Routine Tootie Wells [facility] 1.2. 840.114 [id number] Univers 11:15:00 11:21:33 Adum Niecy Melgoza [place] 350.1.13.10 ity [place] [id number] [address] 2022-01-27 2022-01-27 Outpatient R NICOLETTE GLORIAN [facility] [id number] Univers 10:00:00 10:47:55 ity of [facility] 2022-01-27 2022-01-27 Routine Anirudh Gloria [facility] 1.2.840.114 [id number] Univers 10:00:00 10:47:55 [place] 350.1.13.10 i ty of [place] [id number] [address] 2022-01-13 2022-01-13 Nurse Nurse, [facility] 1.2.840.114 [id number] Univers 15:00:00 15:00:00 Visit Anirudh Gloria 350.1.13.10 ity of [place] [id number] [address] 2022-01-13 2022-01-13 Outpatient R ANIRUDH GLORIA [facility] [id number] Univers 15:00:00 14:13:55 ity of [facility] 2022-01-13 2022-01-13 Outpatient R NAIRUDH GLORIA [facility] [id number] Univers 10:45:00 11:47:50 ity of [facility] 2022-01-13 2022-01-13 Routine Anirudh Gloria ORJOSE RAFAEL [facility] 1.2.840.114 [id number] Univers 10:45:00 11:47:50 [place] 350.1.13.10 i ty of [place] [id number] [address] 2022-01-13 2022-01-13 Orders Anirudh Gloria 1.2.840.114 [id number] Univers 00:00:00 00:00:00 Only AMANDA 350.1.13.10 it y of [facility] 4.2.7.2.686 [place] [id number] [address] 2022-01-11 2022-01-11 Speaking Unit Assembler Ultrasound, [facility] 1.2 .840.114 [id number] Univers 10:45:00 11:30:00 Visit Sweeney Deepak Angel 350.1 .13.10 ity [facility] 4.2.7.2.[place] [id number] Vt dical [address] 2022-01-11 2022-01-11 Outpatient P ELLE [facility] [id number] Univers 10:45:00 10:45:00 MICHAEL it y of [facility] 2021-12-24 2021-12-24 Orders Anirudh Gloria 1.2.840.114 [id number] Univers 00:00:00 00:00:00 Only AMANDA 350.1.13.10 it y of HOSPITAL 4.2.7.2.686 [place] [id number] [address] 2021-12-16 2021-12-16 Outpatient R ANIRUDH GLORIA [facility] [id number] Univers 10:00:00 11:22:31 ity of [facility] 2021-12-16 2021-12-16 Routine Anirudh Gloria [facility] JOSE MARIA 1.2.840.114 [id number] Univers 10:00:00 11:22:31 [place] 350.1.13.10 i ty of [place] [id number] [address] 2021-12-16 2021-12-16 Outpatient R ANIRUDH GLORIA [facility] [id number] Univers 10:00:00 10:00:00 ity [facility] 2021-12-16 2021-12-16 Letter Anirudh Gloria [facility] 1.2.840.114 [id number] Univers 00:00:00 00:00:00 (Out) [place] 350.1.13.10 it y [place] [id number] [address] 2021-12-16 2021-12-16 Telephone Anirudh Gloria [facility] 1.2.840.11 [id number] Univers 00:00:00 00:00:00 [place] 350.1.13.10 it y of [place] [id number] [address] 2021-11-18 2021-11-18 Speaking Unit Assembler [facility] 1.2 .840.114 [id number] Univers 14:45:00 16:00:00 Visit Carla Traylor DESKTOP ENGINEER 350.1.13.10 ity of REGIONAL 4.2.7.2.686 [place] as MATERNAL [id number] [facility] ical & CHILD [address] [place] [address] 2021-11-18 2021-11-18 Outpatient P KYMBERLY [facility] [id number] Univers 14:45:00 14:45:00 CARLA renae [facility] 2021-11-18 2021-11-18 Telephone Anirudh Gloria [facility] 1.2.840.11 [id number] Univers 00:00:00 00:00:00 [place] 350.1.13.10 it [place].2.[place] [facility] [id number] [address] 2021-11-17 2021-11-17 Routine Sulma [facility] 1.2.840.114 [id number] Univers 16:30:00 17:05:03 Tootie HOUGH 350.1.13.10 i ty of [place] [id number] [address] 2021-11-17 2021-11-17 Outpatient R TOOTIE WELLS [facility] B [id number] Univers 16:30:00 17:05:03 MARINETOOTIE RAMIREZ [facility] 2021-11-17 2021-11-17 Outpatient R TOOTIE WELLS [facility] B [id number] Univers 16:30:00 16:30:00 [facility] carley [facility] 2021-11-17 2021-11-17 Letter Sulma [facility] 1.2.840.114 [id number] Univers 00:00:00 00:00:00 (Out) Tootie HOUGH 350.1.13.10 it y [place] [id number] [address] 2021-11-10 2021-11-10 Outpatient R TOOTIE WELLS [facility] B [id number] Univers 14:00:00 14:00:00 [facility] 2021-10-19 2021-10-19 Outpatient R ANIRUDH GLORIA [facility] [id number] Univers 10:15:00 10:15:00 ity [facility] 2021-10-19 2021-10-19 Orders Anirudh Gloria 1.2.840.114 [id number] Univers 00:00:00 00:00:00 Only AMANDA 350.1.13.10 it y of HOSPITAL 4.2.7.2.686 [place] [id number] [address] 2021-10-14 2021-10-14 Routine Anirudh Gloria [facility] 1.2.840.114 [id number] Univers 08:15:00 08:56:30 [place] 350.1.13.10 i ty of [place] [id number] [address] 2021-10-14 2021-10-14 Outpatient R ANIRUDH GLORIA [facility] [id number] Univers 08:15:00 08:56:30 ity [facility] 2021-10-14 2021-10-14 Letter Doctor RINCON 1.2.840.114 [id number] Univers 00:00:00 00:00:00 (Out) Unassigned, AMANDA 350.1.13.10 ity of [place] [facility] 4.2.7.2.686 [place] [id number] [address] 2021-10-14 2021-10-14 Letter Doctor MCKENZIE 1.2.840.114 [id number] Univers 00:00:00 00:00:00 (Out) Unassigned, AMANDA 350.1.13.10 ity of [place] [facility] 4.2.7.2.686 [place] [id number] [address] 2021-09-15 2021-09-15 Outpatient R TOOTIE WELLS [facility] B [id number] Univers 09:00:00 09:40:03 [facility] 2021-09-15 2021-09-15 Routine Sulma ORJOSE RAFAEL [facility] 1.2.840.114 [id number] Univers 09:00:00 09:40:03 Tootie HOUGH 350.1.13.10 i ty of Visit [place] 4[place]2.[place].2.[place] [id number] [address] 2021-08-16 2021-08-16 Outpatient R ANIRUDH GLORIA [facility] [id number] Univers 08:30:00 09:40:59 ity [facility] 2021-08-16 2021-08-16 Initial Anirudh Gloria [facility] MOISE 1.2.840.114 [id number] Univers 08:30:00 09:40:59 [place] 350.1.13.10 i ty of Visit [place] 4[place].2.[place] [id number] [address] 2021-08-16 2021-08-16 Lisa RINCON 1.2.840.114 [id number] Univers 00:00:00 00:00:00 Only Unassigned, AMANDA 350.1.13.10 ity of [place] [facility] 4.2.7.2.686 [place] [id number] [place] [address] Branch Results Test Description Test Time Test Comments Results Result Comments Source CBC (INCLUDES DIFF/PLT)-Q 2022-05-11 03:00:00 Test Item Value Reference Range Interpretation Comme nts WHITE BLOOD CELL COUNT-Q See_Comment [A utomated message] The (test code = 6690-2) system which generated this result tra nsmitted reference range : 3.8 - 10.8 Thousand/u L. The reference range was not used to interpr et this result as felix l/abnormal. RED BLOOD CELL COUNT-Q See_Comment [Aut omated message] The (test code = 789-8) system w [facility] generated this result tra nsmitted reference range : 3.80 - 5.10 Million/uL . The reference range was not used to interpr et this result as felix l/abnormal. HEMOGLOBIN-Q (test code 12.1 g/dL 11.7-15.5 = 718-7) HEMATOCRIT-Q (test code 38.1 % 35.0-45.0 = 4544-3) MCV-Q (test code = 79.5 fL 80.0-100.0 L 787-2) MCH-Q (test code = 25.3 pg 27.0-33.0 L 785-6) MCHC-Q (test code = 31.8 g/dL 32.0-36.0 L 786-4) RDW-Q (test code = 14.4 % 11.0-15.0 788-0) PLATELET COUNT-Q (test See_Comment [Aut omated message] The code = 777-3) system which g enerated this result tra nsmitted reference range : 140 - 400 Thousand/uL. Th e reference range was not u sed to interpret this result as normal/abnormal . MPV-Q (test code = 11.1 fL 7.5-12.5 776-5) ABSOLUTE NEUTROPHILS-Q See_Comment [Aut omated message] The (test code = 751-8) system w [facility] generated this result tra nsmitted reference range : 1500 - 7800 cells/uL. The reference range was not used to interpr et this result as felix l/abnormal. ABSOLUTE LYMPHOCYTES-Q See_Comment [Aut omated message] The (test code = 731-0) system w [employer] generated this result tra nsmitted reference range : 850 - 3900 cells/uL. The reference range was not used to interpr et this result as felix l/abnormal. ABSOLUTE MONOCYTES-Q See_Comment [Autom ated message] The (test code = 742-7) system w [employer] generated this result tra nsmitted reference range : 200 - 950 cells/uL. The r eference range was not u sed to interpret this result as normal/abnormal . ABSOLUTE EOSINOPHILS-Q See_Comment [Aut omated message] The (test code = 711-2) system w [employer] generated this result tra nsmitted reference range : 15 - 500 cells/uL. The r eference range was not u sed to interpret this result as normal/abnormal . ABSOLUTE BASOPHILS-Q See_Comment [Autom ated message] The (test code = 704-7) system w [employer] generated this result tra nsmitted reference range : 0 - 200 cells/uL. The r eference range was not u sed to interpret this result as normal/abnormal . NEUTROPHILS-Q (test code 54.4 % = 770-8) LYMPHOCYTES-Q (test code 35.7 % = 736-9) MONOCYTES-Q (test code = 6.9 % 5905-5) EOSINOPHILS-Q (test code 2.4 % = 713-8) BASOPHILS-Q (test code = 0.6 % RE PORT 706-2) COMMENT:FASTING :NOAN UPDATE OR CORRE CTION HAS BEEN MADE TO NA ME GARDENIA (test code = GARDENIA) PERFORMED BY [employer] [facility]; [address] [place] [address]; WIL ROMERO MD Lab Interpretation (test Abnormal code = 59575-7) [facility] HEMO [id number] 12:04:55 Test Item Value Reference Range Interpretation Comments SCREEN (test Negative Performed at [facility] code = 846) Laboratory Serv [facility] Blood Bank1 [address] [place] [address]Quma Free: [phone] A No. [id number] RHIG REQUIRED? (test 0 Syringes Perform ed at [facility] code = 1747) Laboratory [facility] Blood Bank[address] [place], [place] [address]Toll Free: [phone] A No. [id number] [facility] [id number] 12:04:55 Test Item Value Reference Range Interpretation Comments SCREEN (test Negative Performed at [facility] code = 846) Laboratory [facility] Blood Bank[address] [place], [place] [address]Toll Free: [phone] A No. [id number] RHIG REQUIRED? (test 0 Syringes Perform ed at [facility] code = 1747) Laboratory [facility] Blood [address] [place], [place] [id number] Free: [phone] A No. [id number] General acute hospital (D) IMMUNE [id number] 11:52:32 Test Item Value Reference Range Interpretation Comments RHIG CANDIDATE? No- see comment Patient i s not a (test code = candidate for R hIg- 5055) Patient is Rh N egative and baby is Rh Negative.Perfor med at [facility] Blood [place] [address]Toll Free: [phone] A No. [id number] General acute hospital (D) IMMUNE [id number] 11:52:32 Test Item Value Reference Range Interpretation Comments RHIG CANDIDATE? No- see comment Patient i s not a (test code = candidate for R hIg- 5055) Patient is Rh N egative and baby is Rh Negative.Perfor med at [facility] Blood [address] [place], [place] [id number] Free: [phone] A No. [id number] [facility] with [id number] 11:43:15 Test Item Value Reference Range Interpretation Comments WBC (test code = See_Comment H [Automated 6690-2) message] The system which generated this result transmit chi reference range : 4.30 - 11.10 10*3/?L. The reference range was not used to interpret this result as normal/abnormal . RBC (test code = See_Comment [Automated 789-8) message] The system which generated this result transmit chi reference range : 3.93 - 5.25 10*6/?L. The reference range was not used to interpret this result as normal/abnormal . HGB (test code = 10.4 g/dL 11.6-15.0 L 718-7) HCT (test code = 32.2 % 35.7-45.2 L 4544-3) MCV (test code = 80.9 fL 80.6-95.5 787-2) MCH (test code = 26.1 pg 25.9-32.8 785-6) MCHC (test code = 32.3 g/dL 31.6-35.1 786-4) RDW-SD (test code = 40.1 fL 39.0-49.9 54038-1) RDW-CV (test code = 13.8 % 12.0-15.5 788-0) PLT (test code = See_Comment [Automated 777-3) message] The system which generated this result transmit chi reference range : 166 - 358 10*3/ ?L. The reference range was not u sed to interpret th is result as normal/abnormal . MPV (test code = 11.9 fL 9.5-12.9 18072-3) NRBC/100 WBC (test See_Comment [Automat ed code = 8094070650) message] The system which generated this result transmit chi reference range : 0.0 - 10.0 /100 WBCs. The reference range was not used to interpret this result as normal/abnormal . NRBC x10^3 (test code See_Comment [Auto mated = 9052490072) message] The system which generated this result transmit chi reference range : 10*3/?L. The reference range was not used to interpret this result as normal/abnormal . GRAN MAT (NEUT) % 85.0 % (test code = 770-8) IMM GRAN % (test code 0.50 % = 4220083952) LYMPH % (test code = 6.9 % 736-9) MONO % (test code = 7.5 % 5905-5) EOS % (test code = 0.0 % 713-8) BASO % (test code = 0.1 % 706-2) GRAN MAT x10^3(ANC) 19.10 10*3/uL 1.88-7.09 H (test code = 3919490637) IMM GRAN x10^3 (test 0.12 10*3/uL 0.00-0.06 H code = 6676049235) LYMPH x10^3 (test code 1.54 10*3/uL 1.32-3.29 = 731-0) MONO x10^3 (test code 1.69 10*3/uL 0.33-0.92 H = 742-7) EOS x10^3 (test code = 0.03-0.39 L 711-2) BASO x10^3 (test code 0.03 10*3/uL 0.01-0.07 = 704-7) Lab Interpretation Abnormal (test code = 16280-9) [facility] with [id number] 11:43:15 Test Item Value Reference Range Interpretation Comments WBC (test code = See_Comment H [Automated 6690-2) message] The system which generated this result transmit chi reference range : 4.30 - 11.10 10*3/?L. The reference range was not used to interpret this result as normal/abnormal . RBC (test code = See_Comment [Automated 789-8) message] The system which generated this result transmit chi reference range : 3.93 - 5.25 10*6/?L. The reference range was not used to interpret this result as normal/abnormal . HGB (test code = 10.4 g/dL 11.6-15.0 L 718-7) HCT (test code = 32.2 % 35.7-45.2 L 4544-3) MCV (test code = 80.9 fL 80.6-95.5 787-2) MCH (test code = 26.1 pg 25.9-32.8 785-6) MCHC (test code = 32.3 g/dL 31.6-35.1 786-4) RDW-SD (test code = 40.1 fL 39.0-49.9 63021-3) RDW-CV (test code = 13.8 % 12.0-15.5 788-0) PLT (test code = See_Comment [Automated 777-3) message] The system which generated this result transmit chi reference range : 166 - 358 10*3/ ?L. The reference range was not u sed to interpret th is result as normal/abnormal . MPV (test code = 11.9 fL 9.5-12.9 75543-0) NRBC/100 WBC (test See_Comment [Automat ed code = 3094718898) message] The system which generated this result transmit chi reference range : 0.0 - 10.0 /100 WBCs. The reference range was not used to interpret this result as normal/abnormal . NRBC x10^3 (test code See_Comment [Auto mated = 0731345069) message] The system which generated this result transmit chi reference range : 10*3/?L. The reference range was not used to interpret this result as normal/abnormal . GRAN MAT (NEUT) % 85.0 % (test code = 770-8) IMM GRAN % (test code 0.50 % = 6927812781) LYMPH % (test code = 6.9 % 736-9) MONO % (test code = 7.5 % 5905-5) EOS % (test code = 0.0 % 713-8) BASO % (test code = 0.1 % 706-2) GRAN MAT x10^3(ANC) 19.10 10*3/uL 1.88-7.09 H (test code = 4661341428) IMM GRAN x10^3 (test 0.12 10*3/uL 0.00-0.06 H code = 3173421800) LYMPH x10^3 (test code 1.54 10*3/uL 1.32-3.29 = 731-0) MONO x10^3 (test code 1.69 10*3/uL 0.33-0.92 H = 742-7) EOS x10^3 (test code = 0.03-0.39 L 711-2) BASO x10^3 (test code 0.03 10*3/uL 0.01-0.07 = 704-7) Lab Interpretation Abnormal (test code = 48988-2) [facility] Surface [id number] 15:58:55 Test Item Value Reference Range Interpretation Comments HBsAg Semi-Quantitative (test code = Negative Negative 5195-3) [facility] B Surface [id number] 15:58:55 Test Item Value Reference Range Interpretation Comments HBsAg Semi-Quantitative (test code = Negative Negative 5195-3) [facility]landHIV 1/2 AG-AB WITH [id number] 09:10:23 Test Item Value Reference Range Interpretation Comments HIV Negative Negative Semi-quantitative (test code = 86000-0) GARDENIA (test code = Non-reactive for HIV-1 GARDENIA) antigen and HIV-1/HIV-2 antibodies. ?No laboratory evidence of HIV infection. ?Repeat in 2-4 weeks if acute HIV infection is suspected. [facility] WITH [id number] 09:10:23 Test Item Value Reference Range Interpretation Comments HIV Negative Negative Semi-quantitative (test code = 07083-4) GARDENIA (test code = Non-reactive for HIV-1 GARDENIA) antigen and HIV-1/HIV-2 antibodies. ?No laboratory evidence of HIV infection. ?Repeat in 2-4 weeks if acute HIV infection is suspected. [facility]landABORH Confirmation (Lab Only)2022-04-01 09:06:23 Test Item Value Reference Range Interpretation Comments ABO & RH (test code O Negative Performe d at [place] = 20) Laboratory Serv [facility] Blood Bank[address] [place] [address] Free: [phone] A No. [id number] [facility] Confirmation (Lab Only)2022-04-01 09:06:23 Test Item Value Reference Range Interpretation Comments ABO & RH (test code O Negative Performe d at UT = 20) Laboratory Serv [facility] Blood [address] [place], [place] [id number] Free: [phone] A No. [id number] [facility]landType and Screen - ONCE [id number] 08:13:32 Test Item Value Reference Range Interpretation Comments ABO & RH (test code O Negative Performe d at [facility] = 20) Laboratory [facility] Blood [address] [place], [place] [address]Toll Free: [phone] A No. [id number] IAT (test code = Negative Performed a t [facility] 1185) Laboratory [facility] Blood [place] [address]Toll Free: [phone] A No. [id number] [facility] and Screen - ONCE [id number] 08:13:32 Test Item Value Reference Range Interpretation Comments ABO & RH (test code O Negative Performe d at [facility] = 20) Laboratory [facility] Blood [place] [address]Toll Free: [phone] A No. [id number] IAT (test code = Negative Performed a t [facility] 1185) Laboratory [facility] Blood [place] [address]Toll Free: [phone] A No. [id number] [facility] OR MIRIAN ONLY - [id number] 07:31:43 Test Item Value Reference Range Interpretation Comments RPR (Qualitative) (test code = Nonreactive Nonreactive 93042-9) Lab Interpretation (test code = Normal 31698-0) [facility] OR MIRIAN ONLY - [id number] 07:31:43 Test Item Value Reference Range Interpretation Comments RPR (Qualitative) (test code = Nonreactive Nonreactive 99510-8) Lab Interpretation (test code = Normal 88924-7) [facility] with [id number] 07:14:09 Test Item Value Reference Range Interpretation Comments WBC (test code = See_Comment H [Automated 9290-2) message] The system which generated this result transmit chi reference range : 4.30 - 11.10 10*3/?L. The reference range was not used to interpret this result as normal/abnormal . RBC (test code = See_Comment [Automated 139-8) message] The system which generated this result transmit chi reference range : 3.93 - 5.25 10*6/?L. The reference range was not used to interpret this result as normal/abnormal . HGB (test code = 11.8 g/dL 11.6-15.0 718-7) HCT (test code = 36.3 % 35.7-45.2 4544-3) MCV (test code = 80.0 fL 80.6-95.5 L 787-2) MCH (test code = 26.0 pg 25.9-32.8 785-6) MCHC (test code = 32.5 g/dL 31.6-35.1 786-4) RDW-SD (test code = 40.7 fL 39.0-49.9 66262-9) RDW-CV (test code = 14.0 % 12.0-15.5 788-0) PLT (test code = See_Comment [Automated 777-3) message] The system which generated this result transmit chi reference range : 166 - 358 10*3/ ?L. The reference range was not u sed to interpret th is result as normal/abnormal . MPV (test code = 11.9 fL 9.5-12.9 97843-8) NRBC/100 WBC (test See_Comment [Automat ed code = 2762847406) message] The system which generated this result transmit chi reference range : 0.0 - 10.0 /100 WBCs. The reference range was not used to interpret this result as normal/abnormal . NRBC x10^3 (test code See_Comment [Auto mated = 5685740276) message] The system which generated this result transmit chi reference range : 10*3/?L. The reference range was not used to interpret this result as normal/abnormal . GRAN MAT (NEUT) % 72.9 % (test code = 770-8) IMM GRAN % (test code 0.60 % = 4309756486) LYMPH % (test code = 17.1 % 736-9) MONO % (test code = 8.6 % 5905-5) EOS % (test code = 0.4 % 713-8) BASO % (test code = 0.4 % 706-2) GRAN MAT x10^3(ANC) 10.15 10*3/uL 1.88-7.09 H (test code = 3426134890) IMM GRAN x10^3 (test 0.08 10*3/uL 0.00-0.06 H code = 0228989254) LYMPH x10^3 (test code 2.38 10*3/uL 1.32-3.29 = 731-0) MONO x10^3 (test code 1.20 10*3/uL 0.33-0.92 H = 742-7) EOS x10^3 (test code = 0.05 10*3/uL 0.03-0.39 711-2) BASO x10^3 (test code 0.06 10*3/uL 0.01-0.07 = 704-7) Lab Interpretation Abnormal (test code = 09074-2) [facility] with [id number] 07:14:09 Test Item Value Reference Range Interpretation Comments WBC (test code = See_Comment H [Automated 7969-2) message] The system which generated this result transmit chi reference range : 4.30 - 11.10 10*3/?L. The reference range was not used to interpret this result as normal/abnormal . RBC (test code = See_Comment [Automated 089-8) message] The system which generated this result transmit chi reference range : 3.93 - 5.25 10*6/?L. The reference range was not used to interpret this result as normal/abnormal . HGB (test code = 11.8 g/dL 11.6-15.0 718-7) HCT (test code = 36.3 % 35.7-45.2 4544-3) MCV (test code = 80.0 fL 80.6-95.5 L 787-2) MCH (test code = 26.0 pg 25.9-32.8 785-6) MCHC (test code = 32.5 g/dL 31.6-35.1 786-4) RDW-SD (test code = 40.7 fL 39.0-49.9 11430-7) RDW-CV (test code = 14.0 % 12.0-15.5 788-0) PLT (test code = See_Comment [Automated 357-3) message] The system which generated this result transmit chi reference range : 166 - 358 10*3/ ?L. The reference range was not u sed to interpret th is result as normal/abnormal . MPV (test code = 11.9 fL 9.5-12.9 95206-7) NRBC/100 WBC (test See_Comment [Automat ed code = 3431422783) message] The system which generated this result transmit chi reference range : 0.0 - 10.0 /100 WBCs. The reference range was not used to interpret this result as normal/abnormal . NRBC x10^3 (test code See_Comment [Auto mated = 4291711044) message] The system which generated this result transmit chi reference range : 10*3/?L. The reference range was not used to interpret this result as normal/abnormal . GRAN MAT (NEUT) % 72.9 % (test code = 770-8) IMM GRAN % (test code 0.60 % = 1253947745) LYMPH % (test code = 17.1 % 736-9) MONO % (test code = 8.6 % 5905-5) EOS % (test code = 0.4 % 713-8) BASO % (test code = 0.4 % 706-2) GRAN MAT x10^3(ANC) 10.15 10*3/uL 1.88-7.09 H (test code = 7169203423) IMM GRAN x10^3 (test 0.08 10*3/uL 0.00-0.06 H code = 2422531119) LYMPH x10^3 (test code 2.38 10*3/uL 1.32-3.29 = 731-0) MONO x10^3 (test code 1.20 10*3/uL 0.33-0.92 H = 742-7) EOS x10^3 (test code = 0.05 10*3/uL 0.03-0.39 711-2) BASO x10^3 (test code 0.06 10*3/uL 0.01-0.07 = 704-7) Lab Interpretation Abnormal (test code = 97150-9) [facility] URINALYSIS W/O SPECIFIC [id number] 16:01:00 Test Item Value Reference Range Interpretation Comments POCT PH U (test code = 3254) N/A 5-8 POCT U LEUK EST (test code = N/A Negative - Negative 3263) POCT U NIT (test code = 3262) N/A Negative - Negative POCT U PROT (test code = 3259) Negative Negative - Negative POCT U GLU (test code = 3256) Negative Negative - Negative POCT U KETONE (test code = 3258) N/A Negative - Negative POCT U BLD (test code = 3257) N/A Negative - [facility] [id number] 15:17:00 Test Item Value Reference Range Interpretation Comments POCT PH U (test code = 3254) n/a 5-8 POCT U LEUK EST (test code = n/a Negative - Negative 3263) POCT U NIT (test code = 3262) n/a Negative - Negative POCT U PROT (test code = 3259) Negative Negative - Negative POCT U GLU (test code = 3256) Normal Negative - Negative POCT U KETONE (test code = 3258) n/a Negative - Negative POCT U BLD (test code = 3257) n/a Negative - Negative [facility] URINALYSIS W/O SPECIFIC [id number] 15:55:00 Test Item Value Reference Range Interpretation Comments POCT PH U (test code = 3254) N/A 5-8 POCT U LEUK EST (test code = N/A Negative - Negative 3263) POCT U NIT (test code = 3262) N/A Negative - Negative POCT U PROT (test code = 3259) Trace Negative - Negative POCT U GLU (test code = 3256) Negative Negative - Negative POCT U KETONE (test code = 3258) N/A Negative - Negative POCT U BLD (test code = 3257) N/A Negative - Negative [facility] SPECIFIC [id number] 17:10:00 Test Item Value Reference Range Interpretation Comments POCT PH U (test code = 3254) n/a 5-8 POCT U LEUK EST (test code = n/a Negative - Negative 3263) POCT U NIT (test code = 3262) n/a Negative - Negative POCT U PROT (test code = 3259) trace Negative - Negative POCT U GLU (test code = 3256) negative Negative - Negative POCT U KETONE (test code = 3258) n/a Negative - Negative POCT U BLD (test code = 3257) n/a Negative - Negative [facility] ([facility]/H, RBC, INDICES,$WBC, PLT)-[id number] 01:00:00 Test Item Value Reference Range Interpretation Comments WHITE BLOOD CELL See_Comment H [Automated COUNT-Q (test code = message ] The 6690-2) system which generated this result transmitted reference range : 3.8 - 10.8 Thousand/uL. Th e reference range was not used to interpret this result as normal/abnormal . RED BLOOD CELL See_Comment [Automated COUNT-Q (test code = message ] The 789-8) system which generated this result transmitted reference range : 3.80 - 5.10 Million/uL. The reference range was not used to interpret this result as normal/abnormal . HEMOGLOBIN-Q (test 11.4 g/dL 11.7-15.5 L code = 718-7) HEMATOCRIT-Q (test 36.5 % 35-45 code = 4544-3) MCV-Q (test code = 82 fL 80-100 787-2) MCH-Q (test code = 25.6 pg 27-33 L 785-6) MCHC-Q (test code = 31.2 g/dL 32-36 L 786-4) RDW-Q (test code = 12.9 % 11-15 788-0) PLATELET COUNT-Q See_Comment [Automated (test code = 777-3) message] The system which generated this result transmitted reference range : 140 - 400 Thousand/uL. Th e reference range was not used to interpret this result as normal/abnormal . MPV-Q (test code = 11.5 fL 7.5-12.5 776-5) GARDENIA (test code = GARDENIA) PERFORMED BY [employer] [facility]; [address] [place] [phone]; WIL ROMERO MD Lab Interpretation Abnormal (test code = 17199-2) [facility] W/O SPECIFIC [id number] 19:35:00 Test Item Value Reference Range Interpretation Comments POCT PH U (test code = 3254) N/A 5-8 POCT U LEUK EST (test code = N/A Negative - Negative 3263) POCT U NIT (test code = 3262) N/A Negative - Negative POCT U PROT (test code = 3259) Trace Negative - Negative POCT U GLU (test code = 3256) Negative Negative - Negative POCT U KETONE (test code = 3258) N/A Negative - Negative POCT U BLD (test code = 3257) N/A Negative - Negative [facility] URINALYSIS W/O SPECIFIC [id number] 16:09:00 Test Item Value Reference Range Interpretation Comments POCT PH U (test code = 3254) n/a 5-8 POCT U LEUK EST (test code = n/a Negative - Negative 3263) POCT U NIT (test code = 3262) n/a Negative - Negative POCT U PROT (test code = 3259) negative Negative - Negative POCT U GLU (test code = 3256) negative Negative - Negative POCT U KETONE (test code = 3258) n/a Negative - Negative POCT U BLD (test code = 3257) n/a Negative - Negative Lab Interpretation (test code = Normal 90246-7) [facility] URINALYSIS W/O SPECIFIC [id number] 15:30:00 Test Item Value Reference Range Interpretation Comments POCT PH U (test code = 3254) N/A 5-8 POCT U LEUK EST (test code = N/A Negative - Negative 3263) POCT U NIT (test code = 3262) N/A Negative - Negative POCT U PROT (test code = 3259) Negative Negative - Negative POCT U GLU (test code = 3256) Negative Negative - Negative POCT U KETONE (test code = 3258) N/A Negative - Negative POCT U BLD (test code = 3257) N/A Negative - Negative [facility] AND RH [id number] 23:00:00 Test Item Value Reference Range Interpretation Comments ABO GROUP-Q O (test code = 883-9) RH TYPE-Q (test RH(D) NEGATIVE For addit ional code = 34057-1) information, please refer to http://educatio Teresa stDiagnostics.c om/fa [email or web address]/[email or web address] (This link is being provid ed for informational/e ducat ional purposes only.) REPORT COMMENT:FASTING :NO GARDENIA (test code PERFORMED BY [facility] = G[place]ENIA) [facility]; [address] [facility] [place] [address]; WIL ROMERO MD [facility] W/O SPECIFIC [id number] 16:17:00 Test Item Value Reference Range Interpretation Comments POCT PH U (test code = 3254) N/A 5-8 POCT U LEUK EST (test code = N/A Negative - Negative 3263) POCT U NIT (test code = 3262) N/A Negative - Negative POCT U PROT (test code = 3259) Negative Negative - Negative POCT U GLU (test code = 3256) Negative Negative - Negative POCT U KETONE (test code = 3258) N/A Negative - Negative POCT U BLD (test code = 3257) N/A Negative - Negative [facility]
[2023-03-17 00:13] LABS: Absolute Lymphocytes (CBC) 3.3 K/uL (0.7-4.9); Hematocrit 41.7 % (36.0-45.0); Lymphocytes % 31.6 % (15.3-44.8); MCV 79.9 fL (80-100); MPV 9.2 fL (7.6-11.3); Platelets 200 thou/uL (152-406); RBC Red Blood Cell Count 5.22 M/uL (3.86-4.86)
[2023-03-17 00:17] LABS: Urine Bacteria <20 /HPF (<20); Urine Bilirubin NEGATIVE (Negative); Urine Blood Negative (Negative); Urine Clarity Extremely Turbid (Clear); Urine Color Light-Yellow (Yellow); Urine Crystals Unidentified Few /HPF (None Seen); Urine Glucose NEGATIVE (Negative); Urine Mucus Slight /HPF (None Seen); Urine Protein 1+ (Negative); Urine RBC <5 /HPF (None Seen); Urine Urobilinogen Normal (Normal); Urine WBC Clump Rare /HPF (None Seen); Urine pH 7.5 (5.0-7.0)
[2023-03-17 00:34] LABS: Bilirubin Total 0.2 mg/dL (0.2-1.0); Potassium 3.7 mEq/L (3.5-5.1); Protein, Total 7.8 g/dL (6.4-8.2)
[2023-03-17] MEDS ORDERED: KETOROLAC 30 MG/ML INJ ONE (00:53)
--- NOTE | 2023-03-17 02:25 | ER ---
Nurse's Notes [facility] Name: Theresa Green Age: 23 yrs Sex: Female : 2000 Arrival Date: 03/16/2023 Time: 23:20 Bed 17 Private MD: Diagnosis: Lower abdominal pain, unspecified Presentation: 03/16 23:34 Chief complaint: Patient states: bilateral sharp pelvic pain of 8,onset 1 hour ago pf1 after intercourse. Patient denies any vaginal bleeding. Coronavirus screen: Vaccine status: Patient reports receiving the 2nd dose of the covid vaccine. Client denies travel out of the [place] in the last 14 days. At this time, the client does not indicate any symptoms associated with coronavirus-19. Ebola Screen: Patient negative for fever greater than or equal to 101.5 degrees Fahrenheit, and additional compatible Ebola Virus Disease symptoms. Initial Sepsis Screen: Does the patient meet any 2 criteria? No. Patient's initial sepsis screen is negative. Does the patient have a suspected source of infection? No. Patient's initial sepsis screen is negative. Risk Assessment: Do you want to hurt yourself or someone else? Patient reports no desire to harm self or others. 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 - Social history:: Smoking status: Patient denies any tobacco usage or history of. Patient uses alcohol, occasionally. Patient/guardian denies using street drugs. - Family history:: not pertinent. - Hospitalizations: : No recent hospitalization is reported. Screenin/27 00:08 [facility] ED Fall Risk Assessment (Adult) History of falling in the last 3 months, kl including since admission No falls in past 3 months (0 pts) Confusion or Disorientation No (0 pts) Intoxicated or Sedated No (0 pts) Impaired Gait No (0 pts) Mobility Assist Device Used No (0 pt) Altered Elimination No (0 pt) Score/Fall Risk Level 0 - 2 = Low Risk Oriented to surroundings, Maintained a safe environment. Abuse screen: Denies threats or abuse. Nutritional screening: No deficits noted. Tuberculosis screening: No symptoms or risk factors identified. Assessment: 00:07 General: Appears uncomfortable, Behavior is calm, cooperative. Pain: Complains of pain kl in suprapubic area Pain. Neuro: No deficits noted. Cardiovascular: No deficits noted. Respiratory: No deficits noted. GI: Bowel sounds present X 4 quads. Abd is soft Reports pain after sexual intercourse. : No deficits noted. Vital Signs: 03/16 23:34 BP 130 / 84; Pulse 89; Resp 16; Temp 98.6; Pulse Ox 97% on R/A; Weight 105.69 kg; pf1 Height 5 ft. 1 in. ; Pain 07/29; 03/17 00:48 BP 126 / 65; kl 02:40 BP 126 / 79; Resp 18; kl 03/16 23:34 Body Mass Index 44.02 (105.69 kg, 154.94 cm) pf1 03/16 23:34 Pain Scale: Adult pf1 ED Course: 03/16 23:27 Patient arrived in ED. ag3 23:28 Everardo Combs MD is Attending Physician. rn 23:41 Triage completed. pf1 03/17 00:08 No provider procedures requiring assistance completed. Inserted saline lock: 20 gauge kl in right antecubital area, using aseptic technique. Blood collected. 00:09 CBC with Diff Sent. kl 00:09 CMP Sent. kl 00:09 Test, Urine Sent. kl 00:09 Urinalysis w/ reflexes Sent. kl 00:09 Patient has correct armband on for positive identification. Bed in low position. Call light in reach. Door closed. Noise minimized. Lights dimmed. Warm blanket given. 00:42 Transvaginal Study Probe In Process Unspecified. EDMS 00:50 CT Abd/Pelvis - IV Contrast Only In Process Unspecified. EDMS 01:52 Beta hcg Sent. rv1 02:00 No apparent distress. Resting quietly. kl 02:39 IV discontinued, intact, bleeding controlled, No redness/swelling at site. Pressure kl dressing applied. Administered Medications: 00:49 Drug: Ketorolac IVP 15 mg IVP once Route: IVP; Site: right antecubital; 02:39 Follow up: Response: No adverse reaction; Marked relief of symptoms Outcome: 02:25 Discharge ordered by . jonathan 02:39 Discharged to home ambulatory, 02:39 Condition: stable 02:39 Discharge instructions given to patient, Instructed on discharge instructions, follow up and referral plans. Demonstrated understanding of instructions, follow-up care, 02:41 Patient left the ED. Signatures: Dispatcher [employer] Ale العلي RN RN kl Nieto, Roman, MD MD rn Gomez, Alice ag3 Sierra Rhodes RN RN pf1 Harshal, Corry rv1 Corrections: (The following items were deleted from the chart) 00:42 00:28 In radiology for Pelvis Complete+US.RAD.BRZ. ELSIENY ELSIENY
--- NOTE | 2023-03-17 02:25 | EDPHYS ---
Physician Documentation [facility] Name: Theresa Green Age: 23 yrs Sex: Female : 2000 Arrival Date: 03/16/2023 Time: 23:20 Bed 17 Private MD: ED Physician Everardo Combs HPI: 03/16 23:42 This 23 yrs old Female presents to ER via Ambulatory with complaints of Abdominal Pain. rn 23:42 The patient presents with abdominal pain in the lower abdomen. Onset: The rn symptoms/episode began/occurred just prior to arrival. The symptoms do not radiate. Associated signs and symptoms: Pertinent negatives: nausea and vomiting, blood in stools, chest pain, constipation, diarrhea, dysuria, fever, hematuria, vaginal discharge, vomiting, vomiting blood. The symptoms are described as achy. Modifying factors: The symptoms are alleviated by nothing, the symptoms are aggravated by pressure. Severity of pain: At its worst the pain was moderate in the emergency department the pain has improved. The patient has not experienced similar symptoms in the past. The patient has not recently seen a physician. Patient reports sudden onset lower pelvic/abdominal pain following intercourse. Denies any vaginal bleeding or discharge. Has history of PCOS. Reports bilateral pelvic pain. No radiation to back. No fever. Was completely normal earlier in the day. Reports LMP 1 month ago, is due any day now. Denies . . 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 - Social history:: Smoking status: Patient denies any tobacco usage or history of. Patient uses alcohol, occasionally. Patient/guardian denies using street drugs. - Family history:: not pertinent. - Hospitalizations: : No recent hospitalization is reported. ROS: 23:42 Constitutional: Negative for fever, chills, and weight loss, Cardiovascular: Negative rn for chest pain, palpitations, and edema, Respiratory: Negative for shortness of breath, cough, wheezing, and pleuritic chest pain, Abdomen/GI: Positive for lower abdominal pain Back: Negative for injury and pain, : Negative for injury, bleeding, discharge, and swelling, MS/Extremity: Negative for injury and deformity, Skin: Negative for injury, rash, and discoloration, Neuro: Negative for headache, weakness, numbness, tingling, and seizure, Exam: 23:42 Constitutional: This is a well developed, well nourished patient who is awake, alert, rn and in no acute distress. Cardiovascular: Regular rate and rhythm. No pulse deficits. Respiratory: No increased work of breathing, no retractions or nasal flaring. Abdomen/GI: Soft, mild left lower quadrant and right lower quadrant tenderness. MS/ Extremity: Pulses equal, no cyanosis. Vital Signs: 23:34 BP 130 / 84; Pulse 89; Resp 16; Temp 98.6; Pulse Ox 97% on R/A; Weight 105.69 kg; pf1 Height 5 ft. 1 in. ; Pain 07/29; 03/17 00:48 BP 126 / 65; kl 02:40 BP 126 / 79; Resp 18; kl 03/16 23:34 Body Mass Index 44.02 (105.69 kg, 154.94 cm) pf1 03/16 23:34 Pain Scale: Adult pf1 MDM: 03/16 23:29 Patient medically screened. 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 ED course: Urine test negative prior to ultrasound. 01:53 ED course: Ultrasound shows an anechoic structure abutting or within the uterus rn strangely. No free fluid identified. Urine test was negative we will verify with serum or beta quant.. 02:24 Differential diagnosis: appendicitis, diverticulitis, Ectopic , Endometriosis, rn non-specific abd pain, Ovarian Torsion, Tubal Ovarian Abcess, Ureterolithiasis, urinary tract infection. Data reviewed: vital signs, nurses notes, lab test result(s), radiologic studies, CT scan, ultrasound, and as a result, I will discharge patient. Counseling: I had a detailed discussion with the patient and/or guardian regarding the historical points, exam findings, and any diagnostic results supporting the discharge/admit diagnosis, lab results, radiology results, the need for outpatient follow up, to return to the emergency department if symptoms worsen or persist or if there are any questions or concerns that arise at home. Response to treatment: the patient's symptoms have markedly improved after treatment, and as a result, I will discharge patient. ED course: Beta quantitative negative. Patient is not . Recommend NNP follow-up for abnormal ultrasound but does not need emergent surgery or admission at this time.. 03/16 23:41 Order name: CBC with Diff; Complete Time: 00:24 rn 03/16 23:41 Order name: CMP; Complete Time: 00:36 rn 03/16 23:41 Order name: Test, Urine; Complete Time: 00:24 rn 03/16 23:41 Order name: Urinalysis w/ reflexes; Complete Time: 00:24 rn 03/17 01:40 Order name: Beta hcg; Complete Time: 02:19 bp 03/16 23:41 Order name: CT Abd/Pelvis - IV Contrast Only rn 03/17 00:42 Order name: Transvaginal Study Probe EDWY 03/16 23:41 Order name: IV Saline Lock; Complete Time: 00:09 rn 03/16 23:41 Order name: Labs collected and sent; Complete Time: 00:09 rn Administered Medications: 00:49 Drug: Ketorolac IVP 15 mg IVP once Route: IVP; Site: right antecubital; kl 02:39 Follow up: Response: No adverse reaction; Marked relief of symptoms kl Disposition Summary: 03/17/23 02:25 Discharge Ordered Notes: Location: Home rn Problem: new rn Symptoms: have improved rn Condition: Stable rn Diagnosis - Lower abdominal pain, unspecified rn Followup: rn - With: Private Physician - When: As needed - Reason: Recheck today's complaints, Re-evaluation by your physician Discharge Instructions: - Discharge Summary Sheet rn - Abdominal Pain, Adult rn - Pain Without a Known Cause rn Forms: - Work release form kl - Medication Reconciliation Form rn - Thank You Letter rn - Antibiotic merchandising intern - Prescription Opioid Use rn - Patient Portal Instructions rn - Leadership Thank You Letter rn Signatures: Dispatcher [employer] Ale العلي RN RN kl Nieto, Roman, MD MD rn Finley, Pamala, RN RN pf1 Corrections: (The following items were deleted from the chart) 00:42 03/16 23:42 Pelvis Complete+US.RAD.BRZ ordered. [facility] 03/17 01:51 01:40 TEST, SERUM+SC.LAB.BRZ ordered. EDMS EDMS 02:03 03/16 23:42 Patient reports sudden onset lower pelvic/abdominal pain following rn intercourse. Denies any vaginal bleeding or discharge. Has history of PCOS. Reports bilateral pelvic pain. No radiation to back. No fever. Was completely normal earlier in the day.. rn
[2023-03-17 03:18] VITALS: TEMP 98.6; O2SAT 97
[2023-03-17 03:27] VITALS: BP 126/79
--- NOTE | 2023-03-17 19:06 | RAD REPORT ---
EXAM DESCRIPTION: Transvaginal Study Probe 03/17/2023 12:45 AM CDT CLINICAL HISTORY: 23 years, Female, lower pelvic pain after intercourse COMPARISON: None. TECHNIQUE: Utilizing a transvaginal array transducer, real-time ultrasound evaluation of the female pelvis was performed. Color Doppler imaging was used to assess vascular flow. Lytic the FINDINGS: The uterus measures 8.4 x 5.1 x 5.1 cm. The endometrial stripe demonstrate to be normal and measure 6.6 mm. Tiny anechoic structure is identified within the fundus of the uterus with an ave rage measurement of 0.34 cm. The right ovary measured 4.6 x 2.7 x 3.3 cm, the left ovary measures 3.7 x 1.2 x 2.7 cm. There is nor mal vascular flow and spectral waveforms with no evidence for torsion. No free fluid was identified in the posterior cul-de-sac, no adnexal masses seen. IMPRESSION: 0.34 cm anechoic structure within the fundus of the uterus. This could represent an jeremy y intrauterine gestational sac. Recommend correlation with serum beta HCG levels and follow-up ultras ound as clinically indicated. Otherwise unremarkable pelvic ultrasound. Electronically signed by: Juan Ovalle MD 03/17/2023 12:48 AM CDT Due to temporary technical issues with the PACS/Fluency reporting system, reports are being signed by the in house radiologists without review as a courtesy to insure prompt reporting. The interpreting radiologist is fully responsible for the content of the report.
--- NOTE | 2023-03-17 19:09 | RAD REPORT ---
EXAM DESCRIPTION: Abdomen Pelvis W Contrast 03/17/2023 1:05 AM CDT CLINICAL HISTORY: 23 years, Female, ABD PAIN COMPARISON: None. TECHNIQUE: Contrast-enhanced images of the abdomen and pelvis were performed utilizing 5 mm slice th ickness at 5 mm interval reconstruction from the lung bases to the ischial tuberosities after the adm inistration of IV contrast. In addition multiplanar reformats in the coronal and sagittal plane were obtained and reviewed. This exam was performed according to our departmental dose-optimization protocol, which includes auto mated exposure control, adjustment of the mA and/or kV according to patient size and/or use of iterat tariq reconstruction technique. FINDINGS: Lung bases: The lung bases demonstrate to be clear Liver: The liver demonstrate decreased attenuation corresponding to mild fatty infiltration Gallbladder: The gallbladder is contracted most likely related to lack of fasting. No significant abn ormalities identified. Pancreas: The pancreas demonstrate to be within normal limits. Spleen: The spleen demonstrate to be within normal limits. Adrenal gland: The adrenal glands demonstrate to be normal. Kidneys: The kidneys demonstrate normal uptake of contrast media. There is no evidence for nephrolith iasis and/or hydronephrosis. GI: Grossly the unopacified stomach, small bowel and large bowel demonstrate to be within normal limi ts. There is no evidence for bowel dilatation/or free air. The appendix is normal. The left site colon demonstrate to be unremarkable. Urinary bladder: The urinary bladder demonstrate to be within normal limits. The uterus demonstrate to be within normal limits. There are no adnexal masses. Abdominal aorta: The abdominal aorta demonstrate to be within normal limits. Retroperitoneum: There is no retroperitoneal lymphadenopathy. There is no evidence for ascites/or abn ormal fluid collections Bones: The bone windows demonstrate to be within normal limits. No evidence for significant skeletal lesions. Soft tissues: The soft tissues demonstrate to be within normal limits. IMPRESSION: Mild fatty infiltration of the liver. Otherwise unremarkable CT scan of the abdomen and pelvis with contrast. Electronically signed by: Juan Ovalle MD 03/17/2023 1:10 AM CDT Due to temporary technical issues with the PACS/Fluency reporting system, reports are being signed by the in house radiologists without review as a courtesy to insure prompt reporting. The interpreting radiologist is fully responsible for the content of the report.
== END 2023-03-17 02:41 | disposition home or self-care (01) ==
LOC: ER 23:20
DX: R10.30 Lower abdominal pain, unspecified (principal); E03.9 Hypothyroidism, unspecified; Z88.0 Allergy status to penicillin
CPT/HCPCS: 85025; 81001; 36415; 81025; 84702; 80053; 74177; 76830; 96374; 99284; Q9967

== ENCOUNTER 2023-05-04 18:54 | Emergency (ER) | payer OTHER ==
--- OUTSIDE RECORDS SUMMARY | 2023-05-04 18:59 | XMS REPORT | Continuity of Care Document ---
Author Name Unknown Address [address] [facility] [address] [place] [address] [facility] thconnect Address [address] [facility] [place] [address] Care Team Providers Care Design Technology Professor Name Role Phone PCP, PATIENT DOES NOT HAVE A Primary Care Physic wendie Unavailable GERI_GCBZW_Jamesa_S Attending Clinician UnavailNIECY Copeland Attending Clinician Unavailable Niecy Anderson MD Attending Clinician [phone] Sulma BARRAZA, Tootie Attending Clinician + [phone] TOOTIE WELLS Attending Clinician Unavaila Zach Jones CRNA Attending Clinician [phone] Sonya Gusman CRNA Attending Clinician [phone] Karina Ochoa MD Attending Clinician [phone] Doctor Unassigned, Nichols Attending Clinician U navailable ANIRUDH GLORIA Attending Clinician Unavailable Anirudh Gloria MD Attending Clinician [phone] Nurse, [facility] Attending Clinician Unavailable Ultrasound, Adc Mfm Attending Clinician Unavailkojo Angel MD, Deepak Attending Clinician + DEEPAK GERARD Attending Clinician Unav ailable Ultrasound, Ang-Mfm Attending Clinician UnavailCarla Kaplan MD Attending Clinician [phone] CARLA TRAYLOR Attending Clinician Unavailable GERI_GCBZW_Lucyyala_S Admitting Clinician Unavaila NIECY Santiago Admitting Clinician Unavailable Niecy Anderson MD Admitting Clinician Payers Payer Name Policy Type Policy Number Effective Date Expirati on Date Source [employer] [id number] 2021 00:00:00 Problems Condition Name Condition Details Condition Category Status Onset Date Resolution Date Last Treatment Date Treating Clinician Comments Source Encounter for elective induction of labor Encounter for elective induction of labor Disease Active 2021-05 00:00: 00 [facility] Morbid obesity with body mass index of 40.0-49.9 Morbid obesity with body mass index of 40.0-49.9 Disease Active 2021-05 00:00: 00 [facility] Liveborn infant, of rodriguez , born in hospital by delivery Liveborn infant, of rodriguez , born in hospital by delivery Disease Active 2021-05 00:00: 00 [facility] 35 weeks gestation of 35 weeks gestation of Disease Active 2021-05 0-26 00:00: 00 [facility] 39 weeks gestation of 39 weeks gestation of Disease Active 2021-05 0-26 00:00: 00 [facility] Rh negative, antepartum , third trimester Rh negative, antepartum , third trimester Disease Active 8-26 00:00: 00 [facility] Hypothyroi dism, unspecifie d type Hypothyroi dism, unspecifie d type Disease Active 7-29 00:00: 00 [facility] Hypothyroi dism during in third trimester Hypothyroi dism during in third trimester Disease Active 7-29 00:00: 00 [facility] Encounter for supervisio n of normal first in first trimester Encounter for supervisio n of normal first in first trimester Disease Active 4-28 00:00: 00 [facility] Obesity in Obesity in Disease Active 4-04 00:00: 00 [facility] Supervisio n of high risk in third trimester Supervisio n of high risk in third trimester Disease Active 4-04 00:00: 00 [facility] No known active problems No known active problems Disease [facility] Allergies, Adverse Reactions, Alerts Allergy Name Allergy Type Status Severity Reaction(s) Onset Date Inactive Date Treating Clinician Comments Source Penicill in Propensi ty to adverse reaction s Active Other - See comments 05-28 00:00: 00 Constipat ion with rectal bleeding [facility] PENICILL IN DRUG INGREDI Active Other-Cmnt 05-28 00:00: 00 [facility] Social History Social Habit Start Date Stop Date Quantity Comments Source ASSERTION 2021-07-15 00:00:00 [facility] History of tobacco use Passive smoker [facility] Alcohol intake 2022-05-11 00:00:00 2022-05-11 00:00:00 0 /d [facility] Exposure to SARS-CoV-2 (event) 2022-03-29 00:00:00 2022-04-08 08:44:00 Not sure [facility] Tobacco use and exposure 2021-12-17 00:00:00 2021-12-17 00:00:00 Smokeless tobacco non-user [facility] Sex Assigned At 2000 00:00:00 2000 00:00:00 [facility] Smoking Status Start Date Stop Date Source Never smoked tobacco [facility] Medications Ordered Medication Name Filled Medication Name Start Date Stop Date Current Medication? Ordering Clinician Indication Dosage Frequency Signature (SIG) Comments Components Source PNV no.95/pawel us fum/folic ac ( ORAL) 2021-05 05:20: 04 04-25 00:00 :00 No Take by mouth. [facility] PNV no.95/pawel us fum/folic ac ( ORAL) 2021-05 13:26: 33 Yes Take by mouth. [facility] PNV no.95/pawel us fum/folic ac ( ORAL) 2021-05 13:26: 33 Yes Take by mouth. [facility] PNV no.95/pawel us fum/folic ac ( ORAL) 2021-05 13:26: 33 Yes Take by mouth. [facility] PNV no.95/pawel us fum/folic ac ( ORAL) 2021-05 13:26: 33 Yes Take by mouth. [facility] PNV no.95/pawel us fum/folic ac ( ORAL) 2021-05 13:26: 33 Yes Take by mouth. [facility] PNV no.95/pawel us fum/folic ac ( ORAL) 2021-05 13:26: 33 Yes Take by mouth. [facility] PNV no.95/pawel us fum/folic ac ( ORAL) 2021-05 13:26: 33 Yes Take by mouth. [facility] ibuprofen (IBU) tablet 800 mg 2021-05 04:00: 00 Yes 800mg 800 mg, Oral, Q8H, First dose on 04/02/22 at 2200, Until Discontinu ed, Routine [facility] ibuprofen (IBU) tablet 800 mg 2021-05 04:00: 00 04-03 21:26 :36 No 800mg 800 mg, Oral, Q8H, First dose on 04/02/22 at 2200, Until Discontinu ed, Routine [facility] HYDROcodone -acetaminop hen (NORCO 5) 5-325 mg tablet 2 tablet 2021-05 02:00: 00 Yes 2{tbl} 2 tablet, Oral, Q6HPRN, Starting on 04/02/22 at 1999, Until Discontinu ed, Routine, Pain (scale 7-10), Alternate with Ibuprofen [facility] HYDROcodone -acetaminop hen (NORCO 5) 5-325 mg tablet 1 tablet 2021-05 02:00: 00 Yes 1{tbl} 1 tablet, Oral, Q6HPRN, Starting on 04/02/22 at 1999, Until Discontinu ed, Routine, Pain (scale 4-6), Alternate with Ibuprofen [facility] HYDROcodone -acetaminop hen (NORCO 5) 5-325 mg tablet 2 tablet 2021-05 02:00: 00 04-03 21:26 :36 No 2{tbl} 2 tablet, Oral, Q6HPRN, Starting on 04/02/22 at 1999, Until 04/03/22 at 1526, Routine, Pain (scale 7-10), Alternate with Ibuprofen [facility] HYDROcodone -acetaminop hen (NORCO 5) 5-325 mg tablet 1 tablet 2021-05 02:00: 00 04-03 21:26 :36 No 1{tbl} 1 tablet, Oral, Q6HPRN, Starting on 04/02/22 at 2000, Until 04/03/22 at 1526, Routine, Pain (scale 4-6), Alternate with Ibuprofen [facility] gabapentin (NEURONTIN) capsule 300 mg 2021-05 14:00: 00 Yes 300mg 300 mg, Oral, TID, First dose on 04/02/22 at 0800, Until Discontinu ed, Routine [facility] gabapentin (NEURONTIN) capsule 300 mg 2021-05 14:00: 00 04-03 21:26 :36 No 300mg 300 mg, Oral, TID, First dose on 04/02/22 at 0800, Until Discontinu ed, Routine [facility] acetaminoph en (TYLENOL) tablet 1,000 mg 2021-05 14:00: 00 04-02 20:33 :00 No 1000mg 1,000 mg, Oral, Q6H, 2 doses, First dose on 04/02/22 at 0800, Last dose on 04/02/22 at 1200, Routine [facility] acetaminoph en ADULT (OFIRMEV) injection 1,000 mg 2021-05 08:00: 00 04-02 08:19 :00 No 1000mg 1,000 mg, IV Infusion, at 400 mL/hr Administer over 15 Minutes, ONCE, 1 dose, On 04/02/22 at 0200, Routine
Indicatio n: Perioperat tariq Patient [facility] ketorolac (TORADOL) injection 30 mg 2021-05 04:00: 00 04-02 22:47 :00 No 30mg 30 mg, Slow IV Push, Q6H, 4 doses, First dose on Mon04/01/22 at 2200, Last dose on Mon04/02/22 at 1200, Routine [facility] lactated ringers IV infusion 1,000 mL 2021-05 03:15: 00 04-02 06:46 :18 No 1000mL at 125 mL/hr, 1,000 mL, IV Infusion, ONCE, 1 dose, On Mon04/01/22 at 2115, Routine [facility] sodium chloride 0.9 % irrigation solution 2021-05 03:08: 00 Yes PRN, Starting on Mon04/01/22 at 2108, Until Discontinu ed, Intra-op [facility] sodium chloride 0.9 % irrigation solution 2021-05 03:08: 00 04-03 21:26 :36 No PRN, Starting on Mon04/01/22 at 2108, Until Mon04/03/22 at 1526, Intra-op [facility] rho(D) immune globulin (RHOGAM) syringe 300 mcg 2021-05 02:27: 58 Yes 300ug 300 mcg, Intramuscu lar, ONCE, For 1 dose, Conditiona l, Routine [facility] rho(D) immune globulin (RHOGAM) syringe 300 mcg 2021-05 02:27: 58 04-03 21:26 :36 No 300ug 300 mcg, Intramuscu lar, ONCE, For 1 dose, Conditiona l, Routine [facility] diphenhydrA MINE (BENADRYL) injection 25 mg 2021-05 02:17: 06 Yes 25mg 25 mg, Slow IV Push, Q6HPRN, Starting on Mon04/01/22 at 2017, Until Discontinu ed, Routine, Itching [facility] diphenhydrA MINE (BENADRYL) tablet 25 mg 2021-05 02:17: 06 Yes 25mg 25 mg, Oral, Q6HPRN, Starting on Mon04/01/22 at 2017, Until Discontinu ed, Routine, Sleep, Itching [facility] ondansetron (ZOFRAN (PF)) injection 4 mg 2021-05 02:17: 06 Yes 4mg 4 mg, Slow IV Push, Q8HPRN, Starting on Mon04/01/22 at 2017, Until Discontinu ed, Routine, Nausea and Vomiting (N/V) [facility] bisacodyL (DULCOLAX) suppository 10 mg 2021-05 02:17: 06 Yes 10mg 10 mg, Rectal, QDAILYPRN, Starting on Mon04/01/22 at 2017, Until Discontinu ed, Routine, Constipati on [facility] simethicone (GAS RELIEF (SIMETHICON E)) chewable tablet 160 mg 2021-05 02:17: 06 Yes 160mg 160 mg, Oral, PC+HSPRN, Starting on Mon04/01/22 at 2017, Until Discontinu ed, Routine, Gas [facility] docusate (COLACE) capsule 200 mg 2021-05 02:17: 06 Yes 200mg 200 mg, Oral, QDAILYPRN, Starting on Mon04/01/22 at 2017, Until Discontinu ed, Routine, Constipati on [facility] magnesium hydroxide (MILK OF MAGNESIA) 400 mg/5 mL suspension 30 mL 2021-05 02:17: 06 Yes 30mL 30 mL, Oral, QDAILYPRN, Starting on Mon04/01/22 at 2017, Until Discontinu ed, Routine, Constipati on [facility] lactated ringers IV infusion 1,000 mL 2021-05 02:17: 06 Yes 1000mL at 125 mL/hr, 1,000 mL, IV Infusion, PRN, 1 dose, Starting on Mon04/01/22 at 2017, Until Discontinu ed, Routine [facility] diphenhydrA MINE (BENADRYL) injection 25 mg 2021-05 02:17: 06 04-03 21:26 :36 No 25mg 25 mg, Slow IV Push, Q6HPRN, Starting on Mon04/01/22 at 2017, Until Mon04/03/22 at 1526, Routine, Itching [facility] diphenhydrA MINE (BENADRYL) tablet 25 mg 2021-05 02:17: 06 04-03 21:26 :36 No 25mg 25 mg, Oral, Q6HPRN, Starting on Mon04/01/22 at 2016, Until 04/03/22 at 1526, Routine, Sleep, Itching [facility] ondansetron (ZOFRAN (PF)) injection 4 mg 2021-05 02:17: 06 04-03 21:26 :36 No 4mg 4 mg, Slow IV Push, Q8HPRN, Starting on Mon04/01/22 at 2016, Until 04/03/22 at 1526, Routine, Nausea and Vomiting (N/V) [facility] bisacodyL (DULCOLAX) suppository 10 mg 2021-05 02:17: 06 04-03 21:26 :36 No 10mg 10 mg, Rectal, QDAILYPRN, Starting on Mon04/01/22 at 2016, Until 04/03/22 at 1526, Routine, Constipati on [facility] simethicone (GAS RELIEF (SIMETHICON E)) chewable tablet 160 mg 2021-05 02:17: 06 04-03 21:26 :36 No 160mg 160 mg, Oral, PC+HSPRN, Starting on Mon04/01/22 at 2016, Until 04/03/22 at 1526, Routine, Gas [facility] docusate (COLACE) capsule 200 mg 2021-05 02:17: 06 04-03 21:26 :36 No 200mg 200 mg, Oral, QDAILYPRN, Starting on Mon04/01/22 at 2016, Until 04/03/22 at 1526, Routine, Constipati on [facility] magnesium hydroxide (MILK OF MAGNESIA) 400 mg/5 mL suspension 30 mL 2021-05 02:17: 06 04-03 21:26 :36 No 30mL 30 mL, Oral, QDAILYPRN, Starting on Mon04/01/22 at 2017, Until [place] 04/03/22 at 1526, Routine, Constipati on [facility] lactated ringers IV infusion 1,000 mL 2021-05 02:17: 06 04-03 21:26 :36 No 1000mL at 125 mL/hr, 1,000 mL, IV Infusion, PRN, 1 dose, Starting on Mon04/01/22 at 2017, Until Mon04/03/22 at 1526, Routine [facility] morpHINE PF (DURAMORPH- PF) injection 2021-05 02:03: 00 04-04 16:04 :40 No Epidural, ONCE INTRA PROCEDURE, Starting on Mon04/01/22 at 2003, Until Mon04/04/22 at 1004, Routine, Intra-op [facility] acetaminoph en ADULT (IRMEV) injection 2021-05 01:40: 00 04-02 02:15 :50 No IV Infusion, Administer over 15 Minutes, ONCE INTRA PROCEDURE, Starting on Mon04/01/22 at 1940, Until Mon04/01/22 at 2014, Routine, Intra-op [facility] acetaminoph en ADULT (IRMEV) injection 2021-05 01:40: 00 04-02 02:15 :50 No IV Infusion, Administer over 15 Minutes, ONCE INTRA PROCEDURE, Starting on Mon04/01/22 at 1940, Until Mon04/01/22 at 2014, Routine, Intra-op [facility] acetaminoph en ADULT (IRMEV) injection 2021-05 01:40: 00 04-02 02:15 :50 No IV Infusion, Administer over 15 Minutes, ONCE INTRA PROCEDURE, Starting on Mon04/01/22 at 1940, Until Mon04/01/22 at 2014, Routine, Intra-op [facility] LR 1000 mL + oxytocin 40 units 40 unit/ 1,000 mL IV Solution 2021-05 01:27: 00 04-02 02:15 :50 No IV Infusion, CONTINUOUS PRN, Starting on Mon04/01/22 at 1927, Until Mon04/01/22 at 2014, Routine, Intra-op [facility] LR 1000 mL + oxytocin 40 units 40 unit/ 1,000 mL IV Solution 2021-05 01:27: 00 04-02 02:15 :50 No IV Infusion, CONTINUOUS PRN, Starting on Mon04/01/22 at 1927, Until Mon04/01/22 at 2014, Routine, Intra-op [facility] LR 1000 mL + oxytocin 40 units 40 unit/ 1,000 mL IV Solution 2021-05 01:27: 00 04-02 02:15 :50 No IV Infusion, CONTINUOUS PRN, Starting on Mon04/01/22 at 1927, Until Mon04/01/22 at 2014, Routine, Intra-op [facility] ceFAZolin (ANCEF) injection 2021-05 00:48: 00 04-02 02:15 :50 No IV Piggyback, ONCE INTRA PROCEDURE, Starting on Mon04/01/22 at 1848, Until Mon04/01/22 at 2014, REYES, Intra-op [facility] ceFAZolin (ANCEF) injection 2021-05 00:48: 00 04-02 02:15 :50 No IV Piggyback, ONCE INTRA PROCEDURE, Starting on Mon04/01/22 at 1848, Until Mon04/01/22 at 2014, REYES, Intra-op [facility] ceFAZolin (ANCEF) injection 2021-05 00:48: 00 04-02 02:15 :50 No IV Piggyback, ONCE INTRA PROCEDURE, Starting on Mon04/01/22 at 1848, Until Mon04/01/22 at 2014, REYES, Intra-op [facility] lactated ringers IV infusion 2021-05 00:46: 00 04-02 02:15 :50 No IV Infusion, CONTINUOUS PRN, Starting on Mon04/01/22 at 1846, Until Mon04/01/22 at 2014, Routine, Intra-op [facility] lactated ringers IV infusion 2021-05 00:46: 00 04-02 02:15 :50 No IV Infusion, CONTINUOUS PRN, Starting on Mon04/01/22 at 1846, Until Mon04/01/22 at 2014, Routine, Intra-op [facility] lactated ringers IV infusion 2021-05 00:46: 00 04-02 02:15 :50 No IV Infusion, CONTINUOUS PRN, Starting on Mon04/01/22 at 1846, Until Mon04/01/22 at 2014, Routine, Intra-op [facility] lidocaine-e pinephrine (XYLOCAINE W/EPINEPHRI NE) 2 %-1:200,000 injection 2021-05 00:36: 00 04-02 02:15 :50 No Intravenou s, ONCE INTRA PROCEDURE, Starting on Mon04/01/22 at 1836, Until Mon04/01/22 at 2014, Routine, Intra-op [facility] lidocaine-e pinephrine (XYLOCAINE W/EPINEPHRI NE) 2 %-1:200,000 injection 2021-05 00:36: 00 04-02 02:15 :50 No Intravenou s, ONCE INTRA PROCEDURE, Starting on Mon04/01/22 at 1836, Until Mon04/01/22 at 2014, Routine, Intra-op [facility] lidocaine-e pinephrine (XYLOCAINE W/EPINEPHRI NE) 2 %-1:200,000 injection 2021-05 00:36: 00 04-02 02:15 :50 No Intravenou s, ONCE INTRA PROCEDURE, Starting on Mon04/01/22 at 1836, Until Mon04/01/22 at 2014, Routine, Intra-op [facility] gabapentin 300 mg capsule 2021-05 00:00: 00 Yes [id number] 300mg Take 1 capsule by mouth in the morning and 1 capsule at noon and 1 capsule in the evening. [facility] ibuprofen 800 mg tablet 2021-05 00:00: 00 Yes [id number] 800mg Take 1 tablet by mouth every 8 (eight) hours. [facility] vitamin w/FA tablet 2021-05 00:00: 00 Yes [id number] 1{tbl} Take 1 tablet by mouth in the morning. [facility] docusate 100 mg capsule 2021-05 00:00: 00 Yes [id number] 200mg Take 2 capsules by mouth once daily as needed for Constipati on. [facility] ferrous sulfate 325 mg (65 mg iron) tablet 2021-05 00:00: 00 Yes [id number] 325mg Take 1 tablet by mouth in the morning and 1 tablet in the evening. [facility] gabapentin 300 mg capsule 2021-05 00:00: 00 Yes [id number] 300mg Take 1 capsule by mouth in the morning and 1 capsule at noon and 1 capsule in the evening. [facility] ibuprofen 800 mg tablet 2021-05 00:00: 00 Yes [id number] 800mg Take 1 tablet by mouth every 8 (eight) hours. [facility] vitamin w/FA tablet 2021-05 00:00: 00 Yes [id number] 1{tbl} Take 1 tablet by mouth in the morning. [facility] docusate 100 mg capsule 2021-05 00:00: 00 Yes [id number] 200mg Take 2 capsules by mouth once daily as needed for Constipati on. [facility] ferrous sulfate 325 mg (65 mg iron) tablet 2021-05 00:00: 00 Yes [id number] 325mg Take 1 tablet by mouth in the morning and 1 tablet in the evening. [facility] gabapentin 300 mg capsule 2021-05 00:00: 00 Yes [id number] 300mg Take 1 capsule by mouth in the morning and 1 capsule at noon and 1 capsule in the evening. [facility] ibuprofen 800 mg tablet 2021-05 00:00: 00 Yes [id number] 800mg Take 1 tablet by mouth every 8 (eight) hours. [facility] vitamin w/FA tablet 2021-05 00:00: 00 Yes [id number] 1{tbl} Take 1 tablet by mouth in the morning. [facility] docusate 100 mg capsule 2021-05 00:00: 00 Yes [id number] 200mg Take 2 capsules by mouth once daily as needed for Constipati on. [facility] ferrous sulfate 325 mg (65 mg iron) tablet 2021-05 00:00: 00 Yes [id number] 325mg Take 1 tablet by mouth in the morning and 1 tablet in the evening. [facility] gabapentin 300 mg capsule 2021-05 00:00: 00 Yes [id number] 300mg Take 1 capsule by mouth in the morning and 1 capsule at noon and 1 capsule in the evening. [facility] ibuprofen 800 mg tablet 2021-05 00:00: 00 Yes [id number] 800mg Take 1 tablet by mouth every 8 (eight) hours. [facility] vitamin w/FA tablet 2021-05 00:00: 00 Yes [id number] 1{tbl} Take 1 tablet by mouth in the morning. [facility] docusate 100 mg capsule 2021-05 00:00: 00 Yes [id number] 200mg Take 2 capsules by mouth once daily as needed for Constipati on. [facility] ferrous sulfate 325 mg (65 mg iron) tablet 2021-05 00:00: 00 Yes [id number] 325mg Take 1 tablet by mouth in the morning and 1 tablet in the evening. [facility] gabapentin 300 mg capsule 2021-05 00:00: 00 Yes [id number] 300mg Take 1 capsule by mouth in the morning and 1 capsule at noon and 1 capsule in the evening. [facility] ibuprofen 800 mg tablet 2021-05 00:00: 00 Yes [id number] 800mg Take 1 tablet by mouth every 8 (eight) hours. [facility] vitamin w/FA tablet 2021-05 00:00: 00 Yes [id number] 1{tbl} Take 1 tablet by mouth in the morning. [facility] docusate 100 mg capsule 2021-05 00:00: 00 Yes [id number] 200mg Take 2 capsules by mouth once daily as needed for Constipati on. [facility] ferrous sulfate 325 mg (65 mg iron) tablet 2021-05 00:00: 00 Yes [id number] 325mg Take 1 tablet by mouth in the morning and 1 tablet in the evening. [facility] ibuprofen 800 mg tablet 2021-05 00:00: 00 Yes [id number] 800mg Take 1 tablet by mouth every 8 (eight) hours. [facility] docusate 100 mg capsule 2021-05 00:00: 00 Yes [id number] 200mg Take 2 capsules by mouth once daily as needed for Constipati on. [facility] ferrous sulfate 325 mg (65 mg iron) tablet 2021-05 00:00: 00 Yes [id number] 325mg Take 1 tablet by mouth in the morning and 1 tablet in the evening. [facility] ibuprofen 800 mg tablet 2021-05 00:00: 00 Yes [id number] 800mg Take 1 tablet by mouth every 8 (eight) hours. [facility] docusate 100 mg capsule 2021-05 00:00: 00 Yes [id number] 200mg Take 2 capsules by mouth once daily as needed for Constipati on. [facility] ferrous sulfate 325 mg (65 mg iron) tablet 2021-05 00:00: 00 Yes [id number] 325mg Take 1 tablet by mouth in the morning and 1 tablet in the evening. [facility] ibuprofen 800 mg tablet 2021-05 00:00: 00 Yes [id number] 800mg Take 1 tablet by mouth every 8 (eight) hours. [facility] docusate 100 mg capsule 2021-05 00:00: 00 Yes [id number] 200mg Take 2 capsules by mouth once daily as needed for Constipati on. [facility] ferrous sulfate 325 mg (65 mg iron) tablet 2021-05 00:00: 00 Yes [id number] 325mg Take 1 tablet by mouth in the morning and 1 tablet in the evening. [facility] ibuprofen 800 mg tablet 2021-05 00:00: 00 Yes [id number] 800mg Take 1 tablet by mouth every 8 (eight) hours. [facility] docusate 100 mg capsule 2021-05 00:00: 00 Yes [id number] 200mg Take 2 capsules by mouth once daily as needed for Constipati on. [facility] ferrous sulfate 325 mg (65 mg iron) tablet 2021-05 00:00: 00 Yes [id number] 325mg Take 1 tablet by mouth in the morning and 1 tablet in the evening. [facility] gabapentin 300 mg capsule 2021-05 00:00: 00 04-25 00:00 :00 No [id number] 300mg Take 1 capsule by mouth in the morning and 1 capsule at noon and 1 capsule in the evening. [facility] vitamin w/FA tablet 2021-05 00:00: 00 04-25 00:00 :00 No [id number] 1{tbl} Take 1 tablet by mouth in the morning. [facility] HYDROcodone -acetaminop hen 5-325 mg tablet 2021-05 00:00: 00 04-10 05:59 :00 No [id number] 1{tbl} Take 1 tablet by mouth every 6 (six) hours as needed for Pain (scale 4-6) (Alternate with Ibuprofen) for up to 7 days. Indication s: acute pain [facility] HYDROcodone -acetaminop hen 5-325 mg tablet 2021-05 00:00: 00 04-10 05:59 :00 No [id number] 1{tbl} Take 1 tablet by mouth every 6 (six) hours as needed for Pain (scale 4-6) (Alternate with Ibuprofen) for up to 7 days. Indication s: acute pain [facility] HYDROcodone -acetaminop hen 5-325 mg tablet 2021-05 00:00: 00 04-10 05:59 :00 No [id number] 1{tbl} Take 1 tablet by mouth every 6 (six) hours as needed for Pain (scale 4-6) (Alternate with Ibuprofen) for up to 7 days. Indication s: acute pain [facility] HYDROcodone -acetaminop hen 5-325 mg tablet 2021-05 00:00: 00 04-10 05:59 :00 No [id number] 1{tbl} Take 1 tablet by mouth every 6 (six) hours as needed for Pain (scale 4-6) (Alternate with Ibuprofen) for up to 7 days. Indication s: acute pain [facility] HYDROcodone -acetaminop hen 5-325 mg tablet 2021-05 00:00: 00 04-10 05:59 :00 No [id number] 1{tbl} Take 1 tablet by mouth every 6 (six) hours as needed for Pain (scale 4-6) (Alternate with Ibuprofen) for up to 7 days. Indication s: acute pain [facility] ceFAZolin in 0.9% sodium chloride (ANCEF) 2 gram/100 mL RTU 2 g 2021-05 23:51: 46 04-02 00:44 :00 No 2000mg 2 g (2,000 mg), IV Piggyback, O.R. HOLDING ONCE, 1 dose, Starting on Mon04/01/22 at 1751, Until Mon04/01/22 at 1844, Administer over 30 Minutes, 100 mL
Reas on for Anti-Infec tive: Surgical Prophylaxi s
Surgi fito Prophylaxi s: [employer]
Duration of therapy: within 24 hours of surgery [facility] phenylephri ne (VAZCULEP) injection 2021-05 21:28: 00 04-02 02:15 :50 No Slow IV Push, ONCE INTRA PROCEDURE, Starting on Mon04/01/22 at 1528, Until Mon04/01/22 at 2015, Routine, Intra-op [facility] ePHEDrine 25 mg/5 mL (5 mg/mL) syringe 2021-05 21:28: 00 04-02 02:15 :50 No Slow IV Push, ONCE INTRA PROCEDURE, Starting on Mon04/01/22 at 1528, Until Mon04/01/22 at 2014, Routine, Intra-op [facility] phenylephri ne (VAZCULEP) injection 2021-05 21:28: 00 04-02 02:15 :50 No Slow IV Push, ONCE INTRA PROCEDURE, Starting on Mon04/01/22 at 1528, Until Mon04/01/22 at 2014, Routine, Intra-op [facility] ePHEDrine 25 mg/5 mL (5 mg/mL) syringe 2021-05 21:28: 00 04-02 02:15 :50 No Slow IV Push, ONCE INTRA PROCEDURE, Starting on Mon04/01/22 at 1528, Until Mon04/01/22 at 2014, Routine, Intra-op [facility] phenylephri ne (VAZCULEP) injection 2021-05 21:28: 00 04-02 02:15 :50 No Slow IV Push, ONCE INTRA PROCEDURE, Starting on Mon04/01/22 at 1528, Until Mon04/01/22 at 2014, [facility], [facility] mL (5 mg/mL) syringe 2021-05 21:28: 00 04-02 02:15 :50 No Slow IV Push, ONCE INTRA PROCEDURE, Starting on Mon04/01/22 at 1528, Until Mon04/01/22 at 2014, Routine, Intra-op [facility] PIB fentaNYL-ro pivacaine 2 mcg/mL-0.1 % (PF) in NS 200 mL epidural infusion RTU 2021-05 20:32: 00 04-02 02:15 :50 No Epidural, ONCE INTRA PROCEDURE, Starting on Mon04/01/22 at 1432, Until Mon04/01/22 at 2014, Routine, Intra-op [facility] PIB fentaNYL-ro pivacaine 2 mcg/mL-0.1 % (PF) in NS 200 mL epidural infusion RTU 2021-05 20:32: 00 04-02 02:15 :50 No Epidural, ONCE INTRA PROCEDURE, Starting on Mon04/01/22 at 1432, Until Mon04/01/22 at 2014, Routine, Intra-op [facility] PIB fentaNYL-ro pivacaine 2 mcg/mL-0.1 % (PF) in NS 200 mL epidural infusion RTU 2021-05 20:32: 00 04-02 02:15 :50 No Epidural, ONCE INTRA PROCEDURE, Starting on Mon04/01/22 at 1432, Until Mon04/01/22 at 2014, Routine, Intra-op [facility] PIB fentaNYL-ro pivacaine 2 mcg/mL-0.1 % (PF) in NS 200 mL epidural infusion RTU 2021-05 20:32: 00 04-02 02:15 :50 No Epidural, ONCE INTRA PROCEDURE, Starting on Mon04/01/22 at 1432, Until Mon04/01/22 at 2014, Routine, Intra-op [facility] PIB fentaNYL-ro pivacaine 2 mcg/mL-0.1 % (PF) in NS 200 mL epidural infusion RTU 2021-05 20:32: 00 04-02 02:15 :50 No Epidural, ONCE INTRA PROCEDURE, Starting on Mon04/01/22 at 1432, Until Mon04/01/22 at 2014, Routine, Intra-op [facility] PIB fentaNYL-ro pivacaine 2 mcg/mL-0.1 % (PF) in NS 200 mL epidural infusion RTU 2021-05 20:32: 00 04-02 02:15 :50 No Epidural, ONCE INTRA PROCEDURE, Starting on Mon04/01/22 at 1432, Until Mon04/01/22 at 2014, Routine, Intra-op [facility] lidocaine-e pinephrine (XYLOCAINE W/EPINEPHRI NE) 2 %-1:200,000 injection 2021-05 20:28: 00 04-02 02:15 :50 No Intravenou s, ONCE INTRA PROCEDURE, Starting on Mon04/01/22 at 1428, Until Mon04/01/22 at 2014, Routine, Intra-op [facility] lidocaine-e pinephrine (XYLOCAINE W/EPINEPHRI NE) 2 %-1:200,000 injection 2021-05 20:28: 00 04-02 02:15 :50 No Intravenou s, ONCE INTRA PROCEDURE, Starting on Mon04/01/22 at 1428, Until Mon04/01/22 at 2015, Routine, Intra-op [facility] lidocaine-e pinephrine (XYLOCAINE W/EPINEPHRI NE) 2 %-1:200,000 injection 2021-05 20:28: 00 04-02 02:15 :50 No Intravenou s, ONCE INTRA PROCEDURE, Starting on Mon04/01/22 at 1428, Until Mon04/01/22 at 2014, Routine, Intra-op [facility] lidocaine 1% (XYLOCAINE) 100 mg/10 mL (1 %) injection 2021-05 20:14: 00 04-02 02:15 :50 No Infiltrati on, ONCE INTRA PROCEDURE, Starting on Mon04/01/22 at 1414, Until Mon04/01/22 at 2014, Routine, Intra-op [facility] lidocaine 1% (XYLOCAINE) 100 mg/10 mL (1 %) injection 2021-05 20:14: 00 04-02 02:15 :50 No Infiltrati on, ONCE INTRA PROCEDURE, Starting on Mon04/01/22 at 1414, Until Mon04/01/22 at 2014, Routine, Intra-op [facility] lidocaine 1% (XYLOCAINE) 100 mg/10 mL (1 %) injection 2021-05 20:14: 00 04-02 02:15 :50 No Infiltrati on, ONCE INTRA PROCEDURE, Starting on Mon04/01/22 at 1414, Until Mon04/01/22 at 2014, Routine, Intra-op [facility] loperamide (IMODIUM A-D) capsule 2 mg 2021-05 15:46: 33 04-02 02:27 :56 No 2mg 2 mg, Oral, Q4HPRN, Starting on Mon04/01/22 at 0946, Until Mon04/01/22 at 2026, Routine, Diarrhea [facility] misoprostol (CYTOTEC) quarter-tab let 25 mcg 2021-05 06:15: 00 04-01 06:58 :00 No 25ug 25 mcg, Oral, ONCE, 1 dose, On Mon04/01/22 at 0015, Routine [facility] ondansetron (ZOFRAN (PF)) injection 4 mg 2021-05 06:08: 39 04-02 02:27 :56 No 4mg 4 mg, Slow IV Push, Q6HPRN, Starting on Mon04/01/22 at 0008, Until Mon04/01/22 at 2026, Routine, Nausea and Vomiting (N/V) [facility] terbutaline (BRETHINE) injection 0.25 mg 2021-05 06:08: 39 04-02 02:27 :56 No .25mg 0.25 mg, Subcutaneo us, Q15MIN PRN, 4 doses, Starting on Mon04/01/22 at 0008, Until Mon04/01/22 at 2026, Routine, Tachysysto le with NRFHT [facility] misoprostol (CYTOTEC) quarter-tab let 25 mcg 2021-05 06:08: 39 04-02 02:27 :56 No 25ug 25 mcg, Vaginal, Q4HPRN, 4 doses, Starting on Mon04/01/22 at 0008, Until Mon04/01/22 at 2026, Routine, Cervical ripening [facility] oxytocin (PITOCIN) 30 units in NS 500 mL IV infusion 2021-05 06:08: 39 04-02 02:27 :56 No 2mU/min at 2-40 mL/hr, IV Infusion, TITRATE, Starting on Mon04/01/22 at 0008, Until Mon04/01/22 at 2026, Routine [facility] lactated ringers IV infusion 500 mL 2021-05 06:08: 39 04-02 02:27 :56 No 500mL at 999 mL/hr, 500 mL, IV Infusion, PRN - SEE INSTRUCTIO NS, Starting on Mon04/01/22 at 0008, Until Mon04/01/22 at 2026, Routine [facility] [id number] IV infusion 1,000 mL 2021-05 06:08: 39 04-02 02:27 :56 No 1000mL at 1-125 mL/hr, IV Infusion, TITRATE, Starting on Mon04/01/22 at 0008, Until Mon04/01/22 at 2026, Routine [facility] ondansetron (ZOFRAN (PF)) injection 4 mg 2021-05 06:08: 39 04-02 02:27 :56 No 4mg 4 mg, Slow IV Push, Q6HPRN, Starting on Mon04/01/22 at 0008, Until Mon04/01/22 at 2026, Routine, Nausea and Vomiting (N/V) [facility] ondansetron (ZOFRAN (PF)) injection 4 mg 2021-05 06:08: 39 04-02 02:27 :56 No 4mg 4 mg, Slow IV Push, Q6HPRN, Starting on Mon04/01/22 at 0008, Until Mon04/01/22 at 2026, Routine, Nausea and Vomiting (N/V) [facility] sodium citrate-cit mirlande acid (BICITRA) 500-334 mg/5 mL solution 30 mL 2021-05 06:08: 39 04-01 19:37 :00 No 30mL 30 mL, Oral, PRE-PROCED URE ONCE, 1 dose, Starting on Mon04/01/22 at 0008, Until Discontinu ed, Routine, Surgery/Pr ocedure [facility] PNV no.95/pawel us fum/folic ac ( ORAL) 2021-05 00:02: 21 Yes Take by mouth. [facility] levothyroxi ne 75 mcg tablet 01-13 00:00: 00 Yes [id number] TAKE 1 TABLET BY MOUTH EVERY DAY IN THE MORNING ON EMPTY STOMACH FOR 90 DAYS [facility] levothyroxi ne 75 mcg tablet 01-13 00:00: 00 Yes [id number] TAKE 1 TABLET BY MOUTH EVERY DAY IN THE MORNING ON EMPTY STOMACH FOR 90 DAYS [facility] levothyroxi ne 75 mcg tablet 01-13 00:00: 00 Yes [id number] TAKE 1 TABLET BY MOUTH EVERY DAY IN THE MORNING ON EMPTY STOMACH FOR 90 DAYS [facility] levothyroxi ne 75 mcg tablet 2021-0 8-25 00:00: 00 Yes [id number] TAKE 1 TABLET BY MOUTH EVERY DAY IN THE MORNING ON EMPTY STOMACH FOR 90 DAYS [facility] levothyroxi ne 75 mcg tablet 2021-0 825 00:00: 00 Yes [id number] TAKE 1 TABLET BY MOUTH EVERY DAY IN THE MORNING ON EMPTY STOMACH FOR 90 DAYS [facility] levothyroxi ne 75 mcg tablet 2-0 825 00:00: 00 Yes [id number] TAKE 1 TABLET BY MOUTH EVERY DAY IN THE MORNING ON EMPTY STOMACH FOR 90 DAYS [facility] levothyroxi ne 75 mcg tablet 2021-0 825 00:00: 00 Yes [id number] TAKE 1 TABLET BY MOUTH EVERY DAY IN THE MORNING ON EMPTY STOMACH FOR 90 DAYS [facility] levothyroxi ne 75 mcg tablet 2-0 8-25 00:00: 00 Yes [id number] TAKE 1 TABLET BY MOUTH EVERY DAY IN THE MORNING ON EMPTY STOMACH FOR 90 DAYS [facility] levothyroxi ne 75 mcg tablet 2021-0 825 00:00: 00 Yes [id number] TAKE 1 TABLET BY MOUTH EVERY DAY IN THE MORNING ON EMPTY STOMACH FOR 90 DAYS [facility] levothyroxi ne 75 mcg tablet 2021-0 825 00:00: 00 Yes [id number] TAKE 1 TABLET BY MOUTH EVERY DAY IN THE MORNING ON EMPTY STOMACH FOR 90 DAYS [facility] levothyroxi ne 75 mcg tablet 2-0 8-25 00:00: 00 Yes [id number] TAKE 1 TABLET BY MOUTH EVERY DAY IN THE MORNING ON EMPTY STOMACH FOR 90 DAYS [facility] levothyroxi ne 75 mcg tablet 2021-0 8-25 00:00: 00 Yes [id number] TAKE 1 TABLET BY MOUTH EVERY DAY IN THE MORNING ON EMPTY STOMACH FOR 90 DAYS [facility] levothyroxi ne 75 mcg tablet 2-0 8-25 00:00: 00 Yes [id number] TAKE 1 TABLET BY MOUTH EVERY DAY IN THE MORNING ON EMPTY STOMACH FOR 90 DAYS [facility] levothyroxi ne 75 mcg tablet 2-0 8-25 00:00: 00 Yes [id number] TAKE 1 TABLET BY MOUTH EVERY DAY IN THE MORNING ON EMPTY STOMACH FOR 90 DAYS [facility] levothyroxi ne 75 mcg tablet 2-0 8-25 00:00: 00 Yes [id number] TAKE 1 TABLET BY MOUTH EVERY DAY IN THE MORNING ON EMPTY STOMACH FOR 90 DAYS [facility] levothyroxi ne 75 mcg tablet 2-0 8-25 00:00: 00 Yes [id number] TAKE 1 TABLET BY MOUTH EVERY DAY IN THE MORNING ON EMPTY STOMACH FOR 90 DAYS [facility] 2-0 8-25 00:00: 00 Yes [id number] TAKE 1 TABLET BY MOUTH EVERY DAY IN THE MORNING ON EMPTY STOMACH FOR 90 DAYS [facility] levothyroxi ne 75 mcg tablet 2-0 825 00:00: 00 Yes [id number] TAKE 1 TABLET BY MOUTH EVERY DAY IN THE MORNING ON EMPTY STOMACH FOR 90 DAYS [facility] levothyroxi ne 75 mcg tablet 2-0 825 00:00: 00 Yes [id number] TAKE 1 TABLET BY MOUTH EVERY DAY IN THE MORNING ON EMPTY STOMACH FOR 90 DAYS [facility] levothyroxi ne 75 mcg tablet 2-0 8-25 00:00: 00 Yes [id number] TAKE 1 TABLET BY MOUTH EVERY DAY IN THE MORNING ON EMPTY STOMACH FOR 90 DAYS [facility] levothyroxi ne 75 mcg tablet 2-0 825 00:00: 00 Yes [id number] TAKE 1 TABLET BY MOUTH EVERY DAY IN THE MORNING ON EMPTY STOMACH FOR 90 DAYS [facility] levothyroxi ne 75 mcg tablet 2-0 8-25 00:00: 00 Yes [id number] TAKE 1 TABLET BY MOUTH EVERY DAY IN THE MORNING ON EMPTY STOMACH FOR 90 DAYS [facility] levothyroxi ne 75 mcg tablet 2-0 8-25 00:00: 00 Yes [id number] TAKE 1 TABLET BY MOUTH EVERY DAY IN THE MORNING ON EMPTY STOMACH FOR 90 DAYS [facility] levothyroxi ne 75 mcg tablet 2-0 8-25 00:00: 00 Yes [id number] TAKE 1 TABLET BY MOUTH EVERY DAY IN THE MORNING ON EMPTY STOMACH FOR 90 DAYS [facility] levothyroxi ne 75 mcg tablet 8-25 00:00: 00 Yes [id number] TAKE 1 TABLET BY MOUTH EVERY DAY IN THE MORNING ON EMPTY STOMACH FOR 90 DAYS [facility] ergocalcife rol, vitamin d2, 1,250 mcg (50,000 unit) capsule 08-23 00:00: 00 Yes TAKE 1 CAPSULE BY MOUTH ONCE A WEEK FOR 90 DAYS [facility] ergocalcife rol, vitamin d2, 1,250 mcg (50,000 unit) capsule 08-23 00:00: 00 01-14 00:00 :00 No TAKE 1 CAPSULE BY MOUTH ONCE A WEEK FOR 90 DAYS [facility] metformin ER 500 mg 24 hr tablet 08-17 00:00: 00 Yes TAKE 1 TABLET BY MOUTH TWICE A DAY IN THE EVENING FOR 90 DAYS [facility] metformin ER 500 mg 24 hr tablet 08-17 00:00: 00 Yes TAKE 1 TABLET BY MOUTH TWICE A DAY IN THE EVENING FOR 90 DAYS [facility] metformin ER 500 mg 24 hr tablet 08-17 00:00: 00 Yes TAKE 1 TABLET BY MOUTH TWICE A DAY IN THE EVENING FOR 90 DAYS [facility] metformin ER 500 mg 24 hr tablet 08-17 00:00: 00 Yes TAKE 1 TABLET BY MOUTH TWICE A DAY IN THE EVENING FOR 90 DAYS [facility] metformin ER 500 mg 24 hr tablet 08-17 00:00: 00 Yes TAKE 1 TABLET BY MOUTH TWICE A DAY IN THE EVENING FOR 90 DAYS [facility] metformin ER 500 mg 24 hr tablet 08-17 00:00: 00 Yes TAKE 1 TABLET BY MOUTH TWICE A DAY IN THE EVENING FOR 90 DAYS [facility] metformin ER 500 mg 24 hr tablet 08-17 00:00: 00 Yes TAKE 1 TABLET BY MOUTH TWICE A DAY IN THE EVENING FOR 90 DAYS [facility] metformin ER 500 mg 24 hr tablet 08-17 00:00: 00 Yes TAKE 1 TABLET BY MOUTH TWICE A DAY IN THE EVENING FOR 90 DAYS [facility] metformin ER 500 mg 24 hr tablet 08-17 00:00: 00 Yes TAKE 1 TABLET BY MOUTH TWICE A DAY IN THE EVENING FOR 90 DAYS [facility] metformin ER 500 mg 24 hr tablet 2-0 08-17 00:00: 00 Yes TAKE 1 TABLET BY MOUTH TWICE A DAY IN THE EVENING FOR 90 DAYS [facility] metformin ER 500 mg 24 hr tablet 2-0 08-17 00:00: 00 Yes TAKE 1 TABLET BY MOUTH TWICE A DAY IN THE EVENING FOR 90 DAYS [facility] metformin ER 500 mg 24 hr tablet 2-0 08-17 00:00: 00 Yes TAKE 1 TABLET BY MOUTH TWICE A DAY IN THE EVENING FOR 90 DAYS [facility] metformin ER 500 mg 24 hr tablet 2-0 08-17 00:00: 00 Yes TAKE 1 TABLET BY MOUTH TWICE A DAY IN THE EVENING FOR 90 DAYS [facility] metformin ER 500 mg 24 hr tablet 2-0 08-17 00:00: 00 Yes TAKE 1 TABLET BY MOUTH TWICE A DAY IN THE EVENING FOR 90 DAYS [facility] metformin ER 500 mg 24 hr tablet 2021-0 08-17 00:00: 00 Yes TAKE 1 TABLET BY MOUTH TWICE A DAY IN THE EVENING FOR 90 DAYS [facility] metformin ER 500 mg 24 hr tablet 2021-0 08-17 00:00: 00 Yes TAKE 1 TABLET BY MOUTH TWICE A DAY IN THE EVENING FOR 90 DAYS [facility] metformin ER 500 mg 24 hr tablet 2021-0 08-17 00:00: 00 Yes TAKE 1 TABLET BY MOUTH TWICE A DAY IN THE EVENING FOR 90 DAYS [facility] metformin ER 500 mg 24 hr tablet 2021-0 08-17 00:00: 00 Yes TAKE 1 TABLET BY MOUTH TWICE A DAY IN THE EVENING FOR 90 DAYS [facility] metformin ER 500 mg 24 hr tablet 2021-0 08-17 00:00: 00 Yes TAKE 1 TABLET BY MOUTH TWICE A DAY IN THE EVENING FOR 90 DAYS [facility] metformin ER 500 mg 24 hr tablet 2-0 08-17 00:00: 00 Yes TAKE 1 TABLET BY MOUTH TWICE A DAY IN THE EVENING FOR 90 DAYS [facility] metformin ER 500 mg 24 hr tablet 2-0 08-17 00:00: 00 Yes TAKE 1 TABLET BY MOUTH TWICE A DAY IN THE EVENING FOR 90 DAYS [facility] metformin ER 500 mg 24 hr tablet 08-17 00:00: 00 Yes TAKE 1 TABLET BY MOUTH TWICE A DAY IN THE EVENING FOR 90 DAYS [facility] metformin ER 500 mg 24 hr tablet 08-17 00:00: 00 Yes TAKE 1 TABLET BY MOUTH TWICE A DAY IN THE EVENING FOR 90 DAYS [facility] metformin ER 500 mg 24 hr tablet 08-17 00:00: 00 Yes TAKE 1 TABLET BY MOUTH TWICE A DAY IN THE EVENING FOR 90 DAYS [facility] metformin ER 500 mg 24 hr tablet 08-17 00:00: 00 Yes TAKE 1 TABLET BY MOUTH TWICE A DAY IN THE EVENING FOR 90 DAYS [facility] PNV no.95/pawel us fum/folic ac ( ORAL) 08-16 08:46: 55 Yes Take by mouth. [facility] PNV no.95/pawel us fum/folic ac ( ORAL) 08-16 08:46: 55 Yes Take by mouth. [facility] PNV no.95/pawel us fum/folic ac ( ORAL) 08-16 08:46: 55 Yes Take by mouth. [facility] PNV no.95/pawel us fum/folic ac ( ORAL) 08-16 08:46: 55 Yes Take by mouth. [facility] PNV no.95/pawel us fum/folic ac ( ORAL) 08-16 08:46: 55 Yes Take by mouth. [facility] PNV no.95/pawel us fum/folic ac ( ORAL) 08-16 08:46: 55 Yes Take by mouth. [facility] PNV no.95/pawel us fum/folic ac ( ORAL) 08-16 08:46: 55 Yes Take by mouth. [facility] PNV no.95/pawel us fum/folic ac ( ORAL) 08-16 08:46: 55 Yes Take by mouth. [facility] PNV no.95/pawel us fum/folic ac ( ORAL) 08-16 08:46: 55 Yes Take by mouth. [facility] PNV no.95/pawel us fum/folic ac ( ORAL) 08-16 08:46: 55 Yes Take by mouth. [facility] PNV no.95/pawel us fum/folic ac ( ORAL) 08-16 08:46: 55 Yes Take by mouth. [facility] PNV no.95/pawel us fum/folic ac ( ORAL) 08-16 08:46: 55 Yes Take by mouth. [facility] PNV no.95/pawel us fum/folic ac ( ORAL) 08-16 08:46: 55 Yes Take by mouth. [facility] levothyroxi ne 75 mcg tablet 05-23 00:00: 00 01-13 00:00 :00 No TAKE 1 TABLET BY MOUTH EVERY DAY IN THE MORNING ON EMPTY STOMACH FOR 90 DAYS [facility] Vital Signs Vital Name Observation Time Observation Value Comments S silvanalayla Systolic blood pressure 2022-05-11 19:04:00 108 mm[Hg] [facility] Diastolic blood pressure 2022-05-11 19:04:00 69 mm[Hg] [facility] Heart rate 2022-05-11 19:04:00 87 /min [facility] Body temperature 2022-05-11 19:04:00 36.83 [facility] Respiratory rate 2022-05-11 19:04:00 16 /min [facility] Body height 2022-05-11 19:04:00 157.5 cm [facility] Body weight 2022-05-11 19:04:00 96.979 kg [facility] BMI 2022-05-11 19:04:00 39.10 kg/m2 [facility] Oxygen saturation in Arterial blood by Pulse oximetry 2022-05-11 19:04:00 97 /min [facility] Systolic blood pressure 2022-04-20 21:48:00 117 mm[Hg] [facility] Diastolic blood pressure 2022-04-20 21:48:00 80 mm[Hg] [facility] Heart rate 2022-04-20 21:48:00 65 /min [facility] Body temperature 2022-04-20 21:48:00 36.67 [facility] Respiratory rate 2022-04-20 21:48:00 16 /min [facility] Body height 2022-04-20 21:48:00 157.5 cm [facility] Body weight 2022-04-20 21:48:00 95.074 kg [facility] BMI 2022-04-20 21:48:00 38.34 kg/m2 [facility] Oxygen saturation in Arterial blood by Pulse oximetry 2022-04-20 21:48:00 96 /min [facility] Systolic blood pressure 2022-04-08 14:56:00 127 mm[Hg] [facility] Diastolic blood pressure 2022-04-08 14:56:00 85 mm[Hg] [facility] Heart rate 2022-04-08 14:56:00 70 /min [facility] Body temperature 2022-04-08 14:56:00 36.56 [facility] Body height 2022-04-08 14:56:00 157.5 cm [facility] Body weight 2022-04-08 14:56:00 99.61 kg [facility] BMI 2022-04-08 14:56:00 40.17 kg/m2 [facility] Systolic blood pressure 2022-04-03 13:45:00 130 mm[Hg] [facility] Diastolic blood pressure 2022-04-03 13:45:00 77 mm[Hg] [facility] Heart rate 2022-04-03 13:43:00 93 /min [facility] Body temperature 2022-04-03 13:43:00 36.94 [facility] Respiratory rate 2022-04-03 13:43:00 16 /min [facility] Oxygen saturation in Arterial blood by Pulse oximetry 2022-04-03 13:43:00 100 /min [facility] Body height 2022-04-01 06:15:00 157.5 cm [facility] Body weight 2022-04-01 06:15:00 105.597 kg [facility] BMI 2022-04-01 06:15:00 42.58 kg/m2 [facility] Systolic blood pressure 2022-04-03 13:45:00 130 mm[Hg] [facility] Diastolic blood pressure 2022-04-03 13:45:00 77 mm[Hg] [facility] Heart rate 2022-04-03 13:43:00 93 /min [facility] Body temperature 2022-04-03 13:43:00 36.94 [facility] Respiratory rate 2022-04-03 13:43:00 16 /min [facility] Oxygen saturation in Arterial blood by Pulse oximetry 2022-04-03 13:43:00 100 /min [facility] Body height 2022-04-01 06:15:00 157.5 cm [facility] Body weight 2022-04-01 06:15:00 105.597 kg [facility] BMI 2022-04-01 06:15:00 42.58 kg/m2 [facility] Respiratory rate 2022-04-02 02:05:00 21 /min [facility] Systolic blood pressure 2022-03-30 15:59:00 127 mm[Hg] [facility] Diastolic blood pressure 2022-03-30 15:59:00 83 mm[Hg] [facility] Heart rate 2022-03-30 15:59:00 72 /min [facility] Body temperature 2022-03-30 15:59:00 36.67 [facility] Respiratory rate 2022-03-30 15:59:00 18 /min [facility] Body height 2022-03-30 15:59:00 157.5 cm [facility] Body weight 2022-03-30 15:59:00 106.595 kg [facility] BMI 2022-03-30 15:59:00 42.98 kg/m2 [facility] Systolic blood pressure 2022-03-23 15:20:00 125 mm[Hg] [facility] Diastolic blood pressure 2022-03-23 15:20:00 85 mm[Hg] [facility] Heart rate 2022-03-23 15:20:00 90 /min [facility] Body temperature 2022-03-23 15:20:00 36.44 [facility] Body height 2022-03-23 15:20:00 157.5 cm [facility] Body weight 2022-03-23 15:20:00 105.96 kg [facility] BMI 2022-03-23 15:20:00 42.73 kg/m2 [facility] Systolic blood pressure 2022-03-16 15:52:00 131 mm[Hg] [facility] Diastolic blood pressure 2022-03-16 15:52:00 82 mm[Hg] [facility] Heart rate 2022-03-16 15:52:00 69 /min [facility] Body temperature 2022-03-16 15:52:00 36.56 [facility] Respiratory rate 2022-03-16 15:52:00 18 /min [facility] Body height 2022-03-16 15:52:00 157.5 cm [facility] Body weight 2022-03-16 15:52:00 105.688 kg [facility] BMI 2022-03-16 15:52:00 42.62 kg/m2 [facility] Systolic blood pressure 2022-03-09 16:55:00 119 mm[Hg] [facility] Diastolic blood pressure 2022-03-09 16:55:00 80 mm[Hg] [facility] Heart rate 2022-03-09 16:55:00 74 /min [facility] Body temperature 2022-03-09 16:55:00 36.67 [facility] Respiratory rate 2022-03-09 16:55:00 16 /min [facility] Body height 2022-03-09 16:55:00 157.5 cm [facility] Body weight 2022-03-09 16:55:00 102.604 kg [facility] BMI 2022-03-09 16:55:00 41.37 kg/m2 [facility] Oxygen saturation in Arterial blood by Pulse oximetry 2022-03-09 16:55:00 100 /min [facility] Systolic blood pressure 2022-02-23 19:26:00 116 mm[Hg] [facility] Diastolic blood pressure 2022-02-23 19:26:00 78 mm[Hg] [facility] Heart rate 2022-02-23 19:26:00 89 /min [facility] Body temperature 2022-02-23 19:26:00 36.78 [facility] Respiratory rate 2022-02-23 19:26:00 18 /min [facility] Body height 2022-02-23 19:26:00 157.5 cm [facility] Body weight 2022-02-23 19:26:00 102.059 kg [facility] BMI 2022-02-23 19:26:00 41.15 kg/m2 [facility] Systolic blood pressure 2022-02-09 16:04:00 115 mm[Hg] [facility] Diastolic blood pressure 2022-02-09 16:04:00 78 mm[Hg] [facility] Heart rate 2022-02-09 16:04:00 85 /min Un[facility] Respiratory rate 2022-02-09 16:04:00 19 /min [facility] Body height 2022-02-09 16:04:00 157.5 cm [facility] Body weight 2022-02-09 16:04:00 101.606 kg [facility] BMI 2022-02-09 16:04:00 40.97 kg/m2 [facility] Oxygen saturation in Arterial blood by Pulse oximetry 2022-02-09 16:04:00 98 /min [facility] Systolic blood pressure 2022-01-27 15:21:00 119 mm[Hg] [facility] Diastolic blood pressure 2022-01-27 15:21:00 78 mm[Hg] [facility] Heart rate 2022-01-27 15:21:00 90 /min [facility] Body temperature 2022-01-27 15:21:00 36.72 Terrie [facility] Respiratory rate 2022-01-27 15:21:00 18 /min [facility] Body height 2022-01-27 15:21:00 157.5 cm [facility] Body weight 2022-01-27 15:21:00 100.699 kg [facility] BMI 2022-01-27 15:21:00 40.60 kg/m2 [facility] Systolic blood pressure 2022-01-13 19:14:00 115 mm[Hg] [facility] Diastolic blood pressure 2022-01-13 19:14:00 74 mm[Hg] [facility] Heart rate 2022-01-13 19:14:00 77 /min [facility] Body temperature 2022-01-13 19:14:00 36.94 Terrie [facility] Respiratory rate 2022-01-13 19:14:00 16 /min [facility] Body height 2022-01-13 19:14:00 156.2 cm [facility] Body weight 2022-01-13 19:14:00 100.245 kg [facility] BMI 2022-01-13 19:14:00 41.08 kg/m2 [facility] Oxygen saturation in Arterial blood by Pulse oximetry 2022-01-13 19:14:00 100 /min [facility] Systolic blood pressure 2022-01-13 16:10:00 115 mm[Hg] [facility] Diastolic blood pressure 2022-01-13 16:10:00 78 mm[Hg] [facility] Heart rate 2022-01-13 16:10:00 80 /min [facility] Body temperature 2022-01-13 16:10:00 36.78 Terrie [facility] Respiratory rate 2022-01-13 16:10:00 18 /min [facility] Body height 2022-01-13 16:10:00 156.2 cm [facility] Body weight 2022-01-13 16:10:00 100.245 kg [facility] BMI 2022-01-13 16:10:00 41.08 kg/m2 [facility] Procedures Procedure Date / Time Performed Performing Clinician Source CBC (INCLUDES DIFF/PLT)-Q 2022-05-10 17:44:00 Tootie Wells [facility] HB -MATERNAL HEMORRHAGE SCREEN 2022-04-02 09:56:00 Adum, Niecy Melgoza [facility] HB -MATERNAL HEMORRHAGE SCREEN 2022-04-02 09:56:00 Adum, Niecy Melgoza [facility] CBC WITH DIFF 2022-04-02 09:55:00 Adum, Niecy Gallowaye [facility] CBC WITH DIFF 2022-04-02 09:55:00 [facility] CENTRAL NEURAXIAL BLOCK 2022-04-01 20:59:27 Sher Gusman [facility] ABORH CONFIRMATION (LAB ONLY) 2022-04-01 08:27:00 Adum, Niecy Melgoza [facility] ABORH CONFIRMATION (LAB ONLY) 2022-04-01 08:27:00 Adum, Niecy Melgoza [facility] CBC WITH DIFF 2022-04-01 06:39:00 Adum, Niecy Mejia [facility] HEPATITIS B SURFACE ANTIGEN 2022-04-01 06:39:00 Adum, Niecy Melgoza [facility] ADC OR MIRIAN ONLY - RPR 2022-04-01 06:39:00 Adum, Niecy Melgoza [facility] HIV 1/2 AG-AB WITH REFLEX 2022-04-01 06:39:00 Adum, Niecy Melgoza [facility] CBC WITH DIFF 2022-04-01 06:39:00 Adum, Niecy Gallowaye [facility] HEPATITIS B SURFACE ANTIGEN 2022-04-01 06:39:00 Adum, Niecy Melgoza [facility] ADC OR MIRIAN ONLY - RPR 2022-04-01 06:39:00 Adum, Niecy Rhona [facility] HIV 1/2 AG-AB WITH REFLEX 2022-04-01 06:39:00 Adum, Niecy Rhona [facility] HB ABO GROUPING 2022-04-01 06:15:00 Adum, Niecy Rhona [facility] RHO (D) IMMUNE GLOBULIN 2022-04-01 06:15:00 Adum, Lindsey adams Rhona [facility] HB ABO GROUPING 2022-04-01 06:15:00 Adum, Niecy Melgoza [facility] RHO (D) IMMUNE GLOBULIN 2022-04-01 06:15:00 Adum, Lindsey adams Rhona [facility] HOSPITAL ADMISSION 2022-04-01 06:01:00 Doctor Un assigned, Nichols [facility] >14 WEEKS US LIMITED 2022-03-30 16:39:32 Adum, Niecy Rhona [facility] POCT URINALYSIS W/O SPECIFIC GRAVITY 2022-03-30 00:00:00 Adum, Niecy Melgoza [facility] ASSIGNMENT OF BENEFITS 2022-03-25 13:58:42 Docto r Unassigned, Nichols [facility] POCT URINALYSIS W/O SPECIFIC GRAVITY 2022-03-23 00:00:00 Adum, Niecy Melgoza [facility] POCT URINALYSIS W/O SPECIFIC GRAVITY 2022-03-16 00:00:00 Adum, Niecy L [facility] POCT URINALYSIS W/O SPECIFIC GRAVITY 2022-03-09 00:00:00 Tootie Wells [facility] CBC (H/H, RBC, INDICES,$WBC, PLT)-Q 2022-03-07 15:04:00 Adum, Niecy Melgoza [facility] FLU VACC ([id number]), 6 MO-64 YRS, .5ML, IM, QUAD (FLUCELVAX) 2022-02-23 20:26:07 Adum, Niecy Melgoza [facility] POCT URINALYSIS W/O SPECIFIC GRAVITY 2022-02-23 00:00:00 Adum, Niecy Melgoza [facility] POCT URINALYSIS W/O SPECIFIC GRAVITY 2022-02-09 16:06:00 Tootie Wells [facility] POCT URINALYSIS W/O SPECIFIC GRAVITY 2022-01-27 00:00:00 Faizan Anirudh [facility] ABO GROUP AND RH TYPE-Q 2022-01-13 18:37:00 Regino Gloria [facility] TDAP VACCINE, >11 YRS, IM 2022-01-13 16:12:18 Faizan Anirudh [facility] POCT URINALYSIS W/O SPECIFIC GRAVITY 2022-01-13 00:00:00 Faizan [facility] SECTION AdNiecy cowan [facility] Encounters Start Date/Time End Date/Time Encounter Type Admission Type Attending [facility] Facility Care Department Encounter ID Source 2023-03-19 00:00:00 2023-03-19 00:00:00 Outpatient GC_GCBZW_Ka chrisyala_S [facility] [id number] [facility] 2022-05-11 13:00:00 2022-05-11 13:27:43 Outpatient R NIECY ANDERSON [facility] [id number] [facility] 2022-05-11 13:00:00 2022-05-11 13:27:43 Routine Visit Niecy Anderson [facility] 1.114 350.1.13.10 4.2.7.2.686 [id number] 134 [id number] [facility] 2022-05-10 00:00:00 2022-05-10 00:00:00 Orders Only Tootie Wells [facility] 1..114 350.1.13.10 4.2.7.2.686 [id number] [id number] [facility] 2022-05-09 00:00:00 2022-05-09 00:00:00 Telephone AdNiecy cowan [facility] 1.0.114 350.1.13.10 4.2.7.2.686 [id number] 134 [id number] [facility] 2022-04-20 15:00:00 2022-04-20 16:19:32 Outpatient R NIECY ANDERSON [facility] [id number] [facility] 2022-04-20 15:00:00 2022-04-20 16:19:32 Routine Visit AlbertNiecy cowan [facility][1] 1.2.840.114 350.1.13.10 4.2.7.2.686 [id number] 134 [id number] [facility] 2022-04-08 09:00:00 2022-04-08 09:14:49 Nurse Visit FélixTootie marx [facility][1] 1.2840.114 350.1.13.10 4.2.7.2.686 [id number] 134 [id number] [facility] 2022-04-08 09:00:00 2022-04-08 09:00:00 Outpatient R TOOTIE WELLS CHERYAL [facility] [id number] [facility] 2022-04-01 00:02:00 2022-04-03 12:40:00 Inpatient P NIECY ANDERSON [facility] [id number] [facility] 2022-04-01 00:02:00 2022-04-03 12:40:00 Hospital Encounter AdNiecy cowan [facility] 1.2840.114 350.1.13.10 4.2.7.2.686 [id number] [facility] 2022-04-01 00:00:00 2022-04-03 00:00:00 Surgery AdNiecy cowan [facility] 1.2840.114 350.1.13.10 4.2.7.2.686 [id number] 013 [id number] [facility] 2022-04-02 20:03:11 2022-04-02 20:03:11 Anesthesia Event Zach Hernandez [facility] 1.2.840.114 350.1.13.10 4.2.7.2.686 [id number] 083 [id number] [facility] 2022-04-01 14:09:00 2022-04-01 20:15:00 Anesthesia Event Sonya Gusman Stacey [facility] 1.2.840.114 350.1.13.10 4.2.7.2.686 [id number] [id number] [facility] 2022-04-01 00:00:00 2022-04-01 00:00:00 Orders Only Doctor Unassigned, Nichols [facility] 1.2.840.114 350.1.13.10 4.2.7.2.686 [id number] [id number] [facility] 2022-03-30 10:00:00 2022-03-30 10:41:22 [id number] 2022-03-30 10:00:00 2022-03-30 10:41:[address] [facility] 1.2840.114 350.1.13.10 4.2.7.2.686 [id number] 134 [id number] [facility] 2022-03-25 00:00:00 2022-03-25 00:00:00 Orders Only Doctor Unassigned, Nichols [facility] 1.2.840.114 350.1.13.10 4.2.7.2.686 [id number] [id number] [facility] 2022-03-23 10:15:00 2022-03-23 10:48:56 [facility] [id number] [facility] 2022-03-23 10:15:00 2022-03-23 10:48:56 Routine Visit Adum, Niecy [facility] 1.2.840.114 350.1.13.10 4.2.7.2.686 [id number] 134 [id number] [facility] 2022-03-16 10:45:00 2022-03-16 11:17:34 Outpatient R [facility] [id number] [facility] 2022-03-16 10:45:00 2022-03-16 11:17:34 [facility] 1.2.840.114 350.1.13.10 4.2.7.2.686 [id number] 134 [id number] [facility] 2022-03-09 11:15:00 2022-03-09 12:14:12 Outpatient R [facility]UM [facility] [id number] [facility] 2022-03-09 11:15:00 2022-03-09 12:14:12 Routine Visit Ad, [facility] 1.2.840.114 350.1.13.10 4.2.7.2.686 [id number] 134 [id number] [facility] 2022-03-07 00:00:00 2022-03-07 00:00:00 [facility] 1.2.840.114 350.1.13.10 4.2.7.2.686 [id number] [id number] [facility] 2022-02-23 14:30:00 2022-02-23 15:21:09 Outpatient R [facility] [id number] [facility] 2022-02-23 14:30:00 2022-02-23 15:21:09 Routine Visit Ad, [facility] 1.2.840.114 350.1.13.10 4.2.7.2.686 [id number] 134 [id number] [facility] 2022-02-21 00:00:00 2022-02-21 00:00:00 Telephone FélixTootie marx [facility] 1.2840.114 350.1.13.10 4.2.7.2.686 [id number] 134 [id number] [facility] 2022-02-09 11:15:00 2022-02-09 11:21:33 Outpatient R NIECY ANDERSON [facility] [id number] [facility] 2022-02-09 11:15:00 2022-02-09 11:21:33 Routine Visit FélixTootie marx Niecy Anderson [facility][1] 1.840.114 350.1.13.10 4.2.7.2.686 [id number] 134 [id number] [facility] 2022-01-27 10:00:00 2022-01-27 10:47:55 Outpatient R ANIRUDH GLORIA [facility] [id number] [facility] 2022-01-27 10:00:00 2022-01-27 10:47:55 Routine Visit [facility] Anirudh [facility][1] 1.2.840.114 350.1.13.10 4.2.7.2.686 [id number] 134 [id number] [facility] 2022-01-13 15:00:00 2022-01-13 15:00:00 Nurse Visit Nurse, [facility] 1.840.114 350.1.13.10 4.2.7.2.686 [id number] 134 [id number] [facility] 2022-01-13 15:00:00 2022-01-13 14:13:55 Outpatient R ANIRUDH GLORIA [facility] [id number] [facility] 2022-01-13 10:45:00 2022-01-13 11:47:50 Outpatient R ANIRUDH GLORIA [facility] [id number] [facility] 2022-01-13 10:45:00 2022-01-13 11:47:50 Routine Visit Faizan Anirudh [facility][1] 1.2840.114 350.1.13.10 4.2.7.2.686 [id number] 134 [id number] [facility] 2022-01-13 00:00:00 2022-01-13 00:00:00 Orders Only Faizan [facility] 1.2840.114 350.1.13.10 4.2.7.2.686 [id number] [id number] [facility] 2022-01-11 10:45:00 2022-01-11 11:30:00 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, [facility] Deepak Pardo [facility] 1.0.114 350.1.13.10 4.2.7.2.686 [id number] [facility] 2022-01-11 10:45:00 2022-01-11 10:45:00 Outpatient P DEEPAK PARDO [facility] [id number] [facility] 2021-12-24 00:00:00 2021-12-24 00:00:00 Orders Only Faizan [facility] 1.20.114 350.1.13.10 4.2.7.2.686 [id number] [id number] [facility] 2021-12-16 10:00:00 2021-12-16 11:22:31 Outpatient R [facility] [id number] [facility] 2021-12-16 10:00:00 2021-12-16 11:22:31 Routine Visit Faizan Anirudh [facility][1] 1.20.114 350.1.13.10 4.2.7.2.686 [id number] 134 [id number] [facility] 2021-12-16 10:00:00 2021-12-16 10:00:00 Outpatient R ANIRUDH GLORIA [facility] [id number] [facility] 2021-12-16 00:00:00 2021-12-16 00:00:00 Letter (Out) Faizan Anirudh [facility][1] 1.2.840.114 350.1.13.10 4.2.7.2.686 [id number] 134 [id number] [facility] 2021-12-16 00:00:00 2021-12-16 00:00:00 Telephone Faizan Anirudh [facility][1] 1.2.840.114 350.1.13.10 4.2.7.2.686 [id number] 134 [id number] [facility] 2021-11-18 14:45:00 2021-11-18 16:00:00 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, Kevin-Carla Ray [facility] [employer] [facility] 1.2840.114 350.1.13.10 4.2.7.2.686 [id number] [facility] 2021-11-18 14:45:00 2021-11-18 14:45:00 Outpatient CARLA KHALIL [facility] [id number] [facility] 2021-11-18 00:00:00 2021-11-18 00:00:00 Telephone Faizan Anirudh [facility] 1.2.840.114 350.1.13.10 4.2.7.2.686 [id number] 134 [id number] [facility] 2021-11-17 16:30:00 2021-11-17 17:05:03 Routine Visit Tootie Wells [facility] 1.2.840.114 350.1.13.10 4.2.7.2.686 [id number] 134 [id number] [facility] 2021-11-17 16:30:00 2021-11-17 17:05:03 Outpatient R TOOTIE WELLS CHERYAL [facility] [id number] [facility] 2021-11-17 16:30:00 2021-11-17 16:30:00 Outpatient R TOOTIE WELLS CHERYAL [facility] [id number] [facility] 2021-11-17 00:00:00 2021-11-17 00:00:00 Letter (Out) Tootie Wells [facility][1] 1.0.114 350.1.13.10 4.2.7.2.686 [id number] 134 [id number] [facility] 2021-11-10 14:00:00 2021-11-10 14:00:00 Outpatient R TOOTIE WELLS CHERYAL [facility] [id number] [facility] 2021-10-19 10:15:00 2021-10-19 10:15:00 Outpatient R ANIRUDH GLORIA [facility] [id number] [facility] 2021-10-19 00:00:00 2021-10-19 00:00:00 Orders Only Anirudh Gloria [facility] 1..114 350.1.13.10 4.2.7.2.686 [id number] [facility] 2021-10-14 08:15:00 2021-10-14 08:56:30 Routine Visit Anirudh Gloria [facility][1] 1..114 350.1.13.10 4.2.7.2.686 [id number] 134 [id number] [facility] 2021-10-14 08:15:00 2021-10-14 08:56:30 Outpatient R ANIRUDH GLORIA [facility] [id number] [facility] 2021-10-14 00:00:00 2021-10-14 00:00:00 Letter (Out) Doctor Unassigned, Nichols [facility] 1.2.840.114 350.1.13.10 4.2.7.2.686 [id number] [facility] 2021-10-14 00:00:00 2021-10-14 00:00:00 Letter (Out) Doctor Unassigned, Nichols [facility] 1.2.840.114 350.1.13.10 4.2.7.2.686 [id number] [facility] 2021-09-15 09:00:00 2021-09-15 09:40:03 Out[facility] [id number] [facility] 2021-09-15 09:00:00 2021-09-15 09:40:03 Routine Visit Tootie Wells [facility][1] 1.840.114 350.1.13.10 4.2.7.2.686 [id number] 134 [id number] [facility] 2021-08-16 08:30:00 2021-08-16 09:40:59 Outpatient R ANIRUDH GLORIA [facility] [id number] [facility] 2021-08-16 08:30:00 2021-08-16 09:40:59 Initial Visit Anirudh Gloria [facility][1] 1.2840.114 350.1.13.10 4.2.7.2.686 [id number] 134 [id number] [facility] 2021-08-16 00:00:00 2021-08-16 00:00:00 Orders Only Doctor Unassigned, Nichols [facility] 1.2.840.114 350.1.13.10 4.2.7.2.686 [id number] [id number] [facility] Results Test Description Test Time Test Comments Results Result Co mments Source [facility] MATERNAL HEMO [id number] 12:04:55 * Test Item Value Reference Range Interpretation Comme nts SCREEN (test code = 846) Negative Performed at [facility] Blood [place] [address]Toll Free: [phone] No. [id number] RHIG REQUIRED? (test code = 1747) [address] [facility] [place] [address]Toll Free: [phone] No. [id number] [facility] MATERNAL HEMO [id number] 12:04:55 * Test Item Value Reference Range Interpretation Comme nts SCREEN (test code = 846) Negative Performed at [facility] [place] [address]Toll Free: [phone] No. [id number] RHIG REQUIRED? (test code = 1747) [address] [facility] [place] [address]Toll Free: [phone] No. [id number] [facility] (D) IMMUNE [id number] 11:52:32* Test Item Value Reference Range Interpretation Comme nts RHIG CANDIDATE? (test code = 5055) No- see comment Patient is not a candidate for RhIg- Patient is Rh Negative and baby is Rh Negative.Performed at [facility] Blood [place] [address]Toll Free: [phone] No. [id number] [facility] (D) IMMUNE [id number] 11:52:32* Test Item Value Reference Range Interpretation Comme nts RHIG CANDIDATE? (test code = 5055) No- see comment Patient is not a candidate for RhIg- Patient is Rh Negative and baby is Rh Negative.Performed at [facility] Blood [address]Toll Free: [phone] No. [id number] [facility] with Uqgtsebspawd9292-11-24 11:43:15* Test Item Value Reference Range Interpretation Comme nts WBC (test code = 6690-2) See_Comment H [Automated message] The system which generated this result transmitted reference range: 4.30 - 11.10 10*3/?L. The reference range was not used to interpret this result as normal/abnormal. RBC (test code = 789-8) See_Comment [Automated message] The system which generated this result transmitted reference range: 3.93 - 5.25 10*6/?L. The reference range was not used to interpret this result as normal/abnormal. HGB (test code = 718-7) 10.4 g/dL 11.6-15.0 L HCT (test code = 4544-3) 32.2 % 35.7-45.2 L MCV (test code = 787-2) 80.9 fL 80.6-95.5 MCH (test code = 785-6) 26.1 pg 25.9-32.8 MCHC (test code = 786-4) 32.3 g/dL 31.6-35.1 RDW-SD (test code = 90976-4) 40.1 fL 39.0-49.9 RDW-CV (test code = 788-0) 13.8 % 12.0-15.5 PLT (test code = 777-3) See_Comment [Automated message] The system which generated this result transmitted reference range: 166 - 358 10*3/?L. The reference range was not used to interpret this result as normal/abnormal. MPV (test code = 98444-8) 11.9 fL 9.5-12.9 NRBC/100 WBC (test code = 0800523130) See_Comment [Automated message] The system which generated this result transmitted reference range: 0.0 - 10.0 /100 WBCs. The reference range was not used to interpret this result as normal/abnormal. NRBC x10^3 (test code = 8355506278) See_Comment [Automated message] The system which generated this result transmitted reference range: 10*3/?L. The reference range was not used to interpret this result as normal/abnormal. GRAN MAT (NEUT) % (test code = 770-8) 85.0 % IMM GRAN % (test code = 7122799390) 0.50 % LYMPH % (test code = 736-9) 6.9 % MONO % (test code = 5905-5) 7.5 % EOS % (test code = 713-8) 0.0 % BASO % (test code = 706-2) 0.1 % GRAN MAT x10^3(ANC) (test code = 8009641327) 19.10 10*3/uL 1.88-7.09 H IMM GRAN x10^3 (test code = 5559190582) 0.12 10*3/uL 0.00-0.06 H LYMPH x10^3 (test code = 731-0) 1.54 10*3/uL 1.32-3.29 MONO x10^3 (test code = 742-7) 1.69 10*3/uL 0.33-0.92 H EOS x10^3 (test code = 711-2) 0.03-0.39 L BASO x10^3 (test code = 704-7) 0.03 10*3/uL 0.01-0.07 Lab Interpretation (test code = 77098-3) Abnormal [facility] with Pdlgmhopascv2666-24-03 11:43:15* Test Item Value Reference Range Interpretation Comme nts WBC (test code = 6690-2) See_Comment H [Automated message] The system which generated this result transmitted reference range: 4.30 - 11.10 10*3/?L. The reference range was not used to interpret this result as normal/abnormal. RBC (test code = 789-8) See_Comment [Automated message] The system which generated this result transmitted reference range: 3.93 - 5.25 10*6/?L. The reference range was not used to interpret this result as normal/abnormal. HGB (test code = 718-7) 10.4 g/dL 11.6-15.0 L HCT (test code = 4544-3) 32.2 % 35.7-45.2 L MCV (test code = 787-2) 80.9 fL 80.6-95.5 MCH (test code = 785-6) 26.1 pg 25.9-32.8 MCHC (test code = 786-4) 32.3 g/dL 31.6-35.1 RDW-SD (test code = 14983-8) 40.1 fL 39.0-49.9 RDW-CV (test code = 788-0) 13.8 % 12.0-15.5 PLT (test code = 777-3) See_Comment [Automated message] The system which generated this result transmitted reference range: 166 - 358 10*3/?L. The reference range was not used to interpret this result as normal/abnormal. MPV (test code = 08263-4) 11.9 fL 9.5-12.9 NRBC/100 WBC (test code = 9344258905) See_Comment [Automated message] The system which generated this result transmitted reference range: 0.0 - 10.0 /100 WBCs. The reference range was not used to interpret this result as normal/abnormal. NRBC x10^3 (test code = [id number]) See_Comment [Automated message] The system which generated this result transmitted reference range: 10*3/?L. The reference range was not used to interpret this result as normal/abnormal. GRAN MAT (NEUT) % (test code = 770-8) 85.0 % IMM GRAN % (test code = [id number]) 0.50 % LYMPH % (test code = 736-9) 6.9 % MONO % (test code = 5905-5) 7.5 % EOS % (test code = 713-8) 0.0 % BASO % (test code = 706-2) 0.1 % GRAN MAT x10^3(ANC) (test code = [id number]) 19.10 10*3/uL 1.88-7.09 H IMM GRAN x10^3 (test code = [id number]) 0.12 10*3/uL 0.00-0.06 H LYMPH x10^3 (test code = 731-0) 1.54 10*3/uL 1.32-3.29 MONO x10^3 (test code = 742-7) 1.69 10*3/uL 0.33-0.92 H EOS x10^3 (test code = 711-2) 0.03-0.39 L BASO x10^3 (test code = 704-7) 0.03 10*3/uL 0.01-0.07 Lab Interpretation (test code = 08111-1) Abnormal [facility] [facility] B Surface [id number] 15:58:55 * Test Item Value Reference Range Interpretation Comme nts HBsAg Semi-Quantitative (margaret t code = 5195-3) Negative Negative [facility] B Surface [id number] 15:58:55 * Test Item Value Reference Range Interpretation Comme nts HBsAg Semi-Quantitative (margaret t code = 5195-3) Negative Negative [facility] WITH [id number] 09:10:23* Test Item Value Reference Range Interpretation Comme nts HIV Semi-quantitative (test code = 95937-3) Negative Negative GARDENIA (test code = GARDENIA) Non-reactive for HIV-1 antigen and HIV-1/HIV-2 antibodies. ?No laboratory evidence of HIV infection. ?Repeat in 2-4 weeks if acute HIV infection is suspected. [facility] WITH [id number] 09:10:23* Test Item Value Reference Range Interpretation Comme nts HIV Semi-quantitative (test code = 51534-6) Negative Negative GARDENIA (test code = GARDENIA) Non-reactive for HIV-1 antigen and HIV-1/HIV-2 antibodies. ?No laboratory evidence of HIV infection. ?Repeat in 2-4 weeks if acute HIV infection is suspected. [facility] Conf[facility] (Lab Only)2022-04-01 09:06:23* Test Item Value Reference Range Interpretation Comme nts ABO & RH (test code = 20) O Negative Performed at [facility] Laboratory Services - [facility] Blood [address] [place] [phone] Free: [phone] No. [id number] [facility] Confirmation (Lab Only)2022-04-01 09:06:23* Test Item Value Reference Range Interpretation Comme nts ABO & RH (test code = 20) O Negative Performed at [facility] Laboratory Services [facility] Blood [place] [address]Toll Free: [phone] No. [id number] [facility] and Screen - ONCE [id number] 08:13:32 * Test Item Value Reference Range Interpretation Comme nts ABO & RH (test code = 20) O Negative Performed at [facility] Laboratory [facility] Blood [place] [address]Toll Free: [phone] No. [id number] IAT (test code = 1185) Negative Performed at [facility] Laboratory [facility] Blood [place] [address]Toll Free: [phone] No. [id number] [facility] and Screen - ONCE [id number] 08:13:32 * Test Item Value Reference Range Interpretation Comme nts ABO & RH (test code = 20) O Negative Performed at [facility] Laboratory [place] [address]Toll Free: [phone] No. [id number] IAT (test code = 1185) Negative Performed at [place] [address]Toll Free: [phone] No. [id number] [facility] OR MIRIAN ONLY - [id number] 07:31:43* Test Item Value Reference Range Interpretation Comme nts RPR (Qualitative) (test code = 76357-6) Nonreactive Nonreactive Lab Interpretation (test cod e = 24990-1) Normal [facility] OR MIRIAN ONLY - [id number] 07:31:43* Test Item Value Reference Range Interpretation Comme nts RPR (Qualitative) (test code = 52194-4) Nonreactive Nonreactive Lab Interpretation (test cod e = 60785-0) Normal [facility] with [id number] 07:14:09* Test Item Value Reference Range Interpretation Comme nts WBC (test code = 6690-2) See_Comment H [Automated message] The system which generated this result transmitted reference range: 4.30 - 11.10 10*3/?L. The reference range was not used to interpret this result as normal/abnormal. RBC (test code = 789-8) See_Comment [Automated message] The system which generated this result transmitted reference range: 3.93 - 5.25 10*6/?L. The reference range was not used to interpret this result as normal/abnormal. HGB (test code = 718-7) 11.8 g/dL 11.6-15.0 HCT (test code = 4544-3) 36.3 % 35.7-45.2 MCV (test code = 787-2) 80.0 fL 80.6-95.5 L MCH (test code = 785-6) 26.0 pg 25.9-32.8 MCHC (test code = 786-4) 32.5 g/dL 31.6-35.1 RDW-SD (test code = 52097-2) 40.7 fL 39.0-49.9 RDW-CV (test code = 788-0) 14.0 % 12.0-15.5 PLT (test code = 777-3) See_Comment [Automated message] The system which generated this result transmitted reference range: 166 - 358 10*3/?L. The reference range was not used to interpret this result as normal/abnormal. MPV (test code = 25848-4) 11.9 fL 9.5-12.9 NRBC/100 WBC (test code = 5063161302) See_Comment [Automated message] The system which generated this result transmitted reference range: 0.0 - 10.0 /100 WBCs. The reference range was not used to interpret this result as normal/abnormal. NRBC x10^3 (test code = 1936644727) See_Comment [Automated message] The system which generated this result transmitted reference range: 10*3/?L. The reference range was not used to interpret this result as normal/abnormal. GRAN MAT (NEUT) % (test code = 770-8) 72.9 % IMM GRAN % (test code = 9253946325) 0.60 % LYMPH % (test code = 736-9) 17.1 % MONO % (test code = 5905-5) 8.6 % EOS % (test code = 713-8) 0.4 % BASO % (test code = 706-2) 0.4 % GRAN MAT x10^3(ANC) (test code = 7046240468) 10.15 10*3/uL 1.88-7.09 H IMM GRAN x10^3 (test code = 2296797077) 0.08 10*3/uL 0.00-0.06 H LYMPH x10^3 (test code = 731-0) 2.38 10*3/uL 1.32-3.29 MONO x10^3 (test code = 742-7) 1.20 10*3/uL 0.33-0.92 H EOS x10^3 (test code = 711-2) 0.05 10*3/uL 0.03-0.39 BASO x10^3 (test code = 704-7) 0.06 10*3/uL 0.01-0.07 Lab Interpretation (test code = 99207-1) Abnormal [facility] with [id number] 07:14:09* Test Item Value Reference Range Interpretation Comme nts WBC (test code = 6690-2) See_Comment H [Automated message] The system which generated this result transmitted reference range: 4.30 - 11.10 10*3/?L. The reference range was not used to interpret this result as normal/abnormal. RBC (test code = 789-8) See_Comment [Automated message] The system which generated this result transmitted reference range: 3.93 - 5.25 10*6/?L. The reference range was not used to interpret this result as normal/abnormal. HGB (test code = 718-7) 11.8 g/dL 11.6-15.0 HCT (test code = 4544-3) 36.3 % 35.7-45.2 MCV (test code = 787-2) 80.0 fL 80.6-95.5 L MCH (test code = 785-6) 26.0 pg 25.9-32.8 MCHC (test code = 786-4) 32.5 g/dL 31.6-35.1 RDW-SD (test code = 42636-1) 40.7 fL 39.0-49.9 RDW-CV (test code = 788-0) 14.0 % 12.0-15.5 PLT (test code = 777-3) See_Comment [Automated message] The system which generated this result transmitted reference range: 166 - 358 10*3/?L. The reference range was not used to interpret this result as normal/abnormal. MPV (test code = 57996-6) 11.9 fL 9.5-12.9 NRBC/100 WBC (test code = 2160505995) See_Comment [Automated message] The system which generated this result transmitted reference range: 0.0 - 10.0 /100 WBCs. The reference range was not used to interpret this result as normal/abnormal. NRBC x10^3 (test code = 2603826872) See_Comment [Automated message] The system which generated this result transmitted reference range: 10*3/?L. The reference range was not used to interpret this result as normal/abnormal. GRAN MAT (NEUT) % (test code = 770-8) 72.9 % IMM GRAN % (test code = 1654572575) 0.60 % LYMPH % (test code = 736-9) 17.1 % MONO % (test code = 5905-5) 8.6 % EOS % (test code = 713-8) 0.4 % BASO % (test code = 706-2) 0.4 % GRAN MAT x10^3(ANC) (test code = 6301820215) 10.15 10*3/uL 1.88-7.09 H IMM GRAN x10^3 (test code = 4615085053) 0.08 10*3/uL 0.00-0.06 H LYMPH x10^3 (test code = 731-0) 2.38 10*3/uL 1.32-3.29 MONO x10^3 (test code = 742-7) 1.20 10*3/uL 0.33-0.92 H EOS x10^3 (test code = 711-2) 0.05 10*3/uL 0.03-0.39 BASO x10^3 (test code = 704-7) 0.06 10*3/uL 0.01-0.07 Lab Interpretation (test code = 39694-5) Abnormal [facility] URINALYSIS W/O SPECIFIC [id number] 16:01:00* Test Item Value Reference Range Interpretation Comme nts POCT PH U (test code = 3254) N/A 5-8 POCT U LEUK EST (test code = 3263) N/A Negative - Negative POCT U NIT (test code = 3262) N/A Negative - Negati ve POCT U PROT (test code = 3259) Negative Negative - Negat tariq POCT U GLU (test code = 3256) Negative Negative - Negati ve POCT U KETONE (test code = 3258) N/A Negative - Neg ative POCT U BLD (test code = 3257) N/A Negative - Negati ve [facility] URINALYSIS W/O SPECIFIC [id number] 15:17:00* Test Item Value Reference Range Interpretation Comme nts POCT PH U (test code = 3254) n/a 5-8 POCT U LEUK EST (test code = 3263) n/a Negative - Negative POCT U NIT (test code = 3262) n/a Negative - Negati ve POCT U PROT (test code = 3259) Negative Negative - Negat tariq POCT U GLU (test code = 3256) Normal Negative - Negati ve POCT U KETONE (test code = 3258) n/a Negative - Neg ative POCT U BLD (test code = 3257) n/a Negative - Negati ve [facility] URINALYSIS W/O SPECIFIC [id number] 15:55:00* Test Item Value Reference Range Interpretation Comme nts POCT PH U (test code = 3254) N/A 5-8 POCT U LEUK EST (test code = 3263) N/A Negative - Negative POCT U NIT (test code = 3262) N/A Negative - Negati ve POCT U PROT (test code = 3259) Trace Negative - Negat tariq POCT U GLU (test code = 3256) Negative Negative - Negati ve POCT U KETONE (test code = 3258) N/A Negative - Neg ative POCT U BLD (test code = 3257) N/A Negative - Negati ve [facility] [id number] 17:10:00* Test Item Value Reference Range Interpretation Comme nts POCT PH U (test code = 3254) n/a 5-8 POCT U LEUK EST (test code = 3263) n/a Negative - Negative POCT U NIT (test code = 3262) n/a Negative - Negati ve POCT U PROT (test code = 3259) trace Negative - Negat tariq POCT U GLU (test code = 3256) negative Negative - Negati ve POCT U KETONE (test code = 3258) n/a Negative - Neg ative POCT U BLD (test code = 3257) n/a Negative - Negati ve [facility] ([facility]/H, RBC, INDICES,$WBC, PLT)-[id number] 01:00:00* Test Item Value Reference Range Interpretation Comme nts WHITE BLOOD CELL COUNT-Q (test code = 6690-2) See_Comment H [Automated message] The system which generated this result transmitted reference range: 3.8 - 10.8 Thousand/uL. The reference range was not used to interpret this result as normal/abnormal. RED BLOOD CELL COUNT-Q (test code = 789-8) See_Comment [Automated message] The system which generated this result transmitted reference range: 3.80 - 5.10 Million/uL. The reference range was not used to interpret this result as normal/abnormal. HEMOGLOBIN-Q (test code = 718-7) 11.4 g/dL 11.7-15.5 L HEMATOCRIT-Q (test code = 4544-3) 36.5 % 35-45 MCV-Q (test code = 787-2) 82 fL 80-100 MCH-Q (test code = 785-6) 25.6 pg 27-33 L MCHC-Q (test code = 786-4) 31.2 g/dL 32-36 L RDW-Q (test code = 788-0) 12.9 % 11-15 PLATELET COUNT-Q (test code = 777-3) See_Comment [Automated message] The system which generated this result transmitted reference range: 140 - 400 Thousand/uL. The reference range was not used to interpret this result as normal/abnormal. MPV-Q (test code = 776-5) 11.5 fL 7.5-12.5 GARDENIA (test code = GARDENIA) PERFORMED BY [employer]; [address] [place] [address]; WIL ROMERO MD Lab Interpretation (test code = 40089-8) Abnormal [facility] URINALYSIS W/O SPECIFIC [id number] 19:35:00* Test Item Value Reference Range Interpretation Comme nts POCT PH U (test code = 3254) N/A 5-8 POCT U LEUK EST (test code = 3263) N/A Negative - Negative POCT U NIT (test code = 3262) N/A Negative - Negati ve POCT U PROT (test code = 3259) Trace Negative - Negat tariq POCT U GLU (test code = 3256) Negative Negative - Negati ve POCT U KETONE (test code = 3258) N/A Negative - Neg ative POCT U BLD (test code = 3257) N/A Negative - Negati ve [facility] URINALYSIS W/O SPECIFIC [id number] 16:09:00* Test Item Value Reference Range Interpretation Comme nts POCT PH U (test code = 3254) n/a 5-8 POCT U LEUK EST (test code = 3263) n/a Negative - Negative POCT U NIT (test code = 3262) n/a Negative - Negati ve POCT U PROT (test code = 3259) negative Negative - Negat tariq POCT U GLU (test code = 3256) negative Negative - Negati ve POCT U KETONE (test code = 3258) n/a Negative - Neg ative POCT U BLD (test code = 3257) n/a Negative - Negati ve Lab Interpretation (test cod e = 84652-6) Normal [facility] URINALYSIS W/O SPECIFIC [id number] 15:30:00* Test Item Value Reference Range Interpretation Comme nts POCT PH U (test code = 3254) N/A 5-8 POCT U LEUK EST (test code = 3263) N/A Negative - Negative POCT U NIT (test code = 3262) N/A Negative - Negati ve POCT U PROT (test code = 3259) Negative Negative - Negat tariq POCT U GLU (test code = 3256) Negative Negative - Negati ve POCT U KETONE (test code = 3258) N/A Negative - Neg ative POCT U BLD (test code = 3257) N/A Negative - Negati ve [facility] [id number] 23:00:00* Test Item Value Reference Range Interpretation Comme nts ABO GROUP-Q (test code = 883-9) O RH TYPE-Q (test code = 40403-2) RH(D) NEGATIVE For additional information, please refer to http://education.iRatess.Talentag/fa q/EYD895 (This link is being provided for informational/educat ional purposes only.) REPORT COMMENT:FASTING:NO GARDENIA (test code = GARDENIA) [facility]FOR[facility] BY [facility]; [address] [place] [address]. [place] [address]; WIL ROMERO MD [facility] W/O SPECIFIC [id number] 16:17:00* Test Item Value Reference Range Interpretation Comme nts POCT PH U (test code = 3254) N/A 5-8 POCT U LEUK EST (test code = 3263) N/A Negative - Negative POCT U NIT (test code = 3262) N/A Negative - Negati ve POCT U PROT (test code = 3259) Negative Negative - Negat tariq POCT U GLU (test code = 3256) Negative Negative - Negati ve POCT U KETONE (test code = 3258) N/A Negative - Neg ative POCT U BLD (test code = 3257) N/A Negative - Negati ve [facility]
[2023-05-04 20:33] LABS: Urine Bacteria None Seen /HPF (<20); Urine Bilirubin NEGATIVE (Negative); Urine Blood Negative (Negative); Urine Clarity Clear (Clear); Urine Color Light-Yellow (Yellow); Urine Glucose NEGATIVE (Negative); Urine Mucus 1+ /HPF (None Seen); Urine Protein TRACE (Negative); Urine RBC <5 /HPF (None Seen); Urine Urobilinogen Normal (Normal); Urine pH 5.5 (5.0-7.0)
[2023-05-04 20:39] LABS: Absolute Lymphocytes (CBC) 3.4 K/uL (0.7-4.9); Lymphocytes % 23.5 % (15.3-44.8); MCV 80.7 fL (80-100); MPV 8.7 fL (7.6-11.3); Platelets 250 thou/uL (152-406)
[2023-05-04 21:07] LABS: Potassium 4.1 mEq/L (3.5-5.1)
--- NOTE | 2023-05-04 21:25 | RAD REPORT ---
EXAM DESCRIPTION: US - Transvaginal OB - 05/04/2023 8:55 pm CLINICAL HISTORY: with vaginal bleeding COMPARISON: None FINDINGS: The uterus measures 10 x 5 x 6 centimeters. A gestational sac measuring 1.8 centimeters i s present within the endometrium. Within this is a yolk sac and pole with a crown-rump length 0 .3 centimeters. Cardiac activity 90-96 beats per minute Neither ovary seen secondary to overlying bowel gas The right and left adnexa are unremarkable No significant free fluid is seen. IMPRESSION: Single live intrauterine with an estimated gestational age 6 weeks 2 days CM 12/26/2023 Cardiac activity mildly diminished add 92 to 96 beats per minute
--- NOTE | 2023-05-04 21:39 | EDPHYS ---
Physician Documentation [facility] Name: Theresa Green Age: 23 yrs Sex: Female : 2000 Arrival Date: 05/04/2023 Time: 18:54 Bed DX1 Private MD: ED Physician Everardo Combs HPI: 05/04 20:30 This 23 yrs old Female presents to ER via Ambulatory with complaints of Abdominal rn Cramping, 6 Weeks , Vaginal Bleeding, + Preg <12wks. 20:30 The patient presents to the emergency department with vaginal bleeding, described as rn spotting. The estimated gestational age is 6 weeks. course: care: private OB physician, Leakage of Fluid: none appreciated, Ultrasound: the patient has not had an ultrasound. Previous pregnancies: in previous pregnancies patient has had no complications. The patient has not experienced similar symptoms in the past. The patient has not recently seen a physician. Patient reports approximately 6 weeks , G2, P1, experiencing vaginal bleeding, spotting for the last 1 to 2 weeks. Denies trauma. Denies urinary symptoms. Seen by OB at the beginning of this. Reports left lower abdominal cramping that is intermittent. No current abdominal pain. No flank pain. No fever. No vaginal discharge.. 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 - Social history:: Smoking status: Patient denies any tobacco usage or history of. - Family history:: not pertinent. - Hospitalizations: : No recent hospitalization is reported. ROS: 20:30 Constitutional: Negative for fever, chills, and weight loss, Cardiovascular: Negative rn for chest pain, palpitations, and edema, Respiratory: Negative for shortness of breath, cough, wheezing, and pleuritic chest pain, Abdomen/GI: Positive for intermittent left lower quadrant abdominal pain Back: Negative for injury and pain, : Positive for vaginal spotting MS/Extremity: Negative for injury and deformity, Skin: Negative for injury, rash, and discoloration, Neuro: Negative for headache, weakness, numbness, tingling, and seizure, Exam: 20:30 Constitutional: This is a well developed, well nourished patient who is awake, alert, rn and in no acute distress. Cardiovascular: Regular rate and rhythm. No pulse deficits. Respiratory: No increased work of breathing, no retractions or nasal flaring. Abdomen/GI: Soft, no focal abdominal tenderness. No rebound Back: No spinal tenderness. No costovertebral tenderness. Full range of motion. Skin: Warm, dry MS/ Extremity: Pulses equal, no cyanosis. Neuro: Awake and alert, GCS 15 Vital Signs: 19:34 BP 130 / 79; Pulse 84; Resp 16; Temp 98.5(O); Pulse Ox 100% ; Weight 102.06 kg; Height nj1 5 ft. 2 in. ; Pain 0/10; 19:34 Body Mass Index 41.15 (102.06 kg, 157.48 cm) nj1 19:34 Pain Scale: Adult nj1 MDM: 19:58 Patient medically screened. rn 21:37 Differential diagnosis: ectopic , UTI, threatened miscarriage, subchorionic rn hemorrhage. Data reviewed: vital signs, nurses notes, lab test result(s), radiologic studies, ultrasound, and as a result, I will discharge patient. Counseling: I had a detailed discussion with the patient and/or guardian regarding the historical points, exam findings, and any diagnostic results supporting the discharge/admit diagnosis, lab results, radiology results, the need for outpatient follow up, to return to the emergency department if symptoms worsen or persist or if there are any questions or concerns that arise at home. Special discussion: I discussed with the patient/guardian in detail that at this point there is no indication for admission to the hospital. It is understood, however, that if the symptoms persist or worsen the patient needs to return immediately for re-evaluation. Based on the history and exam findings, there is no indication for further emergent testing or inpatient evaluation. I discussed with the patient/guardian the need to see the OB Gyne specialist for further evaluation of the symptoms. ED course: Patient without acute findings, slightly diminished heart rate but cardiac activity present and no other abnormalities found. Urine clean. Rh- will give RhoGAM. Already has OB follow-up on Monday. I have personally reviewed all of the results, including but not limited to blood tests and imaging deemed necessary to safely discharge this patient at this time. All results given to and printed out for patient. I personally went over all the results with the patient and answered all questions. Patient will follow-up with PCP and or specialist as discussed. Return precautions given and understood.. 05/04 20:00 Order name: Abo/rh Typing 05/04 20:00 Order name: Basic Metabolic Panel; Complete Time: 21:27 rn 05/04 20:00 Order name: CBC with Diff; Complete Time: 21:27 rn 05/04 20:00 Order name: Quantitative Hcg; Complete Time: 21:27 rn 05/04 20:00 Order name: Urinalysis w/ reflexes; Complete Time: 21:27 05/04 21:45 Order name: Rh Typing [facility] 05/04 21:45 Order name: Antibody Screen [facility] 05/04 21:45 Order name: Fetalscreen [facility] 05/04 21:45 Order name: Cord Rh type [facility] 05/04 21:45 Order name: Rhogam [facility] 05/04 20:00 Order name: US Transvaginal Ob; Complete Time: 21:27 rn 05/04 20:00 Order name: IV Saline Lock; Complete Time: 20:29 rn 05/04 20:00 Order name: Labs collected and sent; Complete Time: 20:29 rn 05/04 20:00 Order name: NPO; Complete Time: 20:29 rn Administered Medications: 22:55 Drug: Rho D Immune Globulin IM 300 mcg IM once Route: IM; Site: right ventrogluteal; as6 23:01 Follow up: Response: No adverse reaction as6 Disposition Summary: 05/04/23 21:38 Discharge Ordered Notes: Location: Home rn Problem: new rn Symptoms: have improved rn Condition: Stable rn Diagnosis - Threatened rn Followup: rn - With: Private Physician - When: As needed - Reason: Recheck today's complaints, Re-evaluation by your physician Discharge Instructions: - Discharge Summary Sheet rn - Threatened Miscarriage rn - Vaginal Bleeding During , First Trimester rn Forms: - Medication Reconciliation Form rn - Thank You Letter rn - Antibiotic internet merchant - Prescription Opioid Use rn - Patient Portal Instructions rn - Leadership Thank You Letter rn Signatures: Dispatcher [employer] [facility] Everardo Combs MD MD rn Slawson, Ashby, RN RN as6 Shahbaz, Yumiko, RN RN nj1
--- NOTE | 2023-05-04 21:39 | ER ---
Nurse's Notes [facility] Name: Theresa Green Age: 23 yrs Sex: Female : 2000 Arrival Date: 05/04/2023 Time: 18:54 Bed DX1 Private MD: Diagnosis: Threatened Presentation: 05/04 19:34 Chief complaint: Patient states: 6 weeks . Has had vaginal spotting for about a nj1 week, along with cramping on/off since. . Seen by OB on Apr 21. Coronavirus screen: Vaccine status: Patient reports receiving the 2nd dose of the covid vaccine. Ebola Screen: Patient denies travel to an Ebola-affected area in the 21 days before illness onset. Initial Sepsis Screen: Does the patient meet any 2 criteria? No. Patient's initial sepsis screen is negative. Does the patient have a suspected source of infection? No. Patient's initial sepsis screen is negative. Risk Assessment: Do you want to hurt yourself or someone else? Patient reports no desire to harm self or others. Onset of symptoms was April 27, 2023. 19:34 Method Of Arrival: Ambulatory [facility] 19:34 Acuity: DANIELA 3 nj1 Triage Assessment: 23:03 General: Appears in no apparent distress. Behavior is calm, cooperative. Respiratory: as6 Respiratory effort is even, unlabored. 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 - Social history:: Smoking status: Patient denies any tobacco usage or history of. - Family history:: not pertinent. - Hospitalizations: : No recent hospitalization is reported. Screenin:01 [facility] ED Fall Risk Assessment (Adult) Score/Fall Risk Level 0 - 2 = Low Risk. Abuse as6 screen: Denies threats or abuse. Denies injuries from another. Nutritional screening: No deficits noted. Tuberculosis screening: No symptoms or risk factors identified. Assessment: 21:41 General: contacted lab to notify of pt needing Rho Jerrell. as6 Vital Signs: 19:34 BP 130 / 79; Pulse 84; Resp 16; Temp 98.5(O); Pulse Ox 100% ; Weight 102.06 kg; Height nj1 5 ft. 2 in. ; Pain 0/10; 19:34 Body Mass Index 41.15 (102.06 kg, 157.48 cm) nj1 19:34 Pain Scale: Adult [facility] ED Course: 18:57 Patient arrived in ED. im 19:36 Triage completed. nj1 19:37 Arm band placed on right wrist. nj1 19:58 Everardo Combs MD is Attending Physician. rn 20:22 Urinalysis w/ reflexes Sent. bc6 20:29 Abo/rh Typing Sent. bc6 20:30 Basic Metabolic Panel Sent. bc6 20:30 CBC with Diff Sent. bc6 20:30 Quantitative Hcg Sent. bc6 20:30 Inserted saline lock: 20 gauge in left antecubital area, using aseptic technique. Blood bc6 collected. 20:53 US Transvaginal Ob In Process Unspecified. EDMS 23:01 Bed in low position. Call light in reach. Provided Education on: follow up. as6 23:02 No provider procedures requiring assistance completed. IV discontinued, intact, as6 bleeding controlled, No redness/swelling at site. Pressure dressing applied. Administered Medications: 22:55 Drug: Rho D Immune Globulin IM 300 mcg IM once Route: IM; Site: right ventrogluteal; as6 23:01 Follow up: Response: No adverse reaction as6 Medication: 23:02 VIS not applicable for this client. as6 Outcome: 21:38 Discharge ordered by . rn 23:02 Discharged to home ambulatory, with significant other, as6 23:02 Condition: stable 23:02 Discharge instructions given to patient, Instructed on discharge instructions, follow up and referral plans. Demonstrated understanding of instructions, follow-up care, 23:03 Patient left the ED. as6 Signatures: Dispatcher [employer] EDMS Everardo Combs MD MD rn Slawson, Ashby RN RN as6 Cheryl Hernandez bc6 Yumiko Hartmann RN RN nj1 Janiya Keita im
[2023-05-05 00:49] VITALS: BP 130/79; TEMP 98.5; O2SAT 100
== END 2023-05-04 23:03 | disposition home or self-care (01) ==
LOC: ER 18:54
DX: O20.0 Threatened abortion (principal); Z88.0 Allergy status to penicillin
CPT/HCPCS: 85025; 81001; 80048; 36415; 86900; 86850; 86901 ×2; 84702; 76817; 96372; 99284; J2790